=== PATIENT | female | born 1945 | race Caucasian/White ===

== ENCOUNTER 2016-09-28 19:10 | Inpatient (IN) | payer OTHER, MEDICARE ==
[~2016-09-28] VITALS: Ht 170.2 cm; Wt 105.0 kg
[~2016-09-28 19:10] MED LIST: ADVAIR 250-501 EACH INH; ALDACTONE50 M1 PO; AMBIEN5 M1 PO; AQUAPHOR396 GM TOP; COLACE100 M1 PO; DESITIN56 GM; DURAGESIC1 EAC1 TOP; EUCERIN CREME120 GM TOP; FENTANYL1 EAC2 TOP; FERROUS SULFAT325 M3 PO; FLORASTOR250 M1 PO; FUROSEMIDE20 M1 PO; FUROSEMIDE40 M1 PO; HYDROXYZINE HCL25 M2 PO; IPRAT-ALBUT 0.5-3 ML INH/SOL; LASIX40 M1 PO; LOTRIMIN AF12 GM TOP; LUMIGAN2.5 ML OPH; MELATONIN3 M4 PO; MORPHINE SULFAT15 M4 PO; MUPIROCIN22 GM TOP; MYLANTA PO; NEURONTIN100 M1 PO; NYSTATIN15 G1 TOP; OXYCODONE HCL10 M2 PO; PREDNISONE10 M2 PO; PREMARIN0.625 M1 PO; PREMARIN30 GM TOP; PROTONIX40 M3 PO; PROVENTIL HFA6.7 GM INH; ROZEREM8 M1 PO; SENNA8.6 M3 PO; SOTALOL80 M1 PO; SPIRIVA18 MCG INH; TEMOVATE15 GM TOP; TIZANIDINE HCL4 M1 PO; XEROFORM PETRO1 EAC1 TOP; XIFAXAN550 M1 PO
--- NOTE | 2016-09-28 19:16 | NUR ---
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
--- NOTE | 2016-09-28 19:43 | NUR ---
PT TO ED FOR WORSENING SOB AND COUGH OVER PAST TWO DAYS, REPORTS SHE WAS ADMITTED FOR A WEEK IN AUGUST WITH PNA, FEELS "ITS THE SAME" STARTED ON A ZPACK BY SARITA YESTERDAY BUT DOES NOT FEEL ANY BETTER. COARSE, NON-PRODUCTIVE COUGH NOTED, AUDIBLE WHEEZING IN TRIAGE.
--- NOTE | 2016-09-28 20:07 | ED DYSPNEA/ASTHMA COMPLAINT ---
History of Present Illness General Chief Complaint: Dyspnea (COPD, CHF, Other) Stated Complaint: SOB Source: patient, family, old records Exam Limitations: no limitations Vital Signs & Intake/Output Vital Signs & Intake/Output Vital Signs Date Time Temp Pulse Resp B/P Pulse O2 O2 Flow FiO2 Ox Delivery Rate 09/28 2258 98.6 66 24 100/62 92 Room Air 09/28 2123 99.0 71 16 126/59 95 Room Air 09/28 2014 97 09/28 1943 97.6 71 22 154/77 96 Room Air ED Intake and Output 09/29 0000 09/28 1200 Intake Total Output Total 700 Balance -700 Output, Urine 700 Patient 237 lb Weight Allergies Coded Allergies: azithromycin (Mild, RASH, ITCHY 09/28/16) Penicillins (ITCHY RASH 09/28/16) Sulfa (Sulfonamide Antibiotics) (ITCHY RASH 09/28/16) adhesive tape (ITCHY RASH 09/28/16) amantadine (ITCHY RASH 09/28/16) cefadroxil (ITCHY RASH 09/28/16) codeine (ITCHY RASH 09/28/16) erythromycin base (ITCHY RASH 09/28/16) sulfadiazine (ITCHY RASH 09/28/16) latex (Intermediate, CONTACT DERMATITIS 04/15/16) Triage Note: PT TO ED FOR WORSENING SOB AND COUGH OVER PAST TWO DAYS, REPORTS SHE WAS ADMITTED FOR A WEEK IN AUGUST WITH PNA, FEELS "ITS THE SAME" STARTED ON A ZPACK BY SARITA YESTERDAY BUT DOES NOT FEEL ANY BETTER. COARSE, NON-PRODUCTIVE COUGH NOTED, AUDIBLE WHEEZING IN TRIAGE. Triage Nurses Notes Reviewed? yes HPI: Patient is a 71-year-old female presents complaining of dyspnea. Symptoms 2-3 days. Cough with clear sputum production. Dyspnea is moderate at rest, worsens with lying flat and exertion. Patient has used her nebulizer 3 times today for albuterol treatments with minimal improvement. Patient was hospitalized approximately 7 weeks ago for pneumonia. Positive associated weakness. Chronic bilateral lower extremity edema that is unchanged per patient. Patient denies chest pain, fevers. (FEROZ LANG,AZUL) Reconcile Medications Albuterol Sulfate (Proventil Hfa) 6.7 GM HFA.AER.AD 2 PUF INH Q6 PRN wheezinG (Reported) Clobetasol Propionate (Temovate) 15 GM OINT...G. 1 PAM TOP BID skin lesions Cyanocobalamin (Vitamin B-12) (Vitamin B-12) 500 MCG TABLET 2 TAB PO DAILY SUPPLEMENT (Reported) Ergocalciferol (Vitamin D2) (Vitamin D2) 50,000 UNIT CAPSULE 1 CAP PO Q30D SUPPLEMENT (Reported) Estrogens, Conjugated (Premarin) 30 GM CREAM.APPL 1 PAM TOP TID women health (Reported) Fentanyl 1 EACH PATCH.TD72 25 MCG TOP Q72H Pain Apply to right hip, follow up with your pain doctor Ferrous Sulfate 325 MG TABLET 1 TAB PO BID iron (Reported) Fluticasone/Salmeterol (Advair 250-50 Diskus) 1 EACH BLST.W.DEV 1 PUF INH BID lung (Reported) Furosemide 20 MG TABLET 1 TAB PO DAILY FLUID RETENTION Gabapentin (Neurontin) 100 MG CAPSULE 2 CAP PO TID pain (Reported) Hydroxyzine HCl (Unknown Strength) TABLET (Unknown Dose) PO AD PRN ITCHING ( Reported) Ipratropium/Albuterol Sulfate (Iprat-Albut 0.5-3(2.5) MG/3 Ml) 3 ML AMPUL.NEB 3 ML INH/MAGO Q6 PRN shortness of breath (Reported) Mineral Oil/Petrolatum,White (Eucerin Creme) 120 GM CREAM..G. 1 PAM TOP DAILY dry skin (Reported) Nystatin 15 GM CREAM..G. 1 PAM TOP BID antifungal (Reported) apply to affected area(s) Oxycodone HCl 10 MG TABLET 1 TAB PO TID PAIN (Reported) Pantoprazole Sodium (Protonix) 40 MG TABLET.DR 1 TAB PO DAILY stomach ( Reported) Petrolatum,White (Aquaphor) 396 GM OINT...G. 1 PAM TOP DAILY skin lesion apply on left leg Ramelteon (Rozerem) 8 MG TABLET 1 TAB PO QPM PRN SLEEP Take 30 minutes before bedtime for sleep. Rifaximin (Xifaxan) 550 MG TABLET 1 TAB PO BID diarrhea (Reported) Saccharomyces Boulardii (Florastor) 250 MG CAPSULE 250 MG PO BID probiotic ( Reported) Sennosides (Senna) 8.6 MG TABLET 2 TAB PO AT BEDTIME constipation (Reported) Sotalol HCl (Sotalol) 80 MG TABLET 0.5 TAB PO BID heart (Reported) Tiotropium Comins (Spiriva) 18 MCG CAP.W.DEV 1 CAP INH DAILY lung (Reported) Tizanidine HCl 4 MG TABLET 1 TAB PO QPM sleep (Reported) Zinc Oxide (Desitin) (Unknown Strength) CREAM..G. (Unknown Dose) TID skin ( Reported) (NOEMY HOLLAND,ROSE Jones) Past History Travel History Traveled to [place] past 21 day No Medical History Any Pertinent Medical History? 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 History of MRSA: No History of VRE: No History of CDIFF: No Pneumonia Vaccine: 09/16/13 Influenza Vaccine: 06/18/16 Surgical History Surgical History: cholecystectomy, hysterectomy, knee replacement, cervical disc surgery ulnar surgery resection of GI carcinoma left heel spur surgery Psychosocial History Who do you live with Patient/Self Services at Home Nursing What is your primary language Maori Tobacco Use: Current Daily Use Daily Tobacco Use Amount/Type: => 5 Cigarettes daily ETOH Use: denies use Illicit Drug Use: denies illicit drug use Family History Family History, If Any: FATHER (Throat cancer and smoker). Hx Contributory? No (AZUL JACKSON) Review of Systems Review of Systems Constitutional: Reports: malaise, weakness. Denies: chills, fever. EENTM: Reports: no symptoms. Respiratory: Denies: cough, short of breath. Cardiovascular: Reports: orthopena, peripheral edema. Denies: chest pain. GI: Denies: abdominal pain, nausea, vomiting. Musculoskeletal: Reports: back pain (chronic). Skin: Denies: rash. Neurological/Psychological: Denies: headache, numbness. Hematologic/Endocrine: Denies: bruising, bleeding. Immunologic/Allergic: Denies: splenectomy, lymphadenopathy. (AZUL JACKSON) Physical Exam Physical Exam General Appearance: alert, awake, obese Head: atraumatic, normal appearance Eyes: Bilateral: normal appearance, PERRL, EOMI. Ears, Nose, Throat: normal pharynx, hearing grossly normal Neck: normal inspection, supple, full range of motion Respiratory: DIFFUSE MODERATE INSPIRATORY AND EXPIRATORY WHEEZING WITH BIBASILAR RHONCHI Cardiovascular: regular rate/rhythm Gastrointestinal: soft, non-tender Extremities: 3+ BILATERAL LOWER EXTREMITY EDEMA Skin: intact, normal color, warm/dry Lymphatic: no anterior cervical apryl Core Measures ACS in differential dx? Yes ASA ordered for poss ACS? No-ACS ruled out Severe Sepsis Present: No Septic Shock Present: No (FEROZ LANG,AZUL) Progress Differential Diagnosis: asthma, AMI, bronchitis, CHF, COPD, pulmonary embolism, pneumonia, unstable angina Plan of Care: Orders Procedure Date/time Status Heart Healthy Diet 09/29 B Active CBC WITHOUT DIFFERENTIAL 09/29 06 Active BASIC ELECTROLYTES PLUS BUN&CR 09/29 0600 Active TRC EVALUATION (GEN) 09/28 2300 Active Intake & Output 09/28 225 Active Pathway - chart 09/28 225 Active House Staff 09/28 225 Active Patient Data 09/28 2252 Active Patient Data 09/28 2230 Active Saline Lock 09/28 2200 Active Misc Message 09/28 2200 Active ED Holding Orders 09/28 2200 Active Admit to inpatient 09/28 220 Active Vital Signs 09/28 2200 Active Code Status 09/28 2200 Active TROPONIN LEVEL 09/28 2014 Complete B-TYPE NATRIURETIC PEP (BNP) 09/28 2014 Complete RAPID VIRAL INFLUENZA A 09/28 2011 Complete BLOOD CULTURE 09/28 2011 Active PROTHROMBIN TIME 09/28 2011 Complete LACTIC ACID 09/28 2011 Complete EKG 09/28 2011 Active COMPREHENSIVE METABOLIC PANEL 09/28 1944 Complete CBC WITHOUT DIFFERENTIAL 09/28 1944 Complete VTE Mechanical Prophylaxis 09/28 UNK Active Telemetry/Staff Trainer 09/28 UNK Active Current Medications Sig/Barbara Start time Last Medication Dose Stop Time Status Admin Melatonin 3 MG AT BEDTIME 09/29 2199 AC (Melatonin) Tizanidine HCl 4 MG QPM 09/29 2199 AC (Zanaflex) Ferrous Sulfate 325 MG BID 09/29 1000 AC (Feosol) Furosemide 40 MG DAILY 09/29 1000 AC (Lasix) Sotalol HCl 40 MG BID 09/29 1000 AC (Betapace) Tiotropium Comins 1 PUF DAILY 09/29 1000 AC (Spiriva) Heparin Sodium 5,000 UNIT Q8 09/29 0600 AC (Porcine) Methylprednisolone 40 MG Q8 09/28 2359 AC (Solumedrol) Oxycodone HCl 10 MG TID PRN 09/28 2330 AC (Roxicodone) Acetaminophen 650 MG Q6P PRN 09/28 2300 AC (Tylenol) Laboratory Tests 09/28/16 2312: Lactic Acid Cancelled 09/28/162014: Lactic Acid 0.7 09/28/16 2015: Anion Gap 10, Estimated GFR 45 L, BUN/Creatinine Ratio 16.7, Glucose 99, Calcium 8.6, Total Bilirubin 0.5, AST 36, ALT 13, Alkaline Phosphatase 149 H, Troponin I < 0.01, Dtx-D-Tvndtgabvam Pept 2020 H, Total Protein 6.8, Albumin 3.5, Globulin 3.3, Albumin/Globulin Ratio 1.1, PT 11.4, INR 1.09, CBC w Diff NO MAN DIFF REQ, RBC 3.54 L, MCV 98.1, MCH 32.8 H, RDW 14.6 H, MPV 8.1, Gran % 68.8, Lymphocytes % 19.3 L, Monocytes % 7.6, Eosinophils % 3.5, Basophils % 0.8 , Absolute Granulocytes 3.4, Absolute Lymphocytes 0.9 L, Absolute Monocytes 0.4 , Absolute Eosinophils 0.2, Absolute Basophils 0, PUBS MCHC 33.4 Microbiology 09/28 2049 BLOOD: Blood Culture - RECD 09/28 2014 BLOOD: Blood Culture - RECD Patient re-evaluated multiple times. Mild improvement after nebulizer treatment. Results of labs and chest x-ray discussed with patient and her . Patient ambulated to bathroom with significant respiratory distress and oxygen saturation down to 90-91% on room air. Discussed with Dr. Vallejo. Dr. Vallejo discussed patient with Dr. Campos for admission (AZUL JACKSON) Diagnostic Imaging: Viewed by Me: Radiology Read. Discussed w/RAD: Radiology Read. CXR Impression: PATIENT: MAGDIEL SAMAYOA PRESENT AGE: 71 PATIENT ACCOUNT NO: [id number] : 47 LOCATION: [facility] ORDERING PHYSICIAN: RETA DASILVA DO SERVICE DATE: 09/28/16 EXAM TYPE: RAD - XRY-CHEST XRAY, PA AND LATERAL EXAMINATION: XR CHEST CLINICAL INFORMATION: Cough. Shortness of breath. COMPARISON: Chest x-ray 08/22/2016. TECHNIQUE: Chest portable, 8:37 AM FINDINGS: There is persistent congestive heart failure with prominence of the pulmonary vessels and increased interstitial markings. No dense consolidation. No pleural effusion. Heart size is enlarged. IMPRESSION: Persistent mild pulmonary vascular congestion, congestive heart failure. DICTATED BY: DELMER CANTRELL MD DATE/TIME DICTATED:09/28/162106 DETECTIVE AND INTELLIGENCE ANALYST :AKOSUA DATE/TIME TRANSCRIBED:09/28/162106 CONFIDENTIAL, DO NOT COPY WITHOUT APPROPRIATE AUTHORIZATION. <Electronically signed in Other Vendor System> SIGNED BY: DELMER CANTRELL MD 09/28/162111 Initial ED EKG: normal axis, normal intervals, normal p-waves, normal QRS complex, normal sinus rhythm, no ST T wave changes Rhythm Strip: normal sinus rhythm (AZUL JACKSON) Departure Departure Disposition: STILL A PATIENT Condition: Stable Clinical Impression Primary Impression: CHF exacerbation Qualifiers: Congestive heart failure type: unspecified congestive heart failure type Qualified Code: I50.9 - Heart failure, unspecified Secondary Impressions: COPD exacerbation Referrals: JOHANNA CHRISTIANSON MD (PCP/Family) Departure Forms: Customer Survey General Discharge Information (AZUL JACKSON) Admission Note Spoke With: ANANYA CAMPOS MD Documentation of Exam: Documentation of any treatments & extenuating circumstances including Concerns Regarding Discharge (functional status, medication knowledge or non-compliance, living conditions, etc.) that warrant an admission rather than observation: pt with bronchospasm, wheezing, most consistent with copd, also with component, of chf... pt will be admitted to tele for rule out and cardiac monitoring. PA/DELIVERY STOCK CLERK Co-Sign Statement Statement: ED Attending supervision documentation- [] I saw and evaluated the patient. I have also reviewed all the pertinent lab results and diagnostic results. I agree with the findings and the plan of care as documented in the PA's/DELIVERY STOCK CLERK's documentation. [x] I have reviewed the ED Record and agree with the PA's/DELIVERY STOCK CLERK's documentation. pt signed out to me... pt to be admitted for copd/chf exacerbation... see note above. [] Additions or exceptions (if any) to the PAs/DELIVERY STOCK CLERK's note and plan are summarized below: [] (NOEMY HOLLAND,ROSE Jones) Critical Care Note Critical Care Note Critical Care Time: non-applicable (FEROZ LANG,AZUL)
--- NOTE | 2016-09-28 20:09 | NUR ---
RICKEY Roberto AT BEDSIDE
--- NOTE | 2016-09-28 20:25 | NUR ---
LABS SENT (BLUE,SST,LAV,JOSE, BC#1)
[2016-09-28 20:47] LABS: ABSOLUTE BASOPHIL COUNT 0 /CUMM (0.0-0.2); ABSOLUTE EOSINOPHIL COUNT 0.2 /CUMM (0.0-0.7); ABSOLUTE GRANULOCYTE CT 3.4 /CUMM (1.4-6.5); ABSOLUTE LYMPH COUNT 0.9 /CUMM (1.2-3.4); ABSOLUTE MONOCYTE COUNT 0.4 /CUMM (0.10-0.60); BASOPHIL % 0.8 % (0.0-2.0); EOSINOPHIL % 3.5 % (0-5); GRANULOCYTE % 68.8 % (42.2-75.2); HEMATOCRIT 34.7 % (37-47); MEAN CORPUSCULAR HGB 32.8 PG (27.0-31.0); MEAN CORPUSCULAR HGB CONC 33.4 G/DL (33.0-37.0); MEAN CORPUSCULAR VOLUME 98.1 FL (81.0-99.0); MEAN PLATELET VOLUME 8.1 FL (7.4-10.4); PLATELET COUNT 224 /CUMM (130-400); RBC DISTRIBUTION WIDTH 14.6 % (11.5-14.5); RED BLOOD CELL CT 3.54 /CUMM (4.20-5.40); WHITE BLOOD CELL COUNT 4.9 /CUMM (4.8-10.8)
--- NOTE | 2016-09-28 20:57 | NUR ---
20G IV PLACED IN RIGHT AC. FLUSHED PER PROTOCOL. NO REDNESS, SWELLING, PAIN, OR HEAT AT SITE. SOLUMEDROL, 125MG IV, ADMINISTERED PER EMAR. 2ND SET OF CULTURES DRAWN AND SENT TO LAB. PT TOLERATED PROCEDURES WELL.
[2016-09-28 20:59] LABS: PT 11.4 SEC (9.4-12.5)
--- NOTE | 2016-09-28 21:12 | RADIOLOGY REPORT ---
EXAMINATION: XR CHEST CLINICAL INFORMATION: Cough. Shortness of breath. COMPARISON: Chest x-ray 08/22/2016. TECHNIQUE: Chest portable, 8:37 AM FINDINGS: There is persistent congestive heart failure with prominence of the pulmonary vessels and increased interstitial markings. No dense consolidation. No pleural effusion. Heart size is enlarged. IMPRESSION: Persistent mild pulmonary vascular congestion, congestive heart failure.
--- NOTE | 2016-09-28 22:00 | NUR ---
PT AMBULATED TO BATHROOM. O2 SATS 90-91%.
--- NOTE | 2016-09-28 22:10 | NUR ---
RESPIRATORY ADMINISTERED TREATMENT TO PT. LASIX, 20MG IV, ADMINISTERED PER EMAR. PT TO BE ADMITTED AND AGREEABLE TO PLAN OF CARE. WILL CONTINUE TO MONITOR.
[2016-09-28] MEDS ORDERED: HYDROXYZINE HCL50 M1 PO (22:18)
[2016-09-28] MEDS ORDERED: OXYCODONE HCL10 M2 PO (22:18)
[2016-09-28] MEDS ORDERED: VITAMIN D250000 UNIT PO (22:19)
[2016-09-28] MEDS ORDERED: VITAMIN B-12500 MC2 PO (22:19)
--- NOTE | 2016-09-28 22:35 | History & Physical ---
JIM HOLLAND,[facility] – [place] 09/28/16 2234: General Information and HPI MD Statement: I have seen and personally examined MAGDIEL SAMAYOA and documented this H&P. The patient is a 71 year old F who presented with a patient stated chief complaint of shortness of breath. Source of Information: patient, old records Exam Limitations: no limitations History of Present Illness: Ms Margarita is a 71 y/o F with PMHx of diastolic CHF, CAD, PAF not on anti- coagulation, COPD not on home oxygen, chronic venous insufficiency c/b leg ulcers, HTN, fibromyalgia, depression/anxiety, osteoarthritis, cirrhosis c/b esophageal varices and upper GI bleed and JOSSUE who presents with worsening SOB x 3 days. SOB is present even at rest, but is exacerbated by exertion. She endorses cough productive of clear sputum and orthopnea as well and reports that she has required 4 pillows last night, increased from her baseline of 3 pillows. She has been using her nebulizer three times per day with no improvement. She denies fever, chills, chest pain, nausea, vomiting, abdominal pain, diarrhea, urinary symptoms, lightheadedness or dizziness. She has bilateral lower extremity edema secondary to chronic venous insufficiency at baseline which is unchanged per patient. Patient reports that she saw Dr. Ayala earlier in the week and was fine at that time. Of note, patient was hospitalized here at [facility] between 08/22/2016 and 08/29/2016 for COPD exacerbation, treated with steroids and IV azithromycin and discharged on prednisone taper which she has completed. She had sinus bradycardia during that admission and was discharged on Holter monitor to see if her heart rate is acceptable during activities of daily living, the results of which were normal per patient. Allergies/Medications Allergies: Coded Allergies: azithromycin (Mild, RASH, ITCHY 09/28/16) Penicillins (ITCHY RASH 09/28/16) Sulfa (Sulfonamide Antibiotics) (ITCHY RASH 09/28/16) adhesive tape (ITCHY RASH 09/28/16) amantadine (ITCHY RASH 09/28/16) cefadroxil (ITCHY RASH 09/28/16) codeine (ITCHY RASH 09/28/16) erythromycin base (ITCHY RASH 09/28/16) sulfadiazine (ITCHY RASH 09/28/16) latex (Intermediate, CONTACT DERMATITIS 04/15/16) Home Med list Albuterol Sulfate (Proventil Hfa) 6.7 GM HFA.AER.AD 2 PUF INH Q6 PRN wheezinG (Reported) Clobetasol Propionate (Temovate) 15 GM OINT...G. 1 PAM TOP BID skin lesions Cyanocobalamin (Vitamin B-12) (Vitamin B-12) 500 MCG TABLET 2 TAB PO DAILY SUPPLEMENT (Reported) Ergocalciferol (Vitamin D2) (Vitamin D2) 50,000 UNIT CAPSULE 1 CAP PO Q30D SUPPLEMENT (Reported) Estrogens, Conjugated (Premarin) 30 GM CREAM.APPL 1 PAM TOP TID women health (Reported) Fentanyl 1 EACH PATCH.TD72 25 MCG TOP Q72H Pain Apply to right hip, follow up with your pain doctor Ferrous Sulfate 325 MG TABLET 1 TAB PO BID iron (Reported) Fluticasone/Salmeterol (Advair 250-50 Diskus) 1 EACH BLST.W.DEV 1 PUF INH BID lung (Reported) Furosemide 20 MG TABLET 1 TAB PO DAILY FLUID RETENTION Gabapentin (Neurontin) 100 MG CAPSULE 2 CAP PO TID pain (Reported) Hydroxyzine HCl (Unknown Strength) TABLET (Unknown Dose) PO AD PRN ITCHING ( Reported) Ipratropium/Albuterol Sulfate (Iprat-Albut 0.5-3(2.5) MG/3 Ml) 3 ML AMPUL.NEB 3 ML INH/MAGO Q6 PRN shortness of breath (Reported) Mineral Oil/Petrolatum,White (Eucerin Creme) 120 GM CREAM..G. 1 PAM TOP DAILY dry skin (Reported) Nystatin 15 GM CREAM..G. 1 PAM TOP BID antifungal (Reported) apply to affected area(s) Oxycodone HCl 10 MG TABLET 1 TAB PO TID PAIN (Reported) Pantoprazole Sodium (Protonix) 40 MG TABLET.DR 1 TAB PO DAILY stomach ( Reported) Petrolatum,White (Aquaphor) 396 GM OINT...G. 1 PAM TOP DAILY skin lesion apply on left leg Ramelteon (Rozerem) 8 MG TABLET 1 TAB PO QPM PRN SLEEP Take 30 minutes before bedtime for sleep. Rifaximin (Xifaxan) 550 MG TABLET 1 TAB PO BID diarrhea (Reported) Saccharomyces Boulardii (Florastor) 250 MG CAPSULE 250 MG PO BID probiotic ( Reported) Sennosides (Senna) 8.6 MG TABLET 2 TAB PO AT BEDTIME constipation (Reported) Sotalol HCl (Sotalol) 80 MG TABLET 0.5 TAB PO BID heart (Reported) Tiotropium [place] (Spiriva) 18 MCG CAP.W.DEV 1 CAP INH DAILY lung (Reported) Tizanidine HCl 4 MG TABLET 1 TAB PO QPM sleep (Reported) Zinc Oxide (Desitin) (Unknown Strength) CREAM..G. 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 Psychosocial History Where do you live? Home Who Do You Live With? Brother Lives Below her Services at Home: Nursing Primary Language: Uruguayan Smoking Status: Current Everyday Smoker ETOH Use: denies use Illicit Drug Use: denies illicit drug use Functional Ability ADLs Independent: dressing, eating, toileting, bathing. Ambulation: cane Review of Systems Review of Systems Constitutional: Denies: chills, fever. EENTM: Reports: no symptoms. Cardiovascular: Denies: chest pain. Respiratory: Reports: cough, short of breath, sputum production. GI: Denies: abdominal pain, diarrhea, nausea, vomiting. Genitourinary: Reports: no symptoms. Musculoskeletal: Reports: no symptoms. Skin: Reports: no symptoms. Neurological/Psychological: Reports: no symptoms. Hematologic/Endocrine: Reports: no symptoms. Immunologic/Allergic: Reports: no symptoms. Exam & Diagnostic Data Last 24 Hrs of Vital Signs/I&O Vital Signs Date Time Temp Pulse Resp B/P Pulse O2 O2 Flow FiO2 Ox Delivery Rate 09/29 0037 Room Air 09/29 0025 Room Air 09/29 0015 98.5 62 20 122/60 93 Room Air 09/28 2258 98.6 66 24 100/62 92 Room Air 09/28 2123 99.0 71 16 126/59 95 Room Air 09/28 2014 97 09/28 1943 97.6 71 22 154/77 96 Room Air Intake & Output 09/29 0800 09/29 0000 09/28 1600 Intake Total Output Total 700 Balance -700 Output, Urine 700 Patient 107.501 kg 107.501 kg Weight Physical Exam General Appearance Alert, Oriented X3, No Acute Distress HEENT Mucous Membr. moist/pink Cardiovascular Regular Rate, Normal S1, Normal S2 Lungs Bilateral Wheezes and Rhonchi Scattered Throughout Lung [place] Abdomen Soft, No Tenderness, Positive Bowel Sounds Neurological No Gross Focal Deficits Noted Extremities No Clubbing, No Cyanosis, Bilateral Lower Extremities with Trace Edema And Chronic Venous Stasis Changes Last 24 Hrs of Labs/Jewel: Laboratory Tests 09/28/16 2312: Lactic Acid Cancelled 09/28/162014: Lactic Acid 0.7 09/28/16 2015: Anion Gap 10, Estimated GFR 45 L, BUN/Creatinine Ratio 16.7, Glucose 99, Calcium 8.6, Total Bilirubin 0.5, AST 36, ALT 13, Alkaline Phosphatase 149 H, Troponin I < 0.01, Tmm-Y-Cewbambfcxa Pept 2020 H, Total Protein 6.8, Albumin 3.5, Globulin 3.3, Albumin/Globulin Ratio 1.1, PT 11.4, INR 1.09, CBC w Diff NO MAN DIFF REQ, RBC 3.54 L, MCV 98.1, MCH 32.8 H, RDW 14.6 H, MPV 8.1, Gran % 68.8, Lymphocytes % 19.3 L, Monocytes % 7.6, Eosinophils % 3.5, Basophils % 0.8 , Absolute Granulocytes 3.4, Absolute Lymphocytes 0.9 L, Absolute Monocytes 0.4 , Absolute Eosinophils 0.2, Absolute Basophils 0, PUBS MCHC 33.4 Microbiology 09/28 2049 BLOOD: Blood Culture - RECD 09/28 2014 BLOOD: Blood Culture - RECD Diagnostic Data EKG Results Normal sinus rhythm HR 64 No significant change since previous tracing QTc 442 CXR Results Persistent mild pulmonary vascular congestion, congestive heart failure. Assessment/Plan Assessment: 71 y/o F with PMHx of COPD, diastolic CHF and PAF not on anti-coagulation who presents with SOB x 3 days. #COPD exacerbation: SOB, productive cough and significant rhonchi and wheezing on exam consistent with COPD exacerbation. CHF exacerbation is on the differential but less likely given CXR with only mild pulmonary vascular congestion, no signs of volume overload on exam and lack of oxygen requirement. Pneumonia unlikely in the absence of fever, leukocytosis and infiltrates on CXR. Patient is currently satting well on room air. * Solumedrol 40 mg IV Q8H started. * Azithromycin 500 mg PO QD x 1 dose, followed by 250 mg PO QD x 4 doses. * TRC and nebs. * Sputum Cx and BCx ordered. * Continue home inhalers Spiriva 1 puff QD and Symbicort 2 puffs BID. #Acute on chronic diastolic CHF: CXR with persistent mild pulmonary vascular congestion. pro BNP elevated at 2020 but not as high as previous admission (3490 ). No signs of volume overload on exam. Most recent ECHO with LVEF >65%. * Cardiology consulted. Appreciate their recs. * Patient admitted to the telemetry floor for continuous cardiac monitoring. * Monitor strict I/Os and daily weights. * Lasix 20 mg IV QD started. #Bilateral lower extremity swelling: Patient has chronic venous insufficiency at baseline and reports no increase in leg swelling from baseline, but DVT needs to be ruled out. * Doppler US of BLE ordered to rule out DVT. #Paroxysmal atrial fibrillation: Rhythm controlled with sotalol. Warfarin stopped in 2014 due to an episode of esophageal variceal bleeding. In sinus rhythm on admission. * Continue home sotalol 40 mg PO BID. #Chronic normocytic anemia: Hgb 11.1 on admission, which appears to be baseline for patient. * Continue home ferrous sulfate 325 mg PO BID. #Chronic pain: History of chronic pain secondary to arthritis and fibromyalgia. * Continue home oxycodone 30 mg PO TID PRN, gabapentin 200 mg PO TID and Fentanyl 25 mcg patch. * Tylenol 650 mg PO Q6H PRN for mild pain (scale 1-3). #Insomnia: * Continue home Tizanidine 4 mg PO QHS. * Melatonin 3 mg PO QPM. Diet: Heart Healthy DVT PPx: HSQ and ALPs CODE: FULL As Ranked By This Provider Problem List: 1. COPD exacerbation 2. CHF exacerbation Qualifiers Congestive heart failure type: unspecified congestive heart failure type Qualified Code: I50.9 - Heart failure, unspecified 3. Chronic venous insufficiency 4. Nicotine dependence 5. Paroxysmal atrial fibrillation Core Measures/Miscellaneous Acute Coronary Syndrome ACS Diagnosis: No Cerebrovascular Accident CVA/TIA Diagnosis: No Congestive Heart Failure CHF Diagnosis: Yes Date of most recent Echo: 08/24/16 Last Known EF %: 65 BLADIMIR/ARB for EF <40%: No (EF greater than 65%) Venous Thromboembolism VTE Risk Factors: Acute medical illness, Age > 40, CHF or Resp failure, Obesity, Smoking VTE Prophylaxis Ordered Inpt: Mech & Pharm No Mech VTE prophylaxis d/t: No contraindications No VTE Pharm Prophylaxis d/t: No contraindications VTE Diagnosis: No VTE Type: NONE VTE Confirmed by (Test): NONE Severe Sepsis Severe Sepsis Present: No Septic Shock Septic Shock Present: No Miscellaneous Documentation Attending Case Discussed With: ANANYA YU MD Primary Care Physician: JOHANNA CHRISTIANSON MD Patient sees these Specialists Computer Networker - Mark Anthony Ayala MD Pain Specialist - Zechariah Rowe MD Level of Patient Care: Telemetry GIOVANNI TINEO 09/28/16 2303: Resident Review Statement Resident Statement: examined this patient, discussed with internet project manager, agreed with internet project manager Other Findings: Patient is a 71-year-old woman with past medical history significant for paroxysmal atrial fibrillation(not on anticoagulation due to cirrhosis and esophageal varices) hypertension, COPD, GERD, GI bleed, chronic back pain with this radiations history of fibromyalgia arthritis insomnia osteoporosis, colon cancer , recently admitted to [facility] due to acute hypoxic respiratory failure from CHF and COPD, presented to the ED with a chief complaints of worsening shortness of breath for the last 3 days. Patient mentioned that for the last 3 days she was getting more short of breath both at rest and on exertion, used her nebulizer 3 times without much improvement in her symptoms. She was using 4 pillows at bedtime(usually uses 3 pillows). Also reported nonproductive cough. Denies any fever or chills recent infections/sick contacts or recent travels. Denied any chest discomfort palpitations. No urinary or bowel habit complaints. Appetite remains low. Denies any nausea vomiting or abdominal discomfort. She has a history of chronic bilateral lower extremity swelling with redness due to chronic venous stasis that remained unchanged. Of the note , she had bradycardia on her last admission to [facility] evaluated by Dr. Ayala and was discharged home with Holter monitor. She was seen at Dr. Ayala's office last week Holter monitor readings were checked that were normal Vitals on admission temperature 9 9, pulse 71, respiratory rate 16, blood pressure: 126/59 on room air. General Appearance: Alert, No Acute Distress, Skin: Grossly normal HEENT: PEERLA Neck: Supple, No JVD Cardiovascular: Regular Rate, Normal S1, Normal S2, No Murmurs Lungs: Bilateral rhonchi with wheeze on examination. Abdomen: Normal Bowel Sounds, Soft, positive suprapubic tenderness Neurological: Normal strength bilaterally in upper and lower extremities. With normal sensations cranial nerves 3-12 intact Extremities: Bilateral chronic edema with redness Vascular: Normal Pulses. Pertinent labs on admission WBC count 4.9, H&H 11.6/34.7, with MCV of 98 INR 1.09, elevated BUN and creatinine 20/1.2 Elevated proBNP 2020, first troponin negative with EKG done in the ED showed normal sinus rhythm. Chest x-ray Persistent mild pulmonary vascular congestion, congestive heart failure. Echocardiogram done in August showed:Normal left ventricular wall motion. Normal left ventricular ejection fraction visually estimated at greater than 65%. Restrictive filling pattern of the left ventricle for age (stage 3 diastolic dysfunction. Assessment and plan: 1.Acute Respiratory distress due to COPD exacerbation * We'll admit the patient to telemetry floor * Patient did receive one-time dose of IV Solu-Medrol 100 mg in the ED will continue with IV Solu-Medrol 40 mg every 8 hours. * pt received azithromycin as an out pt , no need to give any antibiotics at this time. * Continue home medications including Advair and Spiriva * Continue TRC nebs * Sputum and blood cultures * Oxygen as needed to keep saturations above 92% * Watch for any hemodynamic instability. 2. Acute on chronic diastolic heart failure * Elevated pro-BMP with chest x-ray findings inconsistent with CHF * Patient RECEIVED IV Lasix 40 mg in the ED will continue with IV Lasix 40 mg. * Call cardiology in the morning * Monitor strict ins and outs with daily weight checks. 3. History of paroxysmal atrial fibrillation not on anticoagulation due to cirrhosis and variceal bleed * Continue rate control with sotalol. 4. History of chronic normocytic anemia: * Continue home dose of ferrous sulfate. 5. History of chronic back pain * Continue fentanyl patch and oxycodone 5. History of anxiety and depression: * Continue home medications. * Continue melatonin for sleep 5. History of chronic venous insufficiency 6. DVT prophylaxis with Lovenox 7. Patient is full code ANANYA YU 09/29/16 0406: Attending MD Review Statement Attending Statement Attending MD Statement: examined this patient, discuss w/resident/PA/BAR CATCHER, agreed w/resident/PA/BAR CATCHER, reviewed EMR data (avail), reviewed images, amended to note Attending Assessment/Plan: Chief complaint: Shortness of breath, wheezing, cough PMH: HFpEF, CAD, paroxysmal A. fib not on anticoagulation secondary to previous GI bleed, COPD, HTN, fibromyalgia, osteoarthritis, JOSSUE, ? Fatty liver/cirrhosis: ?Variceal bleed in past Patient presented with acute worsening of shortness of breath, productive cough with white sputum. Patient also endorses orthopnea, denies fever, chills, increased leg swellings, weight gain, LOC, palpitations. Vitals: Afebrile, HR, RR, BP in acceptable range. Saturating 93% on room air. On exam: A O 3, moderate respiratory distress, no JVD, no lymphadenopathy, mucosa moist, neck supple, no focal neurological deficit. RS: extensive wheezing bilaterally. CVS: S1-S2, abdomen: Obese, NT, ND, bowel sounds present. Bilateral lower extremity venous stasis changes, with trace edema. Labs: Hemoglobin 11.6 chronic, creatinine 1.2, proBNP 2020, troponin less than 0.01 otherwise CBC, LFT, BMP unremarkable. CXR: Mild pulmonary vascular congestion A and P #1 COPD exacerbation: Extensive wheezing bilaterally, start of breath cough with mild sputum production. No evidence of pneumonia on x-ray. No fever or significant leukocytosis. Continue IV Solu-Medrol 40 mg every 8 hours, albuterol and ipratropium nebulization, O2 by nasal cannula if required, Mucinex by mouth twice a day. Even though patient mentions that she is allergic to azithromycin, patient received azithromycin previous hospitalization without any reaction, continue IV azithromycin at this point for antibiotics and anti-inflammatory effect for COPD. Patient has chronic stasis changes bilateral lower extremity, ? Functional status, obtain bilateral lower extremity DVT Doppler to rule out. As patient has acute worsening of shortness of breath. #2 acute on chronic heart failure: With preserved ejection fraction, chest x-ray showed mild congestion, patient's proBNP is elevated but not as significant and previous hospitalization. Continue Lasix 20 mg IV in a.m., patient has mildly elevated creatinine, strict I's and O's, daily weights, cardiology consult in a.m. #3 continue her home medications for CAD, HTN, fibromyalgia, osteoarthritis. #4 adequate pain control, DVT prophylaxis with heparin.
--- NOTE | 2016-09-28 22:58 | NUR ---
TRANSFERRED PT FROM RM 19 TO RM 10 PT TO BEDSIDE COMMODE
--- NOTE | 2016-09-28 22:59 | NUR ---
[facility] ASSIGNMENT [id number]
--- NOTE | 2016-09-28 23:43 | NUR ---
PT MEDICATED WITH 200 MG NEURONTIN AND 2 PUFFS SYMBICORT ORDERED. REPORT GIVEN TO AMOS VIVEROS
[2016-09-29 00:15] VITALS: BP 122/60
--- NOTE | 2016-09-29 04:08 | Admission Certification ---
Admission Certification Certification Statement - As attending physician, I certify that at the time of - admission, based on clinical presentation, severity of - symptoms, need for further diagnostic testing and - therapeutic interventions, and risk of adverse outcomes - without in-hospital treatment, in my clinical assessment, - this patient requires an acute hospital stay for a minimum - of two nights or longer. I have also considered psychsocial - factors such as support system, advanced age, financial - issues, cognitive issues, and failed out-patient treatments, - past re-admission history, safety of patient, and lack of - compliance as applicable. Specific rationale supporting this admission is: COPD exacerbation, acute on chronic heart failure
[2016-09-29 07:30] VITALS: BP 110/60
--- NOTE | 2016-09-29 07:48 | PN- Housestaff ---
OTMAS HOLLAND,[facility] 09/29/16 0747: Subjective Follow-up For: COPD exacerbation Chronic diastolic heart failure [place] paroxysmal A. fib Subjective: Patient seen and examined this morning. She was lying in bed in no acute distress. She reported being short of breath, cough ductal sputum. He is afebrile other vitals within normal limits. Review of Systems Constitutional: Reports: see HPI. Objective Last 24 Hrs of Vital Signs/I&O Vital Signs Date Time Temp Pulse Resp B/P Pulse O2 O2 Flow FiO2 Ox Delivery Rate 09/29 0730 98.1 53 20 110/60 93 Room Air 09/29 0037 Room Air 09/29 0025 Room Air 09/29 0015 98.5 62 20 122/60 93 Room Air 09/28 2258 98.6 66 24 100/62 92 Room Air 09/28 2123 99.0 71 16 126/59 95 Room Air 09/28 2015 97 09/28 1943 97.6 71 22 154/77 96 Room Air Intake & Output 09/29 1600 09/29 0800 09/29 0000 Intake Total Output Total 700 Balance -700 Output, Urine 700 Patient 107.501 kg 107.501 kg Weight Physical Exam General Appearance: Alert, Oriented X3, Cooperative, No Acute Distress Cardiovascular: Regular Rate, Normal S1, Normal S2 Lungs: extensive wheezing bilaterally Abdomen: Normal Bowel Sounds, Soft, No Tenderness Extremities: bilateral lower extremity edema and rednessstasis Current Medications: Current Medications Sig/Barbara Start time Last Medication Dose Route Stop Time Status Admin Acetaminophen 650 MG Q6P PRN 09/28 2300 AC PO Albuterol Sulfate 3 ML ONCE ONE 09/280 DC 09/28 INH 09/28 Albuterol Sulfate 3 ML ONCE ONE 09/28 2014 DC 09/28 INH 09/28 Azithromycin 250 MG DAILY 09/29 1000 AC 09/29 PO 10/02 1001 0914 Azithromycin 500 MG ONCE ONE 09/29 0145 DC 09/29 PO 09/29 0146 0344 Budesonide/ 2 PUF BID 09/28 2258 AC 09/29 Formoterol Fumarate INH 0915 Fentanyl Citrate 25 MCG ONCE ONE 09/28 2230 DC 09/28 TOP 09/28 2231 2246 Ferrous Sulfate 325 MG BID 09/29 1000 AC 09/29 PO 0914 Furosemide 40 MG DAILY 09/29 1000 DC IV Furosemide 20 MG DAILY 09/29 1000 AC 09/29 IV 0916 Furosemide 0 .STK-MED ONE 09/28 2203 DC IV Furosemide 20 MG ONCE ONE 09/28 2199 DC 09/28 IV 09/28 2200 220 Gabapentin 200 MG TID 09/28 2259 AC 09/29 PO 0914 Guaifenesin 600 MG Q12 PRN 09/29 0115 AC PO Heparin Sodium 5,000 UNIT Q8 09/29 0600 AC 09/29 (Porcine) SC 0559 Ipratropium [place] 2.5 ML ONCE ONE 09/28 2014 DC 09/28 INH 09/28 Melatonin 3 MG AT BEDTIME 09/29 2199 AC PO Methylprednisolone 40 MG Q8 09/28 2359 AC 09/29 IV 0559 Methylprednisolone 0 .STK-MED ONE 09/28 2030 DC .ROUTE Methylprednisolone 125 MG ONCE ONE 09/28 2014 DC 09/28 IV 09/28 Oxycodone HCl 10 MG TID PRN 09/28 2330 AC 09/29 PO 0914 Ramelteon 8 MG QPM PRN 09/28 2300 DC PO Sotalol HCl 40 MG BID 09/29 1000 AC 09/29 PO 0914 Tiotropium [place] 1 PUF DAILY 09/29 1000 AC 09/29 INH 0915 Tizanidine HCl 4 MG QPM 09/29 2199 AC PO Last 24 Hrs of Lab/Jewel Results Last 24 Hrs of Labs/Mics: Laboratory Tests 09/29/16 0635: Anion Gap 9, Estimated GFR 49 L, BUN/Creatinine Ratio 19.1, CBC w Diff NO MAN DIFF REQ, RBC 3.32 L, MCV 98.2, MCH 33.5 H, RDW 14.0, MPV 8.4, Gran % 82.4 H, Lymphocytes % 16.0 L, Monocytes % 1.0 L, Eosinophils % 0.1, Basophils % 0.5, Absolute Granulocytes 2.9, Absolute Lymphocytes 0.6 L, Absolute Monocytes 0 L, Absolute Eosinophils 0, Absolute Basophils 0, PUBS MCHC 34.1 09/28/16 2312: Lactic Acid Cancelled 09/28/16 2015: Lactic Acid 0.7 09/28/16 2015: Anion Gap 10, Estimated GFR 45 L, BUN/Creatinine Ratio 16.7, Glucose 99, Calcium 8.6, Total Bilirubin 0.5, AST 36, ALT 13, Alkaline Phosphatase 149 H, Troponin I < 0.01, [id number]-[id number] Pept 2020 H, Total Protein 6.8, Albumin 3.5, Globulin 3.3, Albumin/Globulin Ratio 1.1, PT 11.4, INR 1.09, CBC w Diff NO MAN DIFF REQ, RBC 3.54 L, MCV 98.1, MCH 32.8 H, RDW 14.6 H, MPV 8.1, Gran % 68.8, Lymphocytes % 19.3 L, Monocytes % 7.6, Eosinophils % 3.5, Basophils % 0.8 , Absolute Granulocytes 3.4, Absolute Lymphocytes 0.9 L, Absolute Monocytes 0.4 , Absolute Eosinophils 0.2, Absolute Basophils 0, PUBS MCHC 33.4 Microbiology 09/28 2049 BLOOD: Blood Culture - RES 09/28 2014 BLOOD: Blood Culture - RES Assessment/Plan Assessment: 71 y/o F with PMHx of COPD, diastolic CHF and PAF not on anti-coagulation who presents with SOB x 3 days. #COPD exacerbation: Current symptoms are most likely secondary to COPD exacerbation given significant rhonchi and wheezeing on exam. CHF exacerbation is on the differential but less likely given CXR with only mild pulmonary vascular congestion, no signs of volume overload on exam and lack of oxygen requirement. Pneumonia unlikely in the absence of fever, leukocytosis and infiltrates on CXR. Patient is currently satting well on room air. Solumedrol 40 mg IV Q8H started. Azithromycin 500 mg PO QD x 1 dose, followed by 250 mg PO QD x 4 doses. TRC and nebs.Sputum Cx and BCx pending, will Continue home inhalers Spiriva 1 puff QD and Symbicort 2 puffs BID. #Diastolic CHF: Patient is without any signs of acute exacerbation on exam. Appreciate their recs.Patient admitted to the telemetry floor for continous cardiac monitoring.Monitor strict I/Os and daily weights.Lasix 20 mg IV QD started. Cardiology consulted. Follow-up recommendations. #Paroxysmal atrial fibrillation: Rhythm controlled with sotalol. Warfarin stopped in 2014 due to an episode of esophageal variceal bleeding. In sinus rhythm on admission. * Continue home sotalol 40 mg PO BID. #Chronic normocytic anemia: Hgb 11.1 on admission, baseline 8-9. * Continue home ferrous sulfate 325 mg PO BID. #Chronic pain: History of chronic pain secondary to arthritis and fibromyalgia. * Continue home morphine 15 mg Q3H PO PRN for pain scale 6-10, gabapentin 100 mg PO TID and Fentanyl 25 mcg patch. * Tylenol 650 mg PO Q6H PRN for pain scale 1-3. #Insomnia: * Continue home Ambien 5 mg PO QHS and Tizanidine 4 mg PO QHS. #Constipation: * Continue home Colace BID. Diet: Heart healthy diet DVT PPx: Lovenox and ALPs CODE: FULL Problem List: 1. COPD exacerbation 2. Paroxysmal atrial fibrillation Pain Ratin Pain Location: None Pain Goal: Remain pain free Pain Plan: Continue home morphine 15 mg Q3H PO PRN for pain scale 6-10, gabapentin 100 mg PO TID and Fentanyl 25 mcg patch. Tylenol 650 mg PO Q6H PRN for pain scale 1-3. Tomorrow's Labs & Rationales: cBC with WBC monitoring bep for lites monitoring. TOMAS HOLLAND,BERNARDO 09/29/16 1133: Attending MD Review Statement Attending Statement Attending MD Statement: examined this patient, discuss w/resident/PA/MECHANICS SUPERVISOR, agreed w/resident/PA/MECHANICS SUPERVISOR, reviewed EMR data (avail), discussed with nursing, reviewed images Attending Assessment/Plan: 71-year-old female with past medical history significant for hypertension, COPD (not on home oxygen) osteoarthritis, coronary artery disease, congestive heart failure, paroxysmal A. fib not on anticoagulation due to previous GI bleed is being admitted on the floor for shortness of breath. Patient was seen and examined on the bedside and was complaining of consistent shortness of breath even while going to the restroom. She was found to be afebrile, vitals stable and unremarkable physical examination with saturation of 93% on room air. She did had minor lower extremity edema and the chest x-ray showed mild pulmonary vascular congestion. We will continue to treat her for COPD exacerbation with Z-Paul, IV steroids and nebulization. Given her elevated proBNP she is also being kept on low-dose IV diuretics and cardiology would follow.
--- NOTE | 2016-09-29 08:18 | NUR ---
LATE ENTRY AT APPROXIMATELY 0000 PT ARRIVED TO FLOOR, VSS AT THIS TIME, WITH C/O PAIN 8/10 IN LEGS. MEDS GIVEN PER EMAR. PT WAS PLACED ON TELE MONITOR AND ORIENTED TO FLOOR/ROOM. BED IN LOWEST POSITION, CALL NAVEEN SARAH. WILL CONTINUE TO MONITOR.
[2016-09-29 08:37] LABS: ABSOLUTE BASOPHIL COUNT 0 /CUMM (0.0-0.2); ABSOLUTE EOSINOPHIL COUNT 0 /CUMM (0.0-0.7); ABSOLUTE GRANULOCYTE CT 2.9 /CUMM (1.4-6.5); ABSOLUTE LYMPH COUNT 0.6 /CUMM (1.2-3.4); ABSOLUTE MONOCYTE COUNT 0 /CUMM (0.10-0.60); BASOPHIL % 0.5 % (0.0-2.0); EOSINOPHIL % 0.1 % (0-5); GRANULOCYTE % 82.4 % (42.2-75.2); HEMATOCRIT 32.6 % (37-47); MEAN CORPUSCULAR HGB 33.5 PG (27.0-31.0); MEAN CORPUSCULAR HGB CONC 34.1 G/DL (33.0-37.0); MEAN CORPUSCULAR VOLUME 98.2 FL (81.0-99.0); MEAN PLATELET VOLUME 8.4 FL (7.4-10.4); PLATELET COUNT 178 /CUMM (130-400); RED BLOOD CELL CT 3.32 /CUMM (4.20-5.40); WHITE BLOOD CELL COUNT 3.6 /CUMM (4.8-10.8)
--- NOTE | 2016-09-29 14:40 | Cons- Cardiology ---
General Information and HPI Consulting Request Date of Consult: 09/29/16 Requested By: ANANYA UY MD Reason for Consult: Shortness of breath with acute on chronic heart failure Source of Information: patient, old records History of Present Illness: The patient is a 71-year-old female whose regular coach builder is Dr. Ayala who I am covering for today. The patient's past history is remarkable for chronic obstructive pulmonary disease, heart failure with normal ejection fraction, coronary disease, paroxysmal atrial fibrillation, hypertension, chronic venous insufficiency with stasis changes and leg ulcers, cirrhosis with esophageal varices and prior upper GI bleeding, and sleep apnea. The patient now presents to the hospital worsening shortness of breath. When the shortness of breath became prominent, even at rest, the patient came to the emergency him for further evaluation. The patient has had a cough, productive of clear sputum. She has also noted orthopnea, etc. She denies any other cardiac symptoms such as chest discomfort, etc. The patient apparently saw Dr. Ayala earlier this week and was fine at the time she was seen. Of note, she was hospitalized in August for an exacerbation of COPD with subsequent improvement. Allergies/Medications Allergies: Coded Allergies: azithromycin (Mild, RASH, ITCHY 09/28/16) Penicillins (ITCHY RASH 09/28/16) Sulfa (Sulfonamide Antibiotics) (ITCHY RASH 09/28/16) adhesive tape (ITCHY RASH 09/28/16) amantadine (ITCHY RASH 09/28/16) cefadroxil (ITCHY RASH 09/28/16) codeine (ITCHY RASH 09/28/16) erythromycin base (ITCHY RASH 09/28/16) sulfadiazine (ITCHY RASH 09/28/16) latex (Intermediate, CONTACT DERMATITIS 04/15/16) Home Med List: Albuterol Sulfate (Proventil Hfa) 6.7 GM HFA.AER.AD 2 PUF INH Q6 PRN wheezinG (Reported) Clobetasol Propionate (Temovate) 15 GM OINT...G. 1 PAM TOP BID skin lesions Cyanocobalamin (Vitamin B-12) (Vitamin B-12) 500 MCG TABLET 2 TAB PO DAILY SUPPLEMENT (Reported) Ergocalciferol (Vitamin D2) (Vitamin D2) 50,000 UNIT CAPSULE 1 CAP PO Q30D SUPPLEMENT (Reported) Estrogens, Conjugated (Premarin) 30 GM CREAM.APPL 1 PAM TOP TID women health (Reported) Fentanyl 1 EACH PATCH.TD72 25 MCG TOP Q72H Pain Apply to right hip, follow up with your pain doctor Ferrous Sulfate 325 MG TABLET 1 TAB PO BID iron (Reported) Fluticasone/Salmeterol (Advair 250-50 Diskus) 1 EACH BLST.W.DEV 1 PUF INH BID lung (Reported) Furosemide 20 MG TABLET 1 TAB PO DAILY FLUID RETENTION Gabapentin (Neurontin) 100 MG CAPSULE 2 CAP PO TID pain (Reported) Hydroxyzine HCl (Unknown Strength) TABLET (Unknown Dose) PO AD PRN ITCHING ( Reported) Ipratropium/Albuterol Sulfate (Iprat-Albut 0.5-3(2.5) MG/3 Ml) 3 ML AMPUL.NEB 3 ML INH/MAGO Q6 PRN shortness of breath (Reported) Mineral Oil/Petrolatum,White (Eucerin Creme) 120 GM CREAM..G. 1 PAM TOP DAILY dry skin (Reported) Nystatin 15 GM CREAM..G. 1 PAM TOP BID antifungal (Reported) apply to affected area(s) Oxycodone HCl 10 MG TABLET 1 TAB PO TID PAIN (Reported) Pantoprazole Sodium (Protonix) 40 MG TABLET.DR 1 TAB PO DAILY stomach ( Reported) Petrolatum,White (Aquaphor) 396 GM OINT...G. 1 PAM TOP DAILY skin lesion apply on left leg Ramelteon (Rozerem) 8 MG TABLET 1 TAB PO QPM PRN SLEEP Take 30 minutes before bedtime for sleep. Rifaximin (Xifaxan) 550 MG TABLET 1 TAB PO BID diarrhea (Reported) Saccharomyces Boulardii (Florastor) 250 MG CAPSULE 250 MG PO BID probiotic ( Reported) Sennosides (Senna) 8.6 MG TABLET 2 TAB PO AT BEDTIME constipation (Reported) Sotalol HCl (Sotalol) 80 MG TABLET 0.5 TAB PO BID heart (Reported) Tiotropium Surveyor (Spiriva) 18 MCG CAP.W.DEV 1 CAP INH DAILY lung (Reported) Tizanidine HCl 4 MG TABLET 1 TAB PO QPM sleep (Reported) Zinc Oxide (Desitin) (Unknown Strength) CREAM..G. (Unknown Dose) TID skin ( Reported) Current Medications: Current Medications Sig/Barbara Start time Last Medication Dose Route Stop Time Status Admin Acetaminophen 650 MG Q6P PRN 09/28 2300 AC PO Albuterol Sulfate 3 ML ONCE ONE 09/28 2199 DC 09/28 INH 09/28 2200 220 Albuterol Sulfate 3 ML ONCE ONE 09/28 2014 DC 09/28 INH 09/28 Azithromycin 250 MG DAILY 09/29 1000 AC 09/29 PO 10/02 1001 0914 Azithromycin 500 MG ONCE ONE 09/29 0145 DC 09/29 PO 09/29 0146 0344 Budesonide/ 2 PUF BID 09/28 2258 AC 09/29 Formoterol Fumarate INH 0915 Fentanyl Citrate 25 MCG ONCE ONE 09/28 2230 DC 09/28 TOP 09/28 223 224 Ferrous Sulfate 325 MG BID 09/29 1000 AC 09/29 PO 0914 Furosemide 40 MG DAILY 09/29 1000 DC IV Furosemide 20 MG DAILY 09/29 1000 AC 09/29 IV 0916 Furosemide 0 .STK-MED ONE 09/28 2203 DC IV Furosemide 20 MG ONCE ONE 09/28 2199 DC 09/28 IV 09/28 220 220 Gabapentin 200 MG TID 09/28 2259 AC 09/29 PO 0914 Guaifenesin 600 MG Q12 PRN 09/29 0115 AC PO Heparin Sodium 5,000 UNIT Q8 09/29 0600 AC 09/29 (Porcine) SC 1247 Ipratropium [place] 2.5 ML ONCE ONE 09/28 2014 DC 09/28 INH 09/28 Melatonin 3 MG AT BEDTIME 09/29 220 AC PO Methylprednisolone 40 MG Q8 09/28 2359 AC 09/29 IV 1246 Methylprednisolone 0 .STK-MED ONE 09/28 203 DC .ROUTE Methylprednisolone 125 MG ONCE ONE 09/28 2014 DC 09/28 IV 09/28 2016 2056 Oxycodone HCl 10 MG TID PRN 09/28 2330 AC 09/29 PO 0914 Ramelteon 8 MG QPM PRN 09/28 2300 DC PO Sotalol HCl 40 MG BID 09/29 1000 AC 09/29 PO 0914 Tiotropium Survey[place] 1 PUF DAILY 09/29 1000 AC 09/29 INH 0915 Tizanidine HCl 4 MG QPM 09/29 2200 AC PO Past History Travel History Traveled to [place] past 21 day No Medical History Neurological: migraine EENT: NONE Cardiovascular: AFIB, CAD, chronic venous insuff, diastolic CHF, hypertension, hyperlipidemia, PVD, descending aortic artery aneurysm Respiratory: COPD, JOSSUE Gastrointestinal: GERD, hiatal hernia, HX OF GI BLEED HX OF SBO Hepatic: cirrhosis, SBP Renal: NONE Musculoskeletal: chronic back pain, disk herniation, fibromyalgia, osteoarthritis Psychiatric: insomnia Endocrine: diabetes, osteoporosis Blood Disorders: anemia Cancer(s): HX OF ORAL CANCER REGULATORY LEADER/Reproductive: HYSTERECTOMY Surgical History Surgical History: cholecystectomy, hysterectomy, knee replacement, cervical disc surgery ulnar surgery resection of GI carcinoma left heel spur surgery Family History Relations & Conditions If Any: FATHER (Throat cancer and smoker). Psychosocial History Who Do You Live With? Brother Lives Below her Services at Home: Nursing Primary Language: Occitan Smoking Status: Current Everyday Smoker ETOH Use: denies use Illicit Drug Use: denies illicit drug use Functional Ability ADLs Independent: dressing, eating, toileting, bathing. Ambulation: cane ECHO Results (as available) Date of last Echo 08/24/16 EF% 65 Report: CONCLUSIONS Mild left ventricular dilatation. Mild concentric left ventricular hypertrophy. Normal left ventricular ejection fraction visually estimated at greater than 65%. Restrictive filling pattern of the left ventricle for age (stage 3 diastolic dysfunction). Mildly increased resting left ventricular outflow tract velocity (1.4 m/s). Mild right ventricular dilatation. Mild atrial dilatation. Trace to mild mitral regurgitation. No hemodynamically significant aortic stenosis. Trace aortic regurgitation. Trace tricuspid regurgitation. Mild pulmonary hypertension. Trace pulmonic regurgitation. Mildly dilated proximal ascending aorta (tube). Dilated inferior vena cava. Exam & Diagnostic Data Vital Signs and I&O Vital Signs Date Time Temp Pulse Resp B/P Pulse O2 O2 Flow FiO2 Ox Delivery Rate 09/29 0730 98.1 53 20 110/60 93 Room Air 09/29 0037 Room Air 09/29 0025 Room Air 09/29 0015 98.5 62 20 122/60 93 Room Air 09/28 2258 98.6 66 24 100/62 92 Room Air 09/28 2123 99.0 71 16 126/59 95 Room Air 09/28 2014 97 09/28 1943 97.6 71 22 154/77 96 Room Air Intake & Output 09/29 1600 09/29 0800 09/29 0000 09/28 1600 09/28 0800 09/28 0000 Intake Total Output Total 700 Balance -700 Output, Urine 700 Patient 237 lb 237 lb Weight Physical Exam: General Appearance Alert, Oriented X3, No Acute Distress, vital signs stable HEENT normal Cardiovascular Regular Rate, Normal S1, Normal S2, no audible murmurs Lungs Bilateral Wheezes and Rhonchi Scattered Throughout Lung [place] Abdomen Soft, No Tenderness, Positive Bowel Sounds Neurological No Gross Focal Deficits Noted Extremities No Clubbing, No Cyanosis, Bilateral Lower Extremities with Trace Pitting Edema on Chronic Venous Stasis Changes Labs/Jewel Results: Laboratory Tests 09/29 09/28 09/28 0635 2312 2014 Chemistry Sodium (137 - 145 mmol/L) 140 Potassium (3.5 - 5.1 mmol/L) 4.6 Chloride (98 - 107 mmol/L) 105 Carbon Dioxide (22 - 30 mmol/L) 26 Anion Gap (5 - 16) 9 BUN (7 - 17 mg/dL) 21 H Creatinine (0.5 - 1.0 mg/dL) 1.1 H Estimated GFR (>60 ml/min) 49 L BUN/Creatinine Ratio (7 - 25 %) 19.1 Lactic Acid (0.7 - 2.1 mmol/L) Cancelled 0.7 Hematology CBC w Diff NO MAN DIFF REQ WBC (4.8 - 10.8 /CUMM) 3.6 L RBC (4.20 - 5.40 /CUMM) 3.32 L Hgb (12.0 - 16.0 G/DL) 11.1 L Hct (37 - 47 %) 32.6 L MCV (81.0 - 99.0 FL) 98.2 MCH (27.0 - 31.0 PG) 33.5 H RDW (11.5 - 14.5 %) 14.0 Plt Count (130 - 400 /CUMM) 178 MPV (7.4 - 10.4 FL) 8.4 Gran % (42.2 - 75.2 %) 82.4 H Lymphocytes % (20.5 - 51.1 %) 16.0 L Monocytes % (1.7 - 9.3 %) 1.0 L Eosinophils % (0 - 5 %) 0.1 Basophils % (0.0 - 2.0 %) 0.5 Absolute Granulocytes (1.4 - 6.5 /CUMM) 2.9 Absolute Lymphocytes (1.2 - 3.4 /CUMM) 0.6 L Absolute Monocytes (0.10 - 0.60 /CUMM) 0 L Absolute Eosinophils (0.0 - 0.7 /CUMM) 0 Absolute Basophils (0.0 - 0.2 /CUMM) 0 PUBS MCHC (33.0 - 37.0 G/DL) 34.1 09/28 2014 Chemistry Sodium (137 - 145 mmol/L) 141 Potassium (3.5 - 5.1 mmol/L) 4.4 Chloride (98 - 107 mmol/L) 105 Carbon Dioxide (22 - 30 mmol/L) 26 Anion Gap (5 - 16) 10 BUN (7 - 17 mg/dL) 20 H Creatinine (0.5 - 1.0 mg/dL) 1.2 H Estimated GFR (>60 ml/min) 45 L BUN/Creatinine Ratio (7 - 25 %) 16.7 Glucose (65 - 99 mg/dL) 99 Calcium (8.4 - 10.2 mg/dL) 8.6 Total Bilirubin (0.2 - 1.3 mg/dL) 0.5 AST (14 - 36 U/L) 36 ALT (9 - 52 U/L) 13 Alkaline Phosphatase (<127 U/L) 149 H Troponin I (< 0.11 ng/ml) < 0.01 [id number] Pept (<125 pg/mL) 2020 H Total Protein (6.3 - 8.2 g/dL) 6.8 Albumin (3.5 - 5.0 g/dL) 3.5 Globulin (1.9 - 4.2 gm/dL) 3.3 Albumin/Globulin Ratio (1.1 - 2.2 %) 1.1 Coagulation PT (9.4 - 12.5 SEC) 11.4 INR (0.90 - 1.19) 1.09 Hematology CBC w Diff NO MAN DIFF REQ WBC (4.8 - 10.8 /CUMM) 4.9 RBC (4.20 - 5.40 /CUMM) 3.54 L Hgb (12.0 - 16.0 G/DL) 11.6 L Hct (37 - 47 %) 34.7 L MCV (81.0 - 99.0 FL) 98.1 MCH (27.0 - 31.0 PG) 32.8 H RDW (11.5 - 14.5 %) 14.6 H Plt Count (130 - 400 /CUMM) 224 MPV (7.4 - 10.4 FL) 8.1 Gran % (42.2 - 75.2 %) 68.8 Lymphocytes % (20.5 - 51.1 %) 19.3 L Monocytes % (1.7 - 9.3 %) 7.6 Eosinophils % (0 - 5 %) 3.5 Basophils % (0.0 - 2.0 %) 0.8 Absolute Granulocytes (1.4 - 6.5 /CUMM) 3.4 Absolute Lymphocytes (1.2 - 3.4 /CUMM) 0.9 L Absolute Monocytes (0.10 - 0.60 /CUMM) 0.4 Absolute Eosinophils (0.0 - 0.7 /CUMM) 0.2 Absolute Basophils (0.0 - 0.2 /CUMM) 0 PUBS MCHC (33.0 - 37.0 G/DL) 33.4 Diagnostic Data CXR Results FINDINGS: There is persistent congestive heart failure with prominence of the pulmonary vessels and increased interstitial markings. No dense consolidation. No pleural effusion. Heart size is enlarged. IMPRESSION: Persistent mild pulmonary vascular congestion, congestive heart failure. Assessment/Plan Assessment/Plan Assessment: 1. Acute, worsening, shortness of breath, likely multifactorial; exacerbation of COPD with likely superimposed acute on chronic heart failure 2. Heart failure, acute on chronic, with normal ejection fraction 3. Paroxysmal atrial fibrillation, not on anticoagulant therapy 4. Chronic anemia 5. Lower extremity edema with history of venous insufficiency 6. History of anxiety/depression Recommendations: -Continue as outlined by the medical team. -Monitor on telemetry -Aggressive pulmonary treatment as outlined -Diuresis with IV Lasix as outlined, adjusted dose as needed. -Continue to monitor her intakes, outputs, daily weights -Follow-up labs to reassess BUN, creatinine, lites, magnesium, etc. in the morning -Follow-up ECG in the morning -For now, I do not see a reason to repeat the echocardiogram. Consult Acknowledgment - Thank you for your consult request.
--- NOTE | 2016-09-29 15:23 | ULTRASOUND REPORT ---
EXAMINATION: US TRIPLEX LOWER EXTREMITY, BILATERAL CLINICAL INFORMATION: Shortness of breath; clinical question of deep venous thrombosis. COMPARISON: None. TECHNIQUE: Color-flow triplex imaging with spectral analysis and compression Doppler were performed on the bilateral lower extremities. FINDINGS: Respiratory variation, normal compression and augmented flow are noted throughout the bilateral lower extremities. The visualized common femoral vein, proximal greater saphenous vein, femoral vein, profunda femoral vein, popliteal vein and visualized mid calf venous segments show no evidence of deep venous thrombosis. There is no Lamas's cyst. A mildly enlarged reniform left inguinal lymph node is seen with dimensions of 3.3 x 1.3 x 3.1 cm. IMPRESSION: 1. Normal triplex scan without evidence of deep venous thrombosis involving the bilateral lower extremities. 2. A mildly enlarged, nonspecific left inguinal lymph node should be managed on a clinical basis.
[2016-09-29 15:37] VITALS: BP 124/60
[2016-09-29 22:00] VITALS: BP 100/60
[2016-09-30 08:00] VITALS: BP 120/64
[2016-09-30 10:24] LABS: ABSOLUTE BASOPHIL COUNT 0 /CUMM (0.0-0.2); ABSOLUTE EOSINOPHIL COUNT 0 /CUMM (0.0-0.7); ABSOLUTE GRANULOCYTE CT 4.2 /CUMM (1.4-6.5); ABSOLUTE LYMPH COUNT 0.9 /CUMM (1.2-3.4); ABSOLUTE MONOCYTE COUNT 0.3 /CUMM (0.10-0.60); BASOPHIL % 0.2 % (0.0-2.0); EOSINOPHIL % 0.1 % (0-5); GRANULOCYTE % 78.3 % (42.2-75.2); HEMATOCRIT 30.2 % (37-47); MEAN CORPUSCULAR HGB CONC 33.6 G/DL (33.0-37.0); MEAN CORPUSCULAR VOLUME 98.2 FL (81.0-99.0); MEAN PLATELET VOLUME 8.5 FL (7.4-10.4); PLATELET COUNT 193 /CUMM (130-400); RBC DISTRIBUTION WIDTH 14.2 % (11.5-14.5); RED BLOOD CELL CT 3.07 /CUMM (4.20-5.40); WHITE BLOOD CELL COUNT 5.4 /CUMM (4.8-10.8)
--- NOTE | 2016-09-30 10:53 | PN- Housestaff ---
JOSÉ HOLLAND,[facility] 09/30/16 1053: Subjective Follow-up For: Exacerbation of COPD Subjective: Patient was seen and examined this morning. She continues to complain of shortness of breath on exertion and chough with clear sputum. She also has been having a headache. She has features suggestive of chronic lower limb edema with skin changes ,she denies any recent change in the swelling. The patient heart rate went down to 40s while she was sleeping, the morning dose of sotalol was held. Review of Systems Constitutional: Denies: see HPI. Objective Last 24 Hrs of Vital Signs/I&O Vital Signs Date Time Temp Pulse Resp B/P Pulse O2 O2 Flow FiO2 Ox Delivery Rate 09/30 1647 97.8 46 18 122/76 96 09/30 0945 94 Room Air 09/30 0800 98.0 45 20 120/64 95 Room Air 09/30 0405 95 Room Air 09/30 0000 Room Air 09/29 2200 98.3 54 20 100/60 94 Room Air Intake & Output 09/30 1600 09/30 0800 09/30 0000 Intake Total 420 180 100 Output Total 950 350 300 Balance -530 -170 -200 Intake, IV 20 Intake, Oral 400 180 100 Output, Urine 950 350 300 Patient 106.821 kg Weight Physical Exam General Appearance: Alert, Oriented X3, Cooperative, No Acute Distress Skin: No Rashes, No Breakdown, No Significant Lesion Cardiovascular: Regular Rate, Normal S1, Normal S2, No Murmurs Lungs: bilateral diffuse wheeze Abdomen: Normal Bowel Sounds, Soft, No Tenderness Neurological: Normal Speech, Strength at 5/5 X4 Ext, Normal Tone, Sensation Intact, Cranial Nerves 3-12 NL, Reflexes 2+ Extremities: No Clubbing, No Cyanosis, bilateral trace pedal edema with chronic venious skin changes Assessment/Plan Assessment: 71 y/o F with PMHx of COPD, diastolic CHF and PAF not on anti-coagulation who presents with SOB x 3 days. #COPD exacerbation: Current symptoms are most likely secondary to COPD exacerbation given significant rhonchi and wheezeing on exam. CHF exacerbation is on the differential but less likely given CXR with only mild pulmonary vascular congestion, no signs of volume overload on exam and lack of oxygen requirement. Pneumonia unlikely in the absence of fever, leukocytosis and infiltrates on CXR. -Continue Solumedrol 40 mg IV Q8H -Continue Azithromycin 500 mg PO QD x 1 dose, followed by 250 mg PO QD x 4 doses. --Continue TRC and nebs -Sputum Cx and BCx pending -Continue home inhalers Spiriva 1 puff QD and Symbicort 2 puffs BID. 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 Warfarin stopped in 2014 due to an episode of esophageal variceal bleeding. In sinus rhythm on admission. * Continue home sotalol 40 mg PO BID. #Chronic normocytic anemia: Hgb 11.1 on admission, baseline 8-9. * Continue home ferrous sulfate 325 mg PO BID. #Chronic pain: History of chronic pain secondary to arthritis and fibromyalgia. * Continue home morphine 15 mg Q3H PO PRN for pain scale 6-10, gabapentin 100 mg PO TID and Fentanyl 25 mcg patch. * Tylenol 650 mg PO Q6H PRN for pain scale 1-3. #Insomnia: * Continue home Ambien 5 mg PO QHS and Tizanidine 4 mg PO QHS. #Constipation: * Continue home Colace BID. Diet: Heart healthy diet DVT PPx: Lovenox and ALPs CODE: FULL Problem List: 1. CHF EXACERBATION 2. 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 fib not on anticoagulation due to previous GI bleed is being admitted on the floor for shortness of breath. Patient was seen and examined on the bedside and complaints of shortness of breath even while going to the restroom but has improved since yesterday. She was found to be afebrile, vitals stable and still wheezing on PE, but saturating to 93% on room air. She did had minor lower extremity edema and the chest x-ray showed mild pulmonary vascular congestion. We will continue to treat her for COPD exacerbation with Z-Paul, IV steroids 40 mg every eight hours and nebulization. Given her elevated proBNP she is also being kept on low-dose IV diuretics and cardiology on board who agrees with the plan. Off note her beta blockers was held today because of bradycardia.
--- NOTE | 2016-09-30 15:01 | PN- Cardiology ---
Subjective Subjective: The patient is slightly better today. Respiratory status slightly improved. Continued cough. He remains short of breath. Objective Vital Signs and I&Os Vital Signs Date Time Temp Pulse Resp B/P Pulse O2 O2 Flow FiO2 Ox Delivery Rate 09/30 0945 94 Room Air 09/30 0800 98.0 45 20 120/64 95 Room Air 09/30 0405 95 Room Air 09/30 0000 Room Air 09/29 2200 98.3 54 20 100/60 94 Room Air 09/29 1659 Room Air Room Air 09/29 1537 98.1 50 20 124/60 95 Intake & Output 09/30 1600 09/30 0800 09/30 0000 09/29 1600 09/29 0800 09/29 0000 Intake Total 420 180 100 400 Output Total 950 350 300 900 700 Balance -530 -170 -200 -500 -700 Intake, IV 20 Intake, Oral 400 180 100 400 Output, Urine 950 350 300 900 700 Patient 236 lb 237 lb 237 lb Weight Physical Exam: General Appearance Alert, Oriented X3, No Acute Distress, vital signs stable HEENT normal Cardiovascular Regular Rate, Normal S1, Normal S2, no audible murmurs Lungs Bilateral Wheezes and Rhonchi Scattered Throughout Lung [place] Abdomen Soft, No Tenderness, Positive Bowel Sounds Neurological No Gross Focal Deficits Noted Extremities No Clubbing, No Cyanosis, Bilateral Lower Extremities with Trace Pitting Edema on Chronic Venous Stasis Changes Current Medications: Current Medications Sig/Barbara Start time Last Medication Dose Route Stop Time Status Admin Acetaminophen 650 MG .STK-MED ONE 09/29 1510 DC PO 09/29 1511 Acetaminophen 650 MG Q6P PRN 09/28 2300 AC 09/30 PO 1008 Albuterol Sulfate 3 ML Q4P PRN 09/29 1715 AC 09/30 INH 0944 Azithromycin 250 MG DAILY 09/29 1000 AC 09/30 PO 10/02 1001 1004 Budesonide/ 2 PUF BID 09/28 2258 09/30 Formoterol Fumarate INH 1006 Ferrous Sulfate 325 MG BID 09/29 1000 AC 09/30 PO 1004 Furosemide 20 MG DAILY 09/29 1000 09/30 IV 1004 Gabapentin 200 MG TID 09/28 2259 AC 09/30 PO 1004 Guaifenesin 600 MG Q12 PRN 09/29 0115 AC PO Heparin Sodium 5,000 UNIT Q8 09/29 0600 AC 01/22 (Porcine) SC 1251 Melatonin 3 MG AT BEDTIME 09/29 2199 AC 09/29 PO 2202 Methylprednisolone 40 MG Q8 09/28 2359 AC 09/30 IV 1250 Oxycodone HCl 10 MG TID PRN 09/28 2330 AC 09/30 PO 1005 Sotalol HCl 40 MG BID 09/29 1000 AC 09/29 PO 220 Tiotropium [place] 1 PUF DAILY 09/29 1000 AC 09/30 INH 1005 Tizanidine HCl 4 MG QPM 09/29 2200 AC 09/29 PO 220 Wool Wax Alcohol 1 PAM BID 09/30 0045 AC 09/30 TOP 1007 Results Last 48 Hrs of Labs/Mics: Laboratory Tests 09/30/16 0717: Anion Gap 9, Estimated GFR 45 L, BUN/Creatinine Ratio 25.8 H, Phosphorus 4.0, Magnesium 2.1, CBC w Diff NO MAN DIFF REQ, RBC 3.07 L, MCV 98.2, MCH 33.0 H, RDW 14.2, MPV 8.5, Gran % 78.3 H, Lymphocytes % 16.2 L, Monocytes % 5.2, Eosinophils % 0.1, Basophils % 0.2, Absolute Granulocytes 4.2, Absolute Lymphocytes 0.9 L, Absolute Monocytes 0.3, Absolute Eosinophils 0, Absolute Basophils 0, PUBS MCHC 33.6 09/29/16 0635: Anion Gap 9, Estimated GFR 49 L, BUN/Creatinine Ratio 19.1, CBC w Diff NO MAN DIFF REQ, RBC 3.32 L, MCV 98.2, MCH 33.5 H, RDW 14.0, MPV 8.4, Gran % 82.4 H, Lymphocytes % 16.0 L, Monocytes % 1.0 L, Eosinophils % 0.1, Basophils % 0.5, Absolute Granulocytes 2.9, Absolute Lymphocytes 0.6 L, Absolute Monocytes 0 L, Absolute Eosinophils 0, Absolute Basophils 0, PUBS MCHC 34.1 09/28/16 2312: Lactic Acid Cancelled 09/28/16 2015: Lactic Acid 0.7 09/28/16 2015: Anion Gap 10, Estimated GFR 45 L, BUN/Creatinine Ratio 16.7, Glucose 99, Calcium 8.6, Total Bilirubin 0.5, AST 36, ALT 13, Alkaline Phosphatase 149 H, Troponin I < 0.01, Oto-V-Gokdejixrdx Pept 2020 H, Total Protein 6.8, Albumin 3.5, Globulin 3.3, Albumin/Globulin Ratio 1.1, PT 11.4, INR 1.09, CBC w Diff NO MAN DIFF REQ, RBC 3.54 L, MCV 98.1, MCH 32.8 H, RDW 14.6 H, MPV 8.1, Gran % 68.8, Lymphocytes % 19.3 L, Monocytes % 7.6, Eosinophils % 3.5, Basophils % 0.8 , Absolute Granulocytes 3.4, Absolute Lymphocytes 0.9 L, Absolute Monocytes 0.4 , Absolute Eosinophils 0.2, Absolute Basophils 0, PUBS MCHC 33.4 Assessment/Plan Assessment/Plan Assessment: 1. Acute, worsening, shortness of breath, likely multifactorial; exacerbation of COPD with likely superimposed acute on chronic heart failure 2. Heart failure, acute on chronic, with normal ejection fraction 3. Paroxysmal atrial fibrillation, not on anticoagulant therapy 4. Chronic anemia 5. Lower extremity edema with history of venous insufficiency 6. History of anxiety/depression Recommendations: -Continue as outlined by the medical team. -Monitor on telemetry, the patient was transiently bradycardic earlier today with a heart rate in the high 40s to low 50s and her morning sotalol dose was held. For now, I would continue her 40 mg of sotalol twice a day with monitoring of her rate and rhythm. -Aggressive pulmonary treatment as outlined -Diuresis with IV Lasix as outlined, adjusted dose as needed. The patient is approximately 2100 mL negative since admission so far. -Continue to monitor her intakes, outputs, daily weights -Follow-up labs to reassess BUN, creatinine, lites, magnesium, etc. in the morning -Follow-up ECG in the morning -For now, I do not see a reason to repeat the echocardiogram. Continue telemetry? Yes
[2016-09-30 16:47] VITALS: BP 122/76
[2016-09-30 22:00] VITALS: BP 110/60
--- NOTE | 2016-10-01 07:19 | PN- Housestaff ---
See Addendum Subjective Follow-up For: COPD EXCACERBATION Tele-Events Since Last Visit: Sinus bradycardia, heart rate 43-66 Subjective: Patient seen and examined this morning. She is lying comfortably in bed in no acute distress. Reports marked improvement in her shortness of breath, cough, denies any chest pain, palpitation, dizziness. Has been afebrile, heart rate between in 50s, currently satting in the 90s on room air.. Reports shortness of breath upon ambulation. Review of Systems Constitutional: Denies: chills, fever. Cardiovascular: Denies: chest pain, palpitations. Respiratory: Reports: cough. Denies: short of breath, sputum production. Gastrointestinal: Denies: abdominal pain, constipation, diarrhea, nausea, vomiting. Genitourinary: Denies: dysuria, frequency. Objective Last 24 Hrs of Vital Signs/I&O Vital Signs Date Time Temp Pulse Resp B/P Pulse O2 O2 Flow FiO2 Ox Delivery Rate 10/01 0812 97.6 50 18 140/62 95 Room Air 09/30 2200 98.5 53 20 110/60 95 Room Air 09/30 1935 95 Room Air 09/30 1647 97.8 46 18 122/76 96 09/30 0945 94 Room Air Intake & Output 10/01 1600 10/01 0800 10/01 0000 Intake Total 100 100 Output Total 900 Balance -800 100 Intake, Oral 100 100 Output, Urine 900 Patient 105.687 kg Weight Physical Exam General Appearance: Alert, Oriented X3, Cooperative, No Acute Distress Cardiovascular: Regular Rate, Normal S1, Normal S2, No Murmurs Lungs: Clear to Auscultation, Normal Air Movement Abdomen: Normal Bowel Sounds, Soft, No Tenderness Extremities: No Clubbing, No Cyanosis, bilateral lower extremity edema 1+ Current Medications: Current Medications Sig/Barbara Start time Last Medication Dose Route Stop Time Status Admin Acetaminophen 650 MG .STK-MED ONE 09/30 1001 DC PO 09/30 1002 Acetaminophen 650 MG Q6P PRN 09/28 2300 AC 09/30 PO 1008 Albuterol Sulfate 3 ML Q4P PRN 09/29 1715 AC 09/30 INH 1932 Azithromycin 250 MG DAILY 09/29 1000 AC 09/30 PO 10/02 1001 1004 Budesonide/ 2 PUF BID 09/28 2258 AC 09/30 Formoterol Fumarate INH 2155 Ferrous Sulfate 325 MG BID 09/29 1000 AC 09/30 PO 2154 Furosemide 20 MG DAILY 09/29 1000 AC 09/30 IV 1004 Gabapentin 200 MG TID 09/28 2259 AC 09/30 PO 2152 Guaifenesin 600 MG Q12 PRN 09/29 0115 AC PO Heparin Sodium 5,000 UNIT Q8 09/29 0600 AC 10/01 (Porcine) SC 0600 Melatonin 3 MG AT BEDTIME 09/29 2200 AC 09/30 PO 2152 Methylprednisolone 40 MG Q12 10/01 1000 AC IV Methylprednisolone 40 MG Q8 09/28 2359 DC 10/01 IV 0600 Oxycodone HCl 10 MG TID PRN 09/28 2330 AC 10/01 PO 0103 Sotalol HCl 40 MG BID 09/29 1000 AC 09/29 PO 2205 Tiotropium [place] 1 PUF DAILY 09/29 1000 AC 09/30 INH 1005 Tizanidine HCl 4 MG QPM 09/29 2200 AC 09/30 PO 215 Wool Wax Alcohol 1 PAM BID 09/30 0045 AC 09/30 TOP 2154 Last 24 Hrs of Lab/Jewel Results Last 24 Hrs of Labs/Mics: Laboratory Tests 10/01/16 0705: Anion Gap 10, Estimated GFR 45 L, BUN/Creatinine Ratio 34.2 H, CBC w Diff Pending, WBC Pending, RBC Pending, Hgb Pending, Hct Pending, MCV Pending, MCH Pending, RDW Pending, Plt Count Pending, MPV Pending, PUBS MCHC Pending Microbiology 09/30 1717 LOWER RESP: Respiratory Culture - COLB 09/30 1717 LOWER RESP: Gram Stain - COLB Assessment/Plan Assessment: 71 y/o F with PMHx of COPD, diastolic CHF and PAF not on anti-coagulation who presents with SOB x 3 days. #COPD exacerbation: Current symptoms are most likely secondary to COPD exacerbation given significant rhonchi and wheezeing on exam. CHF exacerbation is on the differential but less likely given CXR with only mild pulmonary vascular congestion, no signs of volume overload on exam and lack of oxygen requirement. Pneumonia unlikely in the absence of fever, leukocytosis and infiltrates on CXR. -Solumedrol switched to 60mg daily as per pulm recommendations. -Continue Azithromycin 500 mg PO to complete a five-day course.(pt allergic to penicillin)--Continue TRC and nebs -Sputum Cx and BCx no growth to date -Continue home inhalers Spiriva 1 puff QD and Symbicort 2 puffs BID. #Diastolic CHF: -Continue telemetry -Cardiology Dc Reyes MD is on board -Patient heart rate went to low 40s sotalol was held yesterday, as per cardiology we can continue with sotalol having her heart rate and rhythm monitored. -Continue intake and outputs and daily weight -Continue monitor CMP BUN/creatinine and electrolyte -Continue IV diuretics 20 mg IV daily #Paroxysmal atrial fibrillation: Rhythm controlled with sotalol. Warfarin stopped in 2014 due to an episode of esophageal variceal bleeding. In sinus rhythm on admission. * Continue home sotalol 40 mg PO BID. #Chronic normocytic anemia: Hgb 11.1 on admission, baseline 8-9. * Continue home ferrous sulfate 325 mg PO BID. #Chronic pain: History of chronic pain secondary to arthritis and fibromyalgia. * Continue home morphine 15 mg Q3H PO PRN for pain scale 6-10, gabapentin 100 mg PO TID and Fentanyl 25 mcg patch. * Tylenol 650 mg PO Q6H PRN for pain scale 1-3. #Insomnia: * Continue home Ambien 5 mg PO QHS and Tizanidine 4 mg PO QHS. #Constipation: * Continue home Colace BID. Diet: Heart healthy diet DVT PPx: Lovenox and ALPs CODE: FULL Problem List: 1. CHF EXACERBATION 2. Atrial fibrillation 3. Edema of lower extremity 4. Chronic anemia 5. Chronic pain syndrome 6. Bradycardia Pain Ratin Pain Location: arthritis and fibromyalgia Pain Goal: Remain pain free Pain Plan: morphine 15 mg Q3H PO PRN for pain scale 6-10, gabapentin 100 mg PO TID and Fentanyl 25 mcg patch. Tylenol 650 mg PO Q6H PRN for pain scale 1-3. Tomorrow's Labs & Rationales: None
[2016-10-01 08:12] VITALS: BP 140/62
[2016-10-01 08:37] LABS: ABSOLUTE BASOPHIL COUNT 0 /CUMM (0.0-0.2); ABSOLUTE EOSINOPHIL COUNT 0 /CUMM (0.0-0.7); ABSOLUTE GRANULOCYTE CT 4.1 /CUMM (1.4-6.5); ABSOLUTE LYMPH COUNT 0.8 /CUMM (1.2-3.4); ABSOLUTE MONOCYTE COUNT 0.1 /CUMM (0.10-0.60); BASOPHIL % 0.3 % (0.0-2.0); EOSINOPHIL % 0 % (0-5); GRANULOCYTE % 81.1 % (42.2-75.2); HEMATOCRIT 32.3 % (37-47); MEAN CORPUSCULAR HGB CONC 33.7 G/DL (33.0-37.0); MEAN PLATELET VOLUME 8.7 FL (7.4-10.4); PLATELET COUNT 182 /CUMM (130-400); RED BLOOD CELL CT 3.29 /CUMM (4.20-5.40); WHITE BLOOD CELL COUNT 5.1 /CUMM (4.8-10.8)
--- NOTE | 2016-10-01 09:56 | Patient Discharge Instructions ---
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 Please discuss with her lens generator to further discuss planning for a dobutamine stress test to exclude significant ischemia as a contributing factor to your current presentation with diastolic heart failure. Diet Continue normal diet: Yes Recommended Diet: Heart Healthy Activity Activity Self Limited: Yes Acute Coronary Syndrome Inclusion Criteria At DC or during hospital stay patient has or had the following: ACS DIAGNOSIS No Discharge Core Measures Meds if any: Prescribed or Continued at Discharge Meds if any: NOT Prescribed or Continued at Discharge Congestive Heart Failure Inclusion Criteria At DC or during hospital stay patient has or had the following: CHF DIAGNOSIS No Discharge Core Measures Meds if any: Prescribed or Continued at Discharge Meds if any: NOT Prescribed or Continued at Discharge Cerebrovascular accident Inclusion Criteria At DC or during hospital stay patient has or had the following: CVA/TIA Diagnosis No Discharge Core Measures Meds if any: Prescribed or Continued at Discharge Meds if any: NOT Prescribed or Continued at Discharge Venous thromboembolism Inclusion Criteria VTE Diagnosis No VTE Type NONE VTE Confirmed by (Test) NONE Discharge Core Measures - Per Current guidelines, there needs to be overlap - treatment for the first 5 days of Warfarin therapy. - If discharged on Warfarin prior to 5 days of - overlap therapy, the patient will need to be - assessed for post discharge needs including - *Post discharge parental anticoagulation - *Warfarin and/or parental anticoagulation education - *Follow up date to check INR post discharge At least 5 days overlap therapy as Inpatient No Meds if any: Prescribed or Continued at Discharge Note: Overlap Therapy is Warfarin and Anticoagulant Meds if any: NOT Prescribed or Continued at Discharge
--- NOTE | 2016-10-01 13:07 | Cons- Pulmonary ---
General Information and HPI Consulting Request Date of Consult: 10/01/16 Requested By: Med team History of Present Illness: This is a lady with history of chronic lung disease with mild COPD and asthmatic component with obstructive sleep apnea who has not seen me since 2011, is here with cough wheezing shortness of breath. Patient's past history is remarkable for chronic obstructive pulmonary disease, heart failure with normal ejection fraction, coronary disease, paroxysmal atrial fibrillation, hypertension, chronic venous insufficiency with stasis changes and leg ulcers, cirrhosis with esophageal varices and prior upper GI bleeding, and sleep apnea. The patient now presents to the hospital worsening shortness of breath. When the shortness of breath became prominent, even at rest, the patient came to the emergency him for further evaluation. The patient has had a cough, productive of clear sputum. She has also noted orthopnea, etc. She denies any other cardiac symptoms such as chest discomfort, etc. Review of Systems Constitutional: Denies: chills, fever. EENTM: Reports: no symptoms. Cardiovascular: Denies: chest pain. Respiratory: Reports: cough, short of breath, sputum production. GI: Denies: abdominal pain, diarrhea, nausea, vomiting. Genitourinary: Reports: no symptoms. Musculoskeletal: Reports: no symptoms. Skin: Reports: no symptoms. Neurological/Psychological: Reports: no symptoms. Hematologic/Endocrine: Reports: no symptoms. Immunologic/Allergic: Reports: no symptoms. Allergies/Medications Allergies: Coded Allergies: azithromycin (Mild, RASH, ITCHY 09/28/16) Penicillins (ITCHY RASH 09/28/16) Sulfa (Sulfonamide Antibiotics) (ITCHY RASH 09/28/16) adhesive tape (ITCHY RASH 09/28/16) amantadine (ITCHY RASH 09/28/16) cefadroxil (ITCHY RASH 09/28/16) codeine (ITCHY RASH 09/28/16) erythromycin base (ITCHY RASH 09/28/16) sulfadiazine (ITCHY RASH 09/28/16) latex (Intermediate, CONTACT DERMATITIS 04/15/16) Home Med List: Albuterol Sulfate (Proventil Hfa) 6.7 GM HFA.AER.AD 2 PUF INH Q6 PRN wheezinG (Reported) Clobetasol Propionate (Temovate) 15 GM OINT...G. 1 PAM TOP BID skin lesions Cyanocobalamin (Vitamin B-12) (Vitamin B-12) 500 MCG TABLET 2 TAB PO DAILY SUPPLEMENT (Reported) Ergocalciferol (Vitamin D2) (Vitamin D2) 50,000 UNIT CAPSULE 1 CAP PO Q30D SUPPLEMENT (Reported) Estrogens, Conjugated (Premarin) 30 GM CREAM.APPL 1 PAM TOP TID women health (Reported) Fentanyl 1 EACH PATCH.TD72 25 MCG TOP Q72H Pain Apply to right hip, follow up with your pain doctor Ferrous Sulfate 325 MG TABLET 1 TAB PO BID iron (Reported) Fluticasone/Salmeterol (Advair 250-50 Diskus) 1 EACH BLST.W.DEV 1 PUF INH BID lung (Reported) Furosemide 20 MG TABLET 1 TAB PO DAILY FLUID RETENTION Gabapentin (Neurontin) 100 MG CAPSULE 2 CAP PO TID pain (Reported) Hydroxyzine HCl (Unknown Strength) TABLET (Unknown Dose) PO AD PRN ITCHING ( Reported) Ipratropium/Albuterol Sulfate (Iprat-Albut 0.5-3(2.5) MG/3 Ml) 3 ML AMPUL.NEB 3 ML INH/MAGO Q6 PRN shortness of breath (Reported) Mineral Oil/Petrolatum,White (Eucerin Creme) 120 GM CREAM..G. 1 PAM TOP DAILY dry skin (Reported) Nystatin 15 GM CREAM..G. 1 PAM TOP BID antifungal (Reported) apply to affected area(s) Oxycodone HCl 10 MG TABLET 1 TAB PO TID PAIN (Reported) Pantoprazole Sodium (Protonix) 40 MG TABLET.DR 1 TAB PO DAILY stomach ( Reported) Petrolatum,White (Aquaphor) 396 GM OINT...G. 1 PAM TOP DAILY skin lesion apply on left leg Ramelteon (Rozerem) 8 MG TABLET 1 TAB PO QPM PRN SLEEP Take 30 minutes before bedtime for sleep. Rifaximin (Xifaxan) 550 MG TABLET 1 TAB PO BID diarrhea (Reported) Saccharomyces Boulardii (Florastor) 250 MG CAPSULE 250 MG PO BID probiotic ( Reported) Sennosides (Senna) 8.6 MG TABLET 2 TAB PO AT BEDTIME constipation (Reported) Sotalol HCl (Sotalol) 80 MG TABLET 0.5 TAB PO BID heart (Reported) Tiotropium [place] (Spiriva) 18 MCG CAP.W.DEV 1 CAP INH DAILY lung (Reported) Tizanidine HCl 4 MG TABLET 1 TAB PO QPM sleep (Reported) Zinc Oxide (Desitin) (Unknown Strength) CREAM..G. (Unknown Dose) TID skin ( Reported) Review of Systems Review of Systems Constitutional: Reports: see HPI. Past History Travel History Traveled to [place] past 21 day No Medical History Neurological: migraine EENT: NONE Cardiovascular: AFIB, CAD, chronic venous insuff, diastolic CHF, hypertension, hyperlipidemia, PVD, descending aortic artery aneurysm Respiratory: COPD, JOSSUE Gastrointestinal: GERD, hiatal hernia, HX OF GI BLEED HX OF SBO Hepatic: cirrhosis, SBP Renal: NONE Musculoskeletal: chronic back pain, disk herniation, fibromyalgia, osteoarthritis Psychiatric: insomnia Endocrine: diabetes, osteoporosis Blood Disorders: anemia Cancer(s): HX OF ORAL CANCER SOLUTION ADVISOR/Reproductive: HYSTERECTOMY Surgical History Surgical History: cholecystectomy, hysterectomy, knee replacement, cervical disc surgery ulnar surgery resection of GI carcinoma left heel spur surgery Family History Relations & Conditions If Any: FATHER (Throat cancer and smoker). Psychosocial History Where Do You Live? Home Who Do You Live With? Brother Lives Below her Services at Home: Nursing Primary Language: Occitan Smoking Status: Current Everyday Smoker ETOH Use: denies use Illicit Drug Use: denies illicit drug use Functional Ability ADLs Independent: dressing, eating, toileting, bathing. Ambulation: cane ECHO Results (as available) Date of last Echo 08/24/16 EF% 65 Exam & Diagnostic Data Last 24 Hrs of Vital Signs/I&O Vital Signs Date Time Temp Pulse Resp B/P Pulse O2 O2 Flow FiO2 Ox Delivery Rate 10/01 1051 97 Room Air Room Air 10/01 0812 97.6 50 18 140/62 95 Room Air 09/30 2200 98.5 53 20 110/60 95 Room Air 09/30 1935 95 Room Air 09/30 1647 97.8 46 18 122/76 96 Intake & Output 10/01 1600 10/01 0800 10/01 0000 Intake Total 100 100 Output Total 900 Balance -800 100 Intake, Oral 100 100 Output, Urine 900 Patient 233 lb Weight Last 48 Hrs of Labs/Jewel: Laboratory Tests 10/01/16 0705: Anion Gap 10, Estimated GFR 45 L, BUN/Creatinine Ratio 34.2 H, CBC w Diff NO MAN DIFF REQ, RBC 3.29 L, MCV 98.0, MCH 33.0 H, RDW 14.0, MPV 8.7, Gran % 81.1 H, Lymphocytes % 16.2 L, Monocytes % 2.4, Eosinophils % 0, Basophils % 0.3, Absolute Granulocytes 4.1, Absolute Lymphocytes 0.8 L, Absolute Monocytes 0.1 L, Absolute Eosinophils 0, Absolute Basophils 0, PUBS MCHC 33.7 09/30/16 0717: Anion Gap 9, Estimated GFR 45 L, BUN/Creatinine Ratio 25.8 H, Phosphorus 4.0, Magnesium 2.1, CBC w Diff NO MAN DIFF REQ, RBC 3.07 L, MCV 98.2, MCH 33.0 H, RDW 14.2, MPV 8.5, Gran % 78.3 H, Lymphocytes % 16.2 L, Monocytes % 5.2, Eosinophils % 0.1, Basophils % 0.2, Absolute Granulocytes 4.2, Absolute Lymphocytes 0.9 L, Absolute Monocytes 0.3, Absolute Eosinophils 0, Absolute Basophils 0, PUBS MCHC 33.6 Assessment/Plan Impression/Plan: SIGNIFICANT DATA Previous pulmonary function tests had shown mild obstructive lung disease with reduced DLCO. Echocardiogram done in August 2016 had shown significant diastolic heart disease with moderate pulmonary hypertension. Previous CT scan of the chest done in 2012 had shown a soft tissue hematoma in the chest wall fracture of the manubrium with rib fractures, small patchy groundglass opacity consistent with pulmonary contusion, palpitation aorta with prominent right paratracheal lymph nodes. Chest CT done in 2011 had shown nonspecific stable mediastinal lymphadenopathy in the right paratracheal area which had been stable for years. Lower extremity Doppler did not reveal any DVT, mild left being while lymphadenopathy. Chest x-ray showed persistent pulmonary vascular congestion. 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 Blood work reviewed. Creatinine is 1.2 with chronic kidney disease which is stable. Previous uric acid was elevated , Previous hepatitis viral panel and HIV was negative. Previous proBNP has been elevated. Chronic anemia with slightly reduced platelets. Previous ABG did not reveal hypercarbia. Previous immunoelectrophoresis had shown probable monoclonal component Physical Exam General Appearance Alert, Oriented X3, No Acute Distress HEENT Mucous Membr. moist/pink Cardiovascular Regular Rate, Normal S1, Normal S2 Lungs Bilateral Wheezes and Rhonchi Scattered Throughout Lung [place] Significant transmitted upper airway sounds noted, consistent with tracheobronchomalacia Abdomen Soft, No Tenderness, Positive Bowel Sounds Neurological No Gross Focal Deficits Noted Extremities No Clubbing, No Cyanosis, Bilateral Lower Extremities with Trace Edema And Chronic Venous Stasis Changes IMPRESSION This is a morbidly obese lady with JOSSUE non compliant (with recent wt loss) with significant ongoing smoking history, mild obstructive lung disease by pfts in 2011, previous history of mediastinal lymphadenopathy with biopsy suggestive of silica exposure 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 Patient has mild obstructive lung disease from previous PFTs but she continues to smoke and she has not had any PFTs in the recent past. * Previous history of silica exposure with stable mediastinal lymphadenopathy with previous biopsy suggestive of silica exposure with lymphadenopathy. No clinical evidence suggestive of significant worsening of silicosis. * Severe restrictive heart disease with normal ejection fraction with acute congestive diastolic heart failure * Paroxysmal atrial fibrillation not on anticoagulation therapy. * Chronic anemia with chronic kidney disease. * Chronic lower extremity venous insufficiency with recurrent cellulitis. * Anxiety and depression. * Significant obstructive sleep apnea in the past, noncompliant with her CPAP. ( However patient has weight loss in the recent past.) * Significant tracheobronchomalacia by clinical exam due to recurrent bronchitis * Chronic pain syndrome with probable fibromyalgia with previous vasculitis workup negative. Pt does have jossue and high risk for hypercarbia * Insomnia, constipation, depression and anxiety relatively stable. * Mild to moderate pulmonary hypertension related to obstructive sleep apnea and severe diastolic dysfunction. Patient does have stage III diastolic dysfunction with restrictive filling pattern in the recent echocardiogram. * Ongoing cigarette smoking with chronic lung disease. Patient is high risk for malignancy. * Previous history of significant aortic dilatation. RECOMMENDATION * Can switch to prednisone by mouth 60 mg and wean off * Continue intravenous diuresis as she is clearly improving. * Smoking cessation counseling was done. Can switch her antibiotic to by mouth Ceftin or Augmentin twice a day * Watch her renal function. * Can start benzonatate 100 mg by mouth twice a day for 5 days. * Continue her nebulizer therapy, albuterol as needed. * Continue Spiriva. * We will continue her Symbicort for now. * Sputum culture if she can give was any * When she stable. She would require a CT scan of the chest without IV contrast to evaluate her mediastinal lymphadenopathy and her aorta Consult Acknowledgment - Thank you for your consult request.
[2016-10-01 16:50] VITALS: BP 148/80
--- NOTE | 2016-10-01 18:19 | PN- Cardiology ---
Subjective Subjective: Continues to feel improved. Negative fluid balance of 3150 mL since admission with diuresis. Objective Vital Signs and I&Os Vital Signs Date Time Temp Pulse Resp B/P Pulse O2 O2 Flow FiO2 Ox Delivery Rate 10/01 1650 97.8 58 20 148/80 96 Room Air 10/01 1600 Room Air 10/01 1051 97 Room Air Room Air 10/01 0812 97.6 50 18 140/62 95 Room Air 09/30 2200 98.5 53 20 110/60 95 Room Air 09/30 1935 95 Room Air Intake & Output 10/01 1600 10/01 0800 10/01 0000 09/30 1600 09/30 0800 09/30 0000 Intake Total 600 100 100 420 180 100 Output Total 950 900 950 350 300 Balance -350 -800 100 -530 -170 -200 Intake, IV 20 Intake, Oral 600 100 100 400 180 100 Output, Urine 950 900 950 350 300 Patient 233 lb 236 lb Weight Physical Exam: Well-developed, morbidly obese elderly female in no acute distress. Vital signs: See above. Lungs: Decreased breath sounds bilaterally. Heart: S1, S2 with grade 1-2/6 systolic murmur. Extremities: 1+ right and trace left lower extremity edema. Current Medications: Current Medications Sig/Barbara Start time Last Medication Dose Route Stop Time Status Admin Acetaminophen 650 MG Q6P PRN 09/28 2300 AC 09/30 PO 1008 Albuterol Sulfate 3 ML Q4P PRN 09/29 1715 AC 10/01 INH 1055 Azithromycin 250 MG DAILY 09/29 1000 AC 10/01 PO 10/02 1001 1002 Benzonatate 100 MG BID 10/01 1424 AC 10/01 PO 1627 Budesonide/ 2 PUF BID 09/28 2258 AC 10/01 Formoterol Fumarate INH 1002 Cefuroxime Sodium 250 MG Q12 10/01 2200 CAN PO Ferrous Sulfate 325 MG BID 09/29 1000 AC 10/01 PO 1002 Furosemide 20 MG DAILY 09/29 1000 AC 10/01 IV 1002 Gabapentin 200 MG TID 09/28 2259 10/01 PO 1627 Guaifenesin 600 MG Q12 PRN 09/29 0115 AC PO Heparin Sodium 5,000 UNIT Q8 09/29 0600 AC 10/01 (Porcine) SC 1323 Melatonin 3 MG AT BEDTIME 09/29 2200 AC 09/30 PO 2152 Methylprednisolone 40 MG Q12 10/01 1000 DC 10/01 IV 1002 Methylprednisolone 40 MG Q8 09/28 2359 DC 10/01 IV 0600 Oxycodone HCl 10 MG TID PRN 09/28 2330 AC 10/01 PO 1629 Prednisone 60 MG DAILY 10/02 1000 AC PO Sotalol HCl 40 MG BID 09/29 1000 AC 09/29 PO 2205 Tiotropium [place] 1 PUF DAILY 09/29 1000 AC 10/01 INH 1002 Tizanidine HCl 4 MG QPM 09/29 2200 AC 09/30 PO 2152 Wool Wax Alcohol 1 PAM BID 09/30 0045 AC 10/01 TOP 1011 Results Last 48 Hrs of Labs/Mics: Laboratory Tests 10/01/16 0705: Anion Gap 10, Estimated GFR 45 L, BUN/Creatinine Ratio 34.2 H, CBC w Diff NO MAN DIFF REQ, RBC 3.29 L, MCV 98.0, MCH 33.0 H, RDW 14.0, MPV 8.7, Gran % 81.1 H, Lymphocytes % 16.2 L, Monocytes % 2.4, Eosinophils % 0, Basophils % 0.3, Absolute Granulocytes 4.1, Absolute Lymphocytes 0.8 L, Absolute Monocytes 0.1 L, Absolute Eosinophils 0, Absolute Basophils 0, PUBS MCHC 33.7 09/30/16 0717: Anion Gap 9, Estimated GFR 45 L, BUN/Creatinine Ratio 25.8 H, Phosphorus 4.0, Magnesium 2.1, CBC w Diff NO MAN DIFF REQ, RBC 3.07 L, MCV 98.2, MCH 33.0 H, RDW 14.2, MPV 8.5, Gran % 78.3 H, Lymphocytes % 16.2 L, Monocytes % 5.2, Eosinophils % 0.1, Basophils % 0.2, Absolute Granulocytes 4.2, Absolute Lymphocytes 0.9 L, Absolute Monocytes 0.3, Absolute Eosinophils 0, Absolute Basophils 0, PUBS MCHC 33.6 Recent Imaging Studies: CXR (09/28/2016) Persistent mild pulmonary vascular congestion, congestive heart failure. Assessment/Plan Assessment/Plan Ms. 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, obstructive sleep apnea, hypertension, dyslipidemia, diabetes mellitus, dilatation of the ascending aorta, chest pain syndrome (normal cardiac catheterization January 2007; negative stress test February 2009 and December 2011), paroxysmal atrial fibrillation on anti-arrhythmic therapy with sotalol without anticoagulation (vide infra), left ventricular hypertrophy and previous diastolic heart failure, as well as, chronic bilateral lower extremity edema (right greater than left) with recurrent cellulitis who presented with the sudden onset of severe shortness of breath and who was found to have evidence of heart failure on her CXR. Her heart failure was likely secondary to her left ventricular hypertrophy and diastolic dysfunction and was also likely, in part, precipitated by an exacerbation of her COPD. She is feeling improved, but her BUN has significantly increased today and would recommend holding this PMs furosemide and reassessing the need for further IV diuresis in the morning after physical examination, laboratory work, etc. The issue of anticoagulation was discussed with her installation superintendent during her last hospitalization and he felt that she was not a good candidate for anticoagulation given her GI issues. Would continue with sotalol 40 mg twice daily with close attention to her heart rate. She is aware of the fact that she may require a permanent pacemaker if we document symptomatic bradycardia. She wore a 24-hour Holter monitor at the time of discharge from the last hospitalization which is not presently available, but which will be placed in her chart with further recommendations. We will also plan for a dobutamine stress test to exclude significant ischemia as a contributing factor to her presentation with diastolic heart failure, as well as, her NSVT, etc. Agree with pulmonary recommendation for follow-up chest CT scan when present situation has improved. Repeat ECG. Continue DVT prophylaxis. Continue telemetry? Yes (Intermittent bradycardia.)
[2016-10-02 00:19] VITALS: BP 142/70
--- NOTE | 2016-10-02 07:43 | PN- Housestaff ---
TOMAS HOLLAND,[facility] 10/02/16 0743: Subjective Follow-up For: COPD EXCACERBATION Tele-Events Since Last Visit: Sinus bradycardia, heart rate between 39-49 Subjective: Seen and examined this morning. She was lying comfortably in bed in no acute distress. Reports marked improvement in her shortness of breath. She was able to ambulate yesterday with PT and reported improvement in her shortness of breath, will reassess today. Otherwise he remains afebrile, vitals, except for her heart rate going ignacio which sotalol has been held. Review of Systems Constitutional: Denies: chills, fever. Cardiovascular: Denies: chest pain, palpitations. Respiratory: Reports: cough, short of breath. Denies: sputum production. Gastrointestinal: Denies: abdominal pain, nausea, vomiting. Genitourinary: Denies: dysuria, frequency. Objective Last 24 Hrs of Vital Signs/I&O Vital Signs Date Time Temp Pulse Resp B/P Pulse O2 O2 Flow FiO2 Ox Delivery Rate 10/02 0800 97.9 45 20 128/70 95 Room Air 10/02 0019 98.2 42 20 142/70 95 Room Air 10/02 0000 Room Air 10/01 2238 94 Room Air 10/01 1650 97.8 58 20 148/80 96 Room Air 10/01 1600 Room Air 10/01 1051 97 Room Air Room Air Intake & Output 10/02 1600 10/02 0800 10/02 0000 Intake Total 400 Output Total 600 1200 Balance -600 -800 Intake, Oral 400 Number 0 Bowel Movements Output, Urine 600 1200 Patient 106.594 kg Weight Physical Exam General Appearance: Alert, Oriented X3, Cooperative, No Acute Distress Cardiovascular: Regular Rate, Normal S1, Normal S2, No Murmurs Lungs: Clear to Auscultation, Normal Air Movement Abdomen: Normal Bowel Sounds, Soft, No Tenderness Extremities: No Clubbing, No Cyanosis, lle b/l edema 1+ Current Medications: Current Medications Sig/Barbara Start time Last Medication Dose Route Stop Time Status Admin Acetaminophen 650 MG Q6P PRN 09/28 2300 AC 09/30 PO 1008 Albuterol Sulfate 3 ML Q4P PRN 09/29 1715 AC 10/01 INH 1055 Azithromycin 250 MG DAILY 09/29 1000 AC 10/02 PO 10/02 1001 0918 Benzonatate 100 MG BID 10/01 1424 AC 10/02 PO 0919 Budesonide/ 2 PUF BID 09/28 2258 AC 10/02 Formoterol Fumarate INH 0919 Cefuroxime Sodium 250 MG Q12 10/01 2200 CAN PO Ferrous Sulfate 325 MG BID 09/29 1000 AC 10/02 PO 0919 Furosemide 20 MG DAILY 09/29 1000 AC 10/01 IV 1002 Gabapentin 200 MG TID 09/28 2259 AC 10/02 PO 0919 Guaifenesin 600 MG Q12 PRN 09/29 0115 AC PO Heparin Sodium 5,000 UNIT Q8 09/29 0600 AC 10/02 (Porcine) SC 0632 Melatonin 3 MG AT BEDTIME 09/29 2200 AC 10/01 PO 2122 Methylprednisolone 40 MG Q12 10/01 1000 DC 10/01 IV 1002 Oxycodone HCl 10 MG TID PRN 09/28 2330 AC 10/02 PO 0305 Prednisone 60 MG DAILY 10/02 1000 AC 10/02 PO 0919 Sotalol HCl 40 MG BID 09/29 1000 AC 09/29 PO 2205 Tiotropium [place] 1 PUF DAILY 09/29 1000 AC 10/02 INH 0918 Tizanidine HCl 4 MG QPM 09/29 2200 AC 10/01 PO 2100 Wool Wax Alcohol 1 PAM BID 09/30 0045 AC 10/02 TOP 0920 Assessment/Plan Assessment: 71 y/o F with PMHx of COPD, diastolic CHF and PAF not on anti-coagulation who presents with SOB x 3 days. #COPD exacerbation: Current symptoms are most likely secondary to COPD exacerbation given significant rhonchi and wheezeing on exam. CHF exacerbation is on the differential but less likely given CXR with only mild pulmonary vascular congestion, no signs of volume overload on exam and lack of oxygen requirement. Pneumonia unlikely in the absence of fever, leukocytosis and infiltrates on CXR. -Solumedrol switched to 60mg daily as per pulm recommendations. -Continue Azithromycin 500 mg PO to complete a five-day course.(pt allergic to penicillin)--Continue TRC and nebs -Sputum Cx and BCx no growth to date -Continue home inhalers Spiriva 1 puff QD and Symbicort 2 puffs BID. #Diastolic CHF: -Continue telemetry -Cardiology Dc Reyes MD is on board -Patient heart rate went to low 40s sotalol was held yesterday, as per cardiology we can continue with sotalol having her heart rate and rhythm monitored. -Continue intake and outputs and daily weight -Continue monitor CMP BUN/creatinine and electrolyte -Continue IV diuretics 20 mg IV daily #Paroxysmal atrial fibrillation: Rhythm controlled with sotalol. Warfarin stopped in 2014 due to an episode of esophageal variceal bleeding. In sinus rhythm on admission. * Continue home sotalol 40 mg PO BID(dose held yesterday and this morning as patient heart rate was going below, will consult multimedia author for parameters when to hold sotalol and if we can have an alternative for sotalol instead). #Chronic normocytic anemia: Hgb 11.1 on admission, baseline 8-9. * Continue home ferrous sulfate 325 mg PO BID. #Chronic pain: History of chronic pain secondary to arthritis and fibromyalgia. * Continue home morphine 15 mg Q3H PO PRN for pain scale 6-10, gabapentin 100 mg PO TID and Fentanyl 25 mcg patch. * Tylenol 650 mg PO Q6H PRN for pain scale 1-3. #Insomnia: * Continue home Ambien 5 mg PO QHS and Tizanidine 4 mg PO QHS. #Constipation: * Continue home Colace BID. Diet: Heart healthy diet DVT PPx: Lovenox and ALPs CODE: FULL Problem List: 1. COPD exacerbation 2. CHF exacerbation 3. Chronic venous insufficiency 4. Bradycardia 5. Paroxysmal atrial fibrillation Pain Ratin Pain Location: none Pain Goal: Remain pain free Pain Plan: Mild pain pathway Tomorrow's Labs & Rationales: BEP for lites monitoring MANUELA BRANDON MD 10/02/16 4124: Attending Review Statement Attending Statement Attending MD Statement: examined this patient, discuss w/resident/PA/SQL REPORT DEVELOPER, agreed w/resident/PA/SQL REPORT DEVELOPER, reviewed EMR data (avail), discussed with nursing, discussed with case mgmt, amended to note Attending Assessment/Plan: The patient was seen and discussed with house staff. Agree with plan of care as outlined.
[2016-10-02 08:00] VITALS: BP 128/70
[2016-10-02 11:09] LABS: ABSOLUTE BASOPHIL COUNT 0 /CUMM (0.0-0.2); ABSOLUTE EOSINOPHIL COUNT 0 /CUMM (0.0-0.7); ABSOLUTE GRANULOCYTE CT 4.8 /CUMM (1.4-6.5); ABSOLUTE LYMPH COUNT 1.8 /CUMM (1.2-3.4); ABSOLUTE MONOCYTE COUNT 0.4 /CUMM (0.10-0.60); BASOPHIL % 0.2 % (0.0-2.0); EOSINOPHIL % 0 % (0-5); GRANULOCYTE % 69.1 % (42.2-75.2); HEMATOCRIT 35.3 % (37-47); MEAN CORPUSCULAR HGB 32.9 PG (27.0-31.0); MEAN CORPUSCULAR HGB CONC 33.4 G/DL (33.0-37.0); MEAN CORPUSCULAR VOLUME 98.7 FL (81.0-99.0); MEAN PLATELET VOLUME 8.2 FL (7.4-10.4); PLATELET COUNT 184 /CUMM (130-400); RBC DISTRIBUTION WIDTH 14.2 % (11.5-14.5); RED BLOOD CELL CT 3.58 /CUMM (4.20-5.40); WHITE BLOOD CELL COUNT 6.9 /CUMM (4.8-10.8)
--- NOTE | 2016-10-02 11:16 | PN- Pulmonary ---
Subjective HPI/Critical Care Issues: Seen and examined this morning. She was lying comfortably in bed in no acute distress. Reports marked improvement in her shortness of breath. She was able to ambulate yesterday with PT and reported improvement in her shortness of breath, will reassess today. Otherwise she remains afebrile, vitals, except for her heart rate going ignacio which sotalol has been held. Review of Systems Constitutional: Denies: chills, fever. Cardiovascular: Denies: chest pain, palpitations. Respiratory: Reports: cough, short of breath. Denies: sputum production. Gastrointestinal: Denies: abdominal pain, nausea, vomiting. Genitourinary: Denies: dysuria, frequency. Objective Current Medications: Current Medications Sig/Barbara Start time Last Medication Dose Route Stop Time Status Admin Acetaminophen 650 MG Q6P PRN 09/28 2300 AC 09/30 PO 1008 Albuterol Sulfate 3 ML Q4P PRN 09/29 1715 AC 10/01 INH 1055 Azithromycin 250 MG DAILY 09/29 1000 DC 10/02 PO 10/02 1001 0918 Benzonatate 100 MG BID 10/01 1424 AC 10/02 PO 0919 Budesonide/ 2 PUF BID 09/28 2258 AC 10/02 Formoterol Fumarate INH 0919 Cefuroxime Sodium 250 MG Q12 10/01 2200 CAN PO Ferrous Sulfate 325 MG BID 09/29 1000 AC 10/02 PO 0919 Furosemide 20 MG DAILY 09/29 1000 AC 10/01 IV 1002 Gabapentin 200 MG TID 09/28 2259 AC 10/02 PO 0919 Guaifenesin 600 MG Q12 PRN 09/29 0115 AC PO Heparin Sodium 5,000 UNIT Q8 09/29 0600 AC 10/02 (Porcine) SC 0632 Melatonin 3 MG AT BEDTIME 09/29 2200 AC 10/01 PO 2122 Methylprednisolone 40 MG Q12 10/01 1000 DC 10/01 IV 1002 Oxycodone HCl 10 MG TID PRN 09/28 2330 AC 10/02 PO 0305 Prednisone 60 MG DAILY 10/02 1000 AC 10/02 PO 0919 Sotalol HCl 40 MG BID 09/29 1000 AC 09/29 PO 2205 Tiotropium [place] 1 PUF DAILY 09/29 1000 AC 10/02 INH 0918 Tizanidine HCl 4 MG QPM 09/29 2200 AC 10/01 PO 2100 Wool Wax Alcohol 1 PAM BID 09/30 0045 AC 10/02 TOP 0920 Vital Signs & I&O Last 24 Hrs of Vitals and I&O: Vital Signs Date Time Temp Pulse Resp B/P Pulse O2 O2 Flow FiO2 Ox Delivery Rate 10/02 0800 97.9 45 20 128/70 95 Room Air 10/02 0019 98.2 42 20 142/70 95 Room Air 10/02 0000 Room Air 10/01 2238 94 Room Air 10/01 1650 97.8 58 20 148/80 96 Room Air 10/01 1600 Room Air Intake & Output 10/02 1600 10/02 0800 10/02 0000 Intake Total 400 Output Total 600 1200 Balance -600 -800 Intake, Oral 400 Number 0 Bowel Movements Output, Urine 600 1200 Patient 235 lb Weight Laboratory Tests 10/02 10/01 0955 0705 Chemistry Sodium (137 - 145 mmol/L) Pending 138 Potassium (3.5 - 5.1 mmol/L) Pending 4.7 Chloride (98 - 107 mmol/L) Pending 104 Carbon Dioxide (22 - 30 mmol/L) Pending 25 Anion Gap (5 - 16) Pending 10 BUN (7 - 17 mg/dL) Pending 41 H Creatinine (0.5 - 1.0 mg/dL) Pending 1.2 H Estimated GFR (>60 ml/min) 45 L BUN/Creatinine Ratio (7 - 25 %) Pending 34.2 H Hematology CBC w Diff NO MAN DIFF REQ NO MAN DIFF REQ WBC (4.8 - 10.8 /CUMM) 6.9 5.1 RBC (4.20 - 5.40 /CUMM) 3.58 L 3.29 L Hgb (12.0 - 16.0 G/DL) 11.8 L 10.9 L Hct (37 - 47 %) 35.3 L 32.3 L MCV (81.0 - 99.0 FL) 98.7 98.0 MCH (27.0 - 31.0 PG) 32.9 H 33.0 H RDW (11.5 - 14.5 %) 14.2 14.0 Plt Count (130 - 400 /CUMM) 184 182 MPV (7.4 - 10.4 FL) 8.2 8.7 Gran % (42.2 - 75.2 %) 69.1 81.1 H Lymphocytes % (20.5 - 51.1 %) 25.6 16.2 L Monocytes % (1.7 - 9.3 %) 5.1 2.4 Eosinophils % (0 - 5 %) 0 0 Basophils % (0.0 - 2.0 %) 0.2 0.3 Absolute Granulocytes (1.4 - 6.5 /CUMM) 4.8 4.1 Absolute Lymphocytes (1.2 - 3.4 /CUMM) 1.8 0.8 L Absolute Monocytes (0.10 - 0.60 /CUMM) 0.4 0.1 L Absolute Eosinophils (0.0 - 0.7 /CUMM) 0 0 Absolute Basophils (0.0 - 0.2 /CUMM) 0 0 PUBS MCHC (33.0 - 37.0 G/DL) 33.4 33.7 Microbiology Date/Time Procedure - Status Source Growth 09/30 1717 Respiratory Culture - CAN LOWER RESP Cancelled: SPECIMEN NOT RECEIVED IN LABORATORY 09/30 1717 Gram Stain - CAN LOWER RESP Cancelled: SPECIMEN NOT RECEIVED IN LABORATORY Impression/Plan Impression/Plan Impression/Plan: SIGNIFICANT DATA Previous pulmonary function tests had shown mild obstructive lung disease with reduced DLCO. Echocardiogram done in August 2016 had shown significant diastolic heart disease with moderate pulmonary hypertension. Previous CT scan of the chest done in 2012 had shown a soft tissue hematoma in the chest wall fracture of the manubrium with rib fractures, small patchy groundglass opacity consistent with pulmonary contusion, palpitation aorta with prominent right paratracheal lymph nodes. Chest CT done in 2011 had shown nonspecific stable mediastinal lymphadenopathy in the right paratracheal area which had been stable for years. Lower extremity Doppler did not reveal any DVT, mild left being while lymphadenopathy. Chest x-ray showed persistent pulmonary vascular congestion. 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 Blood work reviewed. Creatinine is 1.2 with chronic kidney disease which is stable. Previous uric acid was elevated , Previous hepatitis viral panel and HIV was negative. Previous proBNP has been elevated. Chronic anemia with slightly reduced platelets. Previous ABG did not reveal hypercarbia. Previous immunoelectrophoresis had shown probable monoclonal component Physical Exam General Appearance Alert, Oriented X3, No Acute Distress HEENT Mucous Membr. moist/pink Cardiovascular Regular Rate, Normal S1, Normal S2 Lungs Bilateral Wheezes and Rhonchi Scattered Throughout Lung [place] Significant transmitted upper airway sounds noted, consistent with tracheobronchomalacia Abdomen Soft, No Tenderness, Positive Bowel Sounds Neurological No Gross Focal Deficits Noted Extremities No Clubbing, No Cyanosis, Bilateral Lower Extremities with Trace Edema And Chronic Venous Stasis Changes IMPRESSION This is a morbidly obese lady with JOSSUE non compliant (with recent wt loss) with significant ongoing smoking history, mild obstructive lung disease by pfts in 2011, previous history of mediastinal lymphadenopathy with biopsy suggestive of silica exposure may have mild silicosis, chronic lung disease, severe diastolic dysfunction with pulmonary hypertension secondary to diastolic dysfunction, chronic lower extremity edema with vascular insufficiency with recurrent cellulitis, dilated aorta, now comes here with Cough wheezing shortness of breath in a lady with obstructive lung disease with wheezing consistent with * Resolving Acute COPD exacerbation. Patient has mild obstructive lung disease from previous PFTs but she continues to smoke and she has not had any PFTs in the recent past. * Previous history of silica exposure with stable mediastinal lymphadenopathy with previous biopsy suggestive of silica exposure with lymphadenopathy. No clinical evidence suggestive of significant worsening of silicosis. * Severe restrictive heart disease with normal ejection fraction with improving acute congestive diastolic heart failure * Paroxysmal atrial fibrillation not on anticoagulation therapy. * Chronic anemia with chronic kidney disease. * Chronic lower extremity venous insufficiency with recurrent cellulitis. * Anxiety and depression. * Significant obstructive sleep apnea in the past, noncompliant with her CPAP. ( However patient has weight loss in the recent past.) * Significant tracheobronchomalacia by clinical exam due to recurrent bronchitis * Chronic pain syndrome with probable fibromyalgia with previous vasculitis workup negative. Pt does have jossue and high risk for hypercarbia * Insomnia, constipation, depression and anxiety relatively stable. * Mild to moderate pulmonary hypertension related to obstructive sleep apnea and severe diastolic dysfunction. Patient does have stage III diastolic dysfunction with restrictive filling pattern in the recent echocardiogram. * Ongoing cigarette smoking with chronic lung disease. Patient is high risk for malignancy. * Previous history of significant aortic dilatation. RECOMMENDATION * rednisone by mouth 60 mg and wean off in twelve days * Continue diuresis as she is clearly improving. Watch renal function * Smoking cessation counseling was done. Po abx * Watch her renal function. * Benzonatate 100 mg by mouth twice a day for 5 days. * Continue her nebulizer therapy, albuterol as needed. * Continue Spiriva. * Continue her Symbicort for now. * She would require a CT scan of the chest without IV contrast to evaluate her mediastinal lymphadenopathy and her aorta if able
[2016-10-02] MEDS ORDERED: PREDNISONE10 M2 PO (13:31)
[2016-10-02 15:40] VITALS: BP 122/68
[2016-10-02 22:16] VITALS: BP 116/52
[2016-10-03 00:17] VITALS: BP 110/60
--- NOTE | 2016-10-03 07:54 | PN- Housestaff ---
TOMAS HOLLAND,[facility] 10/03/16 0754: Subjective Follow-up For: COPD EXCACERBATION Tele-Events Since Last Visit: Bradycardia to 39, otherwise sinus rhythm alternating with sinus bradycardia Subjective: Patient seen and examined this morning. She was lying in bed comfortably in no acute distress. She denies any shortness of breath, cough, dizziness, chest pain, headache, palpitation. She remains afebrile, other vitals within normal limits. She has been ambulating without any shortness of breath, satting in high 90s on room air. Her kidney function has improved. She is to be discharged today and advised to follow-up with pulmonology and cardiology in 1 week. Review of Systems Constitutional: Denies: chills, fever. Cardiovascular: Denies: chest pain, orthopena, palpitations. Respiratory: Denies: cough, short of breath, sputum production. Gastrointestinal: Denies: abdominal pain, constipation, diarrhea, nausea, vomiting. Genitourinary: Denies: dysuria, frequency. Objective Last 24 Hrs of Vital Signs/I&O Vital Signs Date Time Temp Pulse Resp B/P Pulse O2 O2 Flow FiO2 Ox Delivery Rate 10/03 0843 98.6 49 20 120/60 96 Room Air 10/03 0017 98.0 48 20 110/60 96 Room Air 10/03 0000 Room Air 10/02 2216 54 116/52 10/02 2115 96 Room Air 10/02 1540 98.2 80 20 122/68 98 10/02 1136 98 Room Air Room Air Intake & Output 10/03 1600 10/03 0800 10/03 0000 Intake Total 520 Output Total 750 950 Balance -750 -430 Intake, Oral 520 Output, Urine 750 950 Patient 104.78 kg Weight Physical Exam General Appearance: Alert, Oriented X3, Cooperative, No Acute Distress Cardiovascular: Regular Rate, Normal S1, Normal S2 Lungs: Clear to Auscultation, Normal Air Movement Abdomen: Normal Bowel Sounds, Soft, No Tenderness Extremities: No Clubbing, No Cyanosis, bilateral lower estimate the edema, much improved from before ( her it) Current Medications: Current Medications Sig/Barbara Start time Last Medication Dose Route Stop Time Status Admin Acetaminophen 650 MG Q6P PRN 09/28 2300 AC 09/30 PO 1008 Albuterol Sulfate 3 ML Q4P PRN 09/29 1715 AC 10/02 INH 2115 Benzonatate 100 MG BID 10/01 1424 AC 10/03 PO 0925 Budesonide/ 2 PUF BID 09/28 2258 AC 10/03 Formoterol Fumarate INH 0926 Fentanyl Citrate 25 MCG Q72H 10/02 2100 AC 10/02 TOP 2109 Ferrous Sulfate 325 MG BID 09/29 1000 AC 10/03 PO 0925 Furosemide 20 MG DAILY 09/29 1000 AC 10/03 IV 0926 Gabapentin 200 MG TID 09/28 2259 AC 10/03 PO 0925 Guaifenesin 600 MG Q12 PRN 09/29 0115 AC PO Heparin Sodium 5,000 UNIT Q8 09/29 0600 AC 10/03 (Porcine) SC 0658 Melatonin 3 MG AT BEDTIME 09/29 2200 AC 10/02 PO 2329 Oxycodone HCl 10 MG TID PRN 09/28 2330 AC 10/03 PO 0658 Polyethylene Glycol 17 GM DAILY 10/02 1226 AC 10/03 PO 0925 Prednisone 60 MG DAILY 10/02 1000 AC 10/03 PO 0925 Senna/Docusate Sodium 1 TAB BID PRN 10/02 1230 AC 10/03 PO 0926 Sotalol HCl 40 MG BID 09/29 1000 AC 10/03 PO 0925 Tiotropium [place] 1 PUF DAILY 09/29 1000 AC 10/03 INH 0926 Tizanidine HCl 4 MG QPM 09/29 2200 AC 10/02 PO 2211 Wool Wax Alcohol 1 PAM BID 09/30 0045 AC 10/03 TOP 0926 Last 24 Hrs of Lab/Jewel Results Last 24 Hrs of Labs/Mics: Laboratory Tests 10/03/16 0630: Anion Gap 7, Estimated GFR 49 L, BUN/Creatinine Ratio 35.5 H Assessment/Plan Assessment: 71 y/o F with PMHx of COPD, diastolic CHF and PAF not on anti-coagulation who presents with SOB x 3 days. #COPD exacerbation: Current symptoms are most likely secondary to COPD exacerbation given significant rhonchi and wheezeing on exam. CHF exacerbation is on the differential but less likely given CXR with only mild pulmonary vascular congestion, no signs of volume overload on exam and lack of oxygen requirement. Pneumonia unlikely in the absence of fever, leukocytosis and infiltrates on CXR. -Solumedrol switched to 60mg daily as per pulm recommendations. -Continue Azithromycin 500 mg PO to complete a five-day course.(pt allergic to penicillin)--Continue TRC and nebs -Sputum Cx and BCx no growth to date -Continue home inhalers Spiriva 1 puff QD and Symbicort 2 puffs BID. -Patient to be discharged today, advised to follow up with pulmonology and cardiology in 1 week. #Diastolic CHF: -Continue telemetry, IV diuretics 20 mg IV daily>> transition to oral, and patient advised to follow-up with primary care physician, get the repeat BEP in 1 week to ensure normal kidney function. Continue intake and outputs and daily weight Kidney function has improved, creatinine as of today 1.1, BUN 39 Cardiology Dc Reyes MD is on board #Paroxysmal atrial fibrillation: Rhythm controlled with sotalol. Warfarin stopped in 2014 due to an episode of esophageal variceal bleeding. In sinus rhythm on admission. * Continue home sotalol 40 mg PO BID along with continuous heart rate and rhythm monitoring. #Chronic normocytic anemia: Hgb 11.1 on admission, baseline 8-9. * Continue home ferrous sulfate 325 mg PO BID. #Chronic pain: History of chronic pain secondary to arthritis and fibromyalgia. * Continue home morphine 15 mg Q3H PO PRN for pain scale 6-10, gabapentin 100 mg PO TID and Fentanyl 25 mcg patch. * Tylenol 650 mg PO Q6H PRN for pain scale 1-3. #Insomnia: * Continue home Ambien 5 mg PO QHS and Tizanidine 4 mg PO QHS. #Constipation: * Continue home Colace BID. Diet: Heart healthy diet DVT PPx: Lovenox and ALPs CODE: FULL Problem List: 1. COPD exacerbation 2. CHF exacerbation 3. Chronic venous insufficiency Pain Ratin Pain Location: none Pain Goal: Remain pain free Pain Plan: Mild pain pathway Tomorrow's Labs & Rationales: None patient to be discharged Discharge Plan Discharge Disposition: home Stable for Discharge? Yes Anticipated Discharge (Day): today If Discharged Today/In 24 Hrs: DC summary done, CMR done MANUELA BRANDON MD 10/03/162041: Attending Review Statement Attending Statement Attending Statement: examined this patient, discuss w/resident/PA/SOLE CUTTER, agreed w/resident/PA/SOLE CUTTER, reviewed EMR data (avail), discussed with nursing, discussed with case mgmt, amended to note Attending Assessment/Plan: The patient was seen and discussed with house staff. Agree with plan of care as outlined. OK to discharge to home today.
[2016-10-03 08:43] VITALS: BP 120/60
--- NOTE | 2016-10-03 10:18 | Discharge Summary ---
Visit Information Visit Dates Admission Date: 09/28/16 Discharge Date: 10/03/16 Hospital Course Course Attending Physician: MANUELA BRANDON MD Primary Care Physician: JOHANNA CHRISTIANSON MD Hospital Course: 71 y/o F with PMHx of COPD, diastolic CHF and PAF not on anti-coagulation who presented with SOB for 3 days, likely secondary to COPD exacerbation given significant rhonchi and wheezeing on exam. No fever fever, leukocytosis and infiltrates on CXR. CHF exacerbation was on the differential as well as patient has chronic venous insufficiency but has lately noticed increased edema bilaterally in her lower extremities. She was started on Solu-Medrol, azithromycin, TRC/nebs, newsome culture no growth to date, she was started on IV Lasix 20 mg along with close monitoring of kidney function initially her creatinine was 1.2 which came down to 1.1 upon discharge, advised to get repeat BP in 1 week to ensure creatinine stability., she was advised to follow-up with PCP, modeling director and wig comber in 1 week upon discharge. She was continued on sotalol 40 mg by mouth twice a day for heart rhythm and rate control. Rhythm controlled with sotalol. She was continued on home dose of morphine 15 mg Q3H PO PRN for pain scale 6-10, gabapentin 100 mg PO TID and Fentanyl 25 mcg patch history of fibromyalgia and arthralgias. She has been eating a heart healthy diet, and receiving Lovenox for DVT prophylaxis, remained full code throughout her hospital stay. Complications: None Allergies: Coded Allergies: azithromycin (Mild, RASH, ITCHY 09/28/16) Penicillins (ITCHY RASH 09/28/16) Sulfa (Sulfonamide Antibiotics) (ITCHY RASH 09/28/16) adhesive tape (ITCHY RASH 09/28/16) amantadine (ITCHY RASH 09/28/16) cefadroxil (ITCHY RASH 09/28/16) codeine (ITCHY RASH 09/28/16) erythromycin base (ITCHY RASH 09/28/16) sulfadiazine (ITCHY RASH 09/28/16) latex (Intermediate, CONTACT DERMATITIS 04/15/16) Disposition Summary Disposition Principal Diagnosis: COPD exacerbation Additional Diagnosis: CHF exacerbation Discharge Disposition: home or self care Discharge Instructions General Discharge Information Code Status: Full Code Patient's Diet: Heart healthy Patient's Activity: As tolerated Follow-Up Instructions/Appts: Patient advised to follow-up with pre-primary care physician, chief medical director, modeling director in 1 week Medications at Discharge Discharge Medications: Continue taking these medications: Albuterol Sulfate (Proventil Hfa) 6.7 GM HFA.AER.AD 2 Puff Inhale through mouth EVERY SIX HOURS as needed for wheezinG Comments: Last Taken: 10/02/16 Time: 915 PM Ferrous Sulfate (Ferrous Sulfate) 325 MG TABLET 1 Tablet ORAL TWICE DAILY Comments: Last Taken: 10/03/16 Time: 925 AM Fluticasone/Salmeterol (Advair 250-50 Diskus) 1 EACH BLST.W.DEV 1 Puff Inhale through mouth TWICE DAILY Comments: NOT TAKEN IN HOSPITAL Gabapentin (Neurontin) 100 MG CAPSULE 2 Capsule ORAL THREE TIMES DAILY Comments: Last Taken: 10/03/16 Time: 09AM. Ipratropium/Albuterol Sulfate (Iprat-Albut 0.5-3(2.5) MG/3 Ml) 3 ML AMPUL.NEB 3 Milliliters Inhale Solution EVERY SIX HOURS as needed for shortness of breath Comments: NOT TAKEN IN HOSPITAL Nystatin (Nystatin) 15 GM CREAM..G. 1 Application On the skin TWICE DAILY Instructions: apply to affected area(s) Comments: NOT TAKEN IN HOSPITAL Pantoprazole Sodium (Protonix) 40 MG TABLET.DR 1 Tablet ORAL DAILY Comments: Last Taken:10/03/16 Time:0700 Rifaximin (Xifaxan) 550 MG TABLET 1 Tablet ORAL TWICE DAILY Comments: NOT TAKEN Saccharomyces Boulardii (Florastor) 250 MG CAPSULE 250 Milligram ORAL TWICE DAILY Comments: Last Taken: 04/20/16 Time: 11 A.m. Sennosides (Senna) 8.6 MG TABLET 2 Tablet ORAL AT BEDTIME Comments: Last Taken:10/03/16 Time:1000 Sotalol HCl (Sotalol) 80 MG TABLET 0.5 Tablet ORAL TWICE DAILY Comments: Last Taken:10/03/16 Time: 10 AM Tiotropium [place] (Spiriva) 18 MCG CAP.W.DEV 1 Capsule Inhale through mouth DAILY Comments: Last Taken:10/03/16 Time:1000 Tizanidine HCl (Tizanidine HCl) 4 MG TABLET 1 Tablet ORAL Every night Comments: Last Taken: 08/28/16 Time: 10 PM Mineral Oil/Petrolatum,White (Eucerin Creme) 120 GM CREAM..G. 1 Application On the skin DAILY Comments: Last Taken:10/03/16 Time:1000 Zinc Oxide (Desitin) (Unknown Strength) CREAM..G. Unknown Dose THREE TIMES DAILY Estrogens, Conjugated (Premarin) 30 GM CREAM.APPL 1 Application On the skin THREE TIMES DAILY Comments: NOT GIVEN IN THE HOSPITAL Clobetasol Propionate (Temovate) 15 GM OINT...G. 1 Application On the skin TWICE DAILY Days = 30 Comments: NOT GIVEN IN THE HOSPITAL Petrolatum,White (Aquaphor) 396 GM OINT...G. 1 Application On the skin DAILY Days = 30 Instructions: apply on left leg Comments: Last Taken: 10/03/16 Time: 10 AM Fentanyl (Fentanyl) 1 EACH PATCH.TD72 25 Microgram On the skin Q72H Days = 30 Instructions: Apply to right hip, follow up with your pain doctor Comments: Last Taken: 10/02/16 Time: 9 PM Ramelteon (Rozerem) 8 MG TABLET 1 Tablet ORAL Every night as needed for SLEEP Days = 30 Instructions: Take 30 minutes before bedtime for sleep. Comments: NOT TAKEN Furosemide (Furosemide) 20 MG TABLET 1 Tablet ORAL DAILY Qty = 30 Comments: Last Taken:10/03/16 Time:9AM GIVEN IN IV FORM Oxycodone HCl (Oxycodone HCl) 10 MG TABLET 1 Tablet ORAL THREE TIMES DAILY Qty = 110 Comments: Last Taken:10/03/16 Time:0600 Cyanocobalamin (Vitamin B-12) (Vitamin B-12) 500 MCG TABLET 2 Tablet ORAL DAILY Qty = 30 Comments: NOT GIVEN IN THE HOSPITAL Ergocalciferol (Vitamin D2) (Vitamin D2) 50,000 UNIT CAPSULE 1 Capsule ORAL ONCE A MONTH Qty = 3 Comments: NOT GIVEN IN THE HOSPITAL Start taking the following new medications: Prednisone (Prednisone) 10 MG TABLET 1 Tablet ORAL See Instructions Qty = 30 No Refills Instructions: On Take 10/03-10/04 take 5 tabs daily 10/05-10/06 take 4 tabs daily 10/07-10/08 take 3 tabs daily 10/09-10/10 take 2 tabs daily 09/10-09/11 take 1 tab daily then stop Comments: Last Taken:10/03/16 Time:1000 Copies To: ZANA HOLLAND,MICHELLE Solis; SARITA HOLLAND,ESTELLA Solis; MANUELA BRANDON MD Attending MD Review Statement Documenting Attending: MANUELA BRANDON MD Other Findings: The patient was seen and discussed with house staff. Agree with plan of care upon discharge.
--- NOTE | 2016-10-03 11:15 | PN- Pulmonary ---
Subjective HPI/Critical Care Issues: Patient seen and examined this morning. She was lying in bed comfortably in no acute distress. She denies any shortness of breath, cough, dizziness, chest pain, headache, palpitation. She remains afebrile, other vitals within normal limits. She has been ambulating without any shortness of breath, satting in high 90s on room air. Her kidney function has improved. She is to be discharged today and advised to follow-up with pulmonology and cardiology in 1 week. Review of Systems Constitutional: Denies: chills, fever. Cardiovascular: Denies: chest pain, orthopena, palpitations. Respiratory: Denies: cough, short of breath, sputum production. Gastrointestinal: Denies: abdominal pain, constipation, diarrhea, nausea, vomiting. Genitourinary: Denies: dysuria, frequency. Objective Current Medications: Current Medications Sig/Barbara Start time Last Medication Dose Route Stop Time Status Admin Acetaminophen 650 MG Q6P PRN 09/28 2300 AC 09/30 PO 1008 Albuterol Sulfate 3 ML Q4P PRN 09/29 1715 AC 10/02 INH 2115 Benzonatate 100 MG BID 10/01 1424 AC 10/03 PO 0925 Budesonide/ 2 PUF BID 09/28 2258 AC 10/03 Formoterol Fumarate INH 0926 Fentanyl Citrate 25 MCG Q72H 10/02 2100 AC 10/02 TOP 2109 Ferrous Sulfate 325 MG BID 09/29 1000 AC 10/03 PO 0925 Furosemide 20 MG DAILY 09/29 1000 AC 10/03 IV 0926 Gabapentin 200 MG TID 09/28 2259 AC 10/03 PO 0925 Guaifenesin 600 MG Q12 PRN 09/29 0115 AC PO Heparin Sodium 5,000 UNIT Q8 09/29 0600 AC 10/03 (Porcine) SC 0658 Melatonin 3 MG AT BEDTIME 09/29 2200 AC 10/02 PO 2329 Oxycodone HCl 10 MG TID PRN 09/28 2330 AC 10/03 PO 0658 Polyethylene Glycol 17 GM DAILY 10/02 1226 AC 10/03 PO 0925 Prednisone 60 MG DAILY 10/02 1000 AC 10/03 PO 0925 Senna/Docusate Sodium 1 TAB BID PRN 10/02 1230 AC 10/03 PO 0926 Sotalol HCl 40 MG BID 09/29 1000 AC 10/03 PO 0925 Tiotropium [place] 1 PUF DAILY 09/29 1000 AC 10/03 INH 0926 Tizanidine HCl 4 MG QPM 09/29 2200 AC 10/02 PO 2211 Wool Wax Alcohol 1 PAM BID 09/30 0045 10/03 TOP 0926 Vital Signs & I&O Last 24 Hrs of Vitals and I&O: Vital Signs Date Time Temp Pulse Resp B/P Pulse O2 O2 Flow FiO2 Ox Delivery Rate 10/03 0843 98.6 49 20 120/60 96 Room Air 10/03 0017 98.0 48 20 110/60 96 Room Air 10/03 0000 Room Air 10/02 2216 54 116/52 10/02 2115 96 Room Air 10/02 1540 98.2 80 20 122/68 98 10/02 1136 98 Room Air Room Air Intake & Output 10/03 1600 10/03 0800 10/03 0000 Intake Total 520 Output Total 750 950 Balance -750 -430 Intake, Oral 520 Output, Urine 750 950 Patient 231 lb Weight Laboratory Tests 10/03 10/02 0630 0955 Chemistry Sodium (137 - 145 mmol/L) 138 139 Potassium (3.5 - 5.1 mmol/L) 4.5 4.9 Chloride (98 - 107 mmol/L) 103 101 Carbon Dioxide (22 - 30 mmol/L) 28 28 Anion Gap (5 - 16) 7 10 BUN (7 - 17 mg/dL) 39 H 42 H Creatinine (0.5 - 1.0 mg/dL) 1.1 H 1.3 H Estimated GFR (>60 ml/min) 49 L 41 L BUN/Creatinine Ratio (7 - 25 %) 35.5 H 32.3 H Hematology CBC w Diff NO MAN DIFF REQ WBC (4.8 - 10.8 /CUMM) 6.9 RBC (4.20 - 5.40 /CUMM) 3.58 L Hgb (12.0 - 16.0 G/DL) 11.8 L Hct (37 - 47 %) 35.3 L MCV (81.0 - 99.0 FL) 98.7 MCH (27.0 - 31.0 PG) 32.9 H RDW (11.5 - 14.5 %) 14.2 Plt Count (130 - 400 /CUMM) 184 MPV (7.4 - 10.4 FL) 8.2 Gran % (42.2 - 75.2 %) 69.1 Lymphocytes % (20.5 - 51.1 %) 25.6 Monocytes % (1.7 - 9.3 %) 5.1 Eosinophils % (0 - 5 %) 0 Basophils % (0.0 - 2.0 %) 0.2 Absolute Granulocytes (1.4 - 6.5 /CUMM) 4.8 Absolute Lymphocytes (1.2 - 3.4 /CUMM) 1.8 Absolute Monocytes (0.10 - 0.60 /CUMM) 0.4 Absolute Eosinophils (0.0 - 0.7 /CUMM) 0 Absolute Basophils (0.0 - 0.2 /CUMM) 0 PUBS MCHC (33.0 - 37.0 G/DL) 33.4 Microbiology Date/Time Procedure - Status Source Growth 09/30 1717 Respiratory Culture - CAN LOWER RESP Cancelled: SPECIMEN NOT RECEIVED IN LABORATORY 09/30 1717 Gram Stain - CAN LOWER RESP Cancelled: SPECIMEN NOT RECEIVED IN LABORATORY Impression/Plan Impression/Plan Impression/Plan: SIGNIFICANT DATA Previous pulmonary function tests had shown mild obstructive lung disease with reduced DLCO. Echocardiogram done in August 2016 had shown significant diastolic heart disease with moderate pulmonary hypertension. Previous CT scan of the chest done in 2012 had shown a soft tissue hematoma in the chest wall fracture of the manubrium with rib fractures, small patchy groundglass opacity consistent with pulmonary contusion, palpitation aorta with prominent right paratracheal lymph nodes. Chest CT done in 2011 had shown nonspecific stable mediastinal lymphadenopathy in the right paratracheal area which had been stable for years. Lower extremity Doppler did not reveal any DVT, mild left being while lymphadenopathy. Chest x-ray showed persistent pulmonary vascular congestion. 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 Blood work reviewed. Creatinine is 1.2 with chronic kidney disease which is stable. Previous uric acid was elevated , Previous hepatitis viral panel and HIV was negative. Previous proBNP has been elevated. Chronic anemia with slightly reduced platelets. Previous ABG did not reveal hypercarbia. Previous immunoelectrophoresis had shown probable monoclonal component Physical Exam General Appearance Alert, Oriented X3, No Acute Distress HEENT Mucous Membr. moist/pink Cardiovascular Regular Rate, Normal S1, Normal S2 Lungs Bilateral Wheezes and Rhonchi Scattered Throughout Lung [place] Significant transmitted upper airway sounds noted, consistent with tracheobronchomalacia Abdomen Soft, No Tenderness, Positive Bowel Sounds Neurological No Gross Focal Deficits Noted Extremities No Clubbing, No Cyanosis, Bilateral Lower Extremities with Trace Edema And Chronic Venous Stasis Changes IMPRESSION This is a morbidly obese lady with ELISE non compliant (with recent wt loss) with significant ongoing smoking history, mild obstructive lung disease by pfts in 2012, previous history of mediastinal lymphadenopathy with biopsy suggestive of silica exposure may have mild silicosis, chronic lung disease, severe diastolic dysfunction with pulmonary hypertension secondary to diastolic dysfunction, chronic lower extremity edema with vascular insufficiency with recurrent cellulitis, dilated aorta, now comes here with Cough wheezing shortness of breath in a lady with obstructive lung disease with wheezing consistent with * Resolving Acute COPD exacerbation. Patient has mild obstructive lung disease from previous PFTs but she continues to smoke and she has not had any PFTs in the recent past. * Previous history of silica exposure with stable mediastinal lymphadenopathy with previous biopsy suggestive of silica exposure with lymphadenopathy. No clinical evidence suggestive of significant worsening of silicosis. * Severe restrictive heart disease with normal ejection fraction with improving acute congestive diastolic heart failure * Paroxysmal atrial fibrillation not on anticoagulation therapy. * Chronic anemia with chronic kidney disease. * Chronic lower extremity venous insufficiency with recurrent cellulitis. * Anxiety and depression. * Significant obstructive sleep apnea in the past, noncompliant with her CPAP. ( However patient has weight loss in the recent past.) * Significant tracheobronchomalacia by clinical exam due to recurrent bronchitis * Chronic pain syndrome with probable fibromyalgia with previous vasculitis workup negative. Pt does have elise and high risk for hypercarbia * Insomnia, constipation, depression and anxiety relatively stable. * Mild to moderate pulmonary hypertension related to obstructive sleep apnea and severe diastolic dysfunction. Patient does have stage III diastolic dysfunction with restrictive filling pattern in the recent echocardiogram. * Ongoing cigarette smoking with chronic lung disease. Patient is high risk for malignancy. * Previous history of significant aortic dilatation. RECOMMENDATION * Wean steroids in 8 to 10 days * Continue diuresis * Smoking cessation counseling was done. Po abx * Watch her renal function. * Continue her nebulizer therapy, albuterol as needed. * Continue Spiriva. * Continue her Symbicort for now. * She would require a CT scan of the chest without IV contrast to evaluate her mediastinal lymphadenopathy and her aorta as out pt Pt can be dcd and please have pt see me soon as out pt for follow up and pt is aware of this as she has been not too compliant before
--- NOTE | 2016-10-03 12:43 | PN- Cardiology ---
Subjective Subjective: Saw Ms. Avila last evening (10/02/2016) and she was continuing to feel improved following diuresis. She has intermittently had her antiarrhythmic sotalol 40 mg twice daily held for bradycardia. Objective Vital Signs and I&Os Vital Signs Date Time Temp Pulse Resp B/P Pulse O2 O2 Flow FiO2 Ox Delivery Rate 10/03 0843 98.6 49 20 120/60 96 Room Air 10/03 0017 98.0 48 20 110/60 96 Room Air 10/03 0000 Room Air 10/02 2216 54 116/52 10/02 2115 96 Room Air 10/02 1540 98.2 80 20 122/68 98 Intake & Output 10/03 1600 10/03 0800 10/03 0000 10/02 1600 10/02 0000 Intake Total 520 400 400 Output Total 750 950 696 502 1432 Balance -750 -430 -400 -600 -800 Intake, Oral 520 400 400 Number 1 0 Bowel Movements Output, Urine 750 950 [phone] Patient 232 lb 231 lb 235 lb Weight Physical Exam: Well-developed, morbidly obese elderly female in no acute distress. Vital signs: See above. Lungs: Decreased breath sounds bilaterally. Heart: S1, S2 with grade 1-2/6 systolic murmur. Extremities: 1+ right and trace left lower extremity edema. Assessment/Plan Assessment/Plan Ms. 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, obstructive sleep apnea, hypertension, dyslipidemia, diabetes mellitus, dilatation of the ascending aorta, chest pain syndrome (normal cardiac catheterization January 2007; negative stress test February 2009 and December 2011), paroxysmal atrial fibrillation on anti-arrhythmic therapy with sotalol without anticoagulation (vide infra), left ventricular hypertrophy and previous diastolic heart failure, as well as, chronic bilateral lower extremity edema (right greater than left) with recurrent cellulitis who presented with the sudden onset of severe shortness of breath and who was found to have evidence of heart failure on her CXR. Her heart failure was likely secondary to her left ventricular hypertrophy and diastolic dysfunction and was also likely, in part, precipitated by an exacerbation of her COPD. She is feeling improved and her BUN/creatinine have only slightly increased today. We will continue to diurese. The issue of anticoagulation for her paroxysmal atrial fibrillation was discussed with her supervisor mill during her last hospitalization and he felt that she was not a good candidate for anticoagulation given her GI issues. Would continue with sotalol 40 mg twice daily with close attention to her heart rate. She is aware of the fact that she may require a permanent pacemaker if we document symptomatic bradycardia. She wore a 24-hour Holter monitor at the time of discharge from the last hospitalization which revealed acceptable heart rates in no symptoms. We will also plan for a dobutamine stress test to exclude significant ischemia as a contributing factor to her presentation with diastolic heart failure, as well as, her NSVT, etc. on an outpatient basis. Agree with pulmonary recommendation for follow-up chest CT scan when present situation has improved. Continue DVT prophylaxis. Continue telemetry? Yes (bradycardia.)
--- NOTE | 2016-10-03 12:45 | PN- Cardiology ---
Subjective Subjective: Continues to feel improved with diuresis. The slowest heart rate recorded was 39 bpm while she was asleep. She has otherwise been running in the 50 beat per minute range. Objective Vital Signs and I&Os Vital Signs Date Time Temp Pulse Resp B/P Pulse O2 O2 Flow FiO2 Ox Delivery Rate 10/03 0843 98.6 49 20 120/60 96 Room Air 10/03 0017 98.0 48 20 110/60 96 Room Air 10/03 0000 Room Air 10/02 2216 54 116/52 10/02 2115 96 Room Air 10/02 1540 98.2 80 20 122/68 98 Intake & Output 10/03 1600 10/03 0800 10/03 0000 10/02 1600 10/02 0800 10/02 0000 Intake Total 520 400 400 Output Total 750 950 048 786 7021 Balance -750 -430 -400 -600 -800 Intake, Oral 520 400 400 Number 1 0 Bowel Movements Output, Urine 750 950 [phone] Patient 232 lb 231 lb 235 lb Weight Physical Exam: Well-developed, morbidly obese elderly female in no acute distress. Vital signs: See above. Lungs: Decreased breath sounds bilaterally. Heart: S1, S2 with grade 1-2/6 systolic murmur. Extremities: 1+ right and trace left lower extremity edema. Current Medications: Current Medications Sig/Barbara Start time Last Medication Dose Route Stop Time Status Admin Acetaminophen 650 MG Q6P PRN 09/28 2300 AC 09/30 PO 1008 Albuterol Sulfate 3 ML Q4P PRN 09/29 1715 AC 10/02 INH 2115 Benzonatate 100 MG BID 10/01 1424 AC 10/03 PO 0925 Budesonide/ 2 PUF BID 09/28 2258 AC 10/03 Formoterol Fumarate INH 0926 Fentanyl Citrate 25 MCG Q72H 10/02 2100 AC 10/02 TOP 2109 Ferrous Sulfate 325 MG BID 09/29 1000 AC 10/03 PO 0925 Furosemide 20 MG DAILY 09/29 1000 10/03 IV 0926 Gabapentin 200 MG TID 09/28 225 AC 10/03 PO 0925 Guaifenesin 600 MG Q12 PRN 09/29 0115 AC PO Heparin Sodium 5,000 UNIT Q8 09/29 0600 AC 10/03 (Porcine) SC 0658 Melatonin 3 MG AT BEDTIME 09/29 2200 AC 10/02 PO 2329 Oxycodone HCl 10 MG TID PRN 09/28 2330 AC 10/03 PO 0658 Polyethylene Glycol 17 GM DAILY 10/02 1226 AC 10/03 PO 0925 Prednisone 60 MG DAILY 10/02 1000 AC 10/03 PO 0925 Senna/Docusate Sodium 1 TAB BID PRN 10/02 1230 AC 10/03 PO 0926 Sotalol HCl 40 MG BID 09/29 1000 AC 10/03 PO 0925 Tiotropium [place] 1 PUF DAILY 09/29 1000 AC 10/03 INH 0926 Tizanidine HCl 4 MG QPM 09/29 2200 AC 10/02 PO 2211 Wool Wax Alcohol 1 PAM BID 09/30 0045 AC 10/03 TOP 0926 Results Last 48 Hrs of Labs/Mics: Laboratory Tests 10/03/16 0630: Anion Gap 7, Estimated GFR 49 L, BUN/Creatinine Ratio 35.5 H 10/02/16 0955: Anion Gap 10, Estimated GFR 41 L, BUN/Creatinine Ratio 32.3 H, CBC w Diff NO MAN DIFF REQ, RBC 3.58 L, MCV 98.7, MCH 32.9 H, RDW 14.2, MPV 8.2, Gran % 69.1 , Lymphocytes % 25.6, Monocytes % 5.1, Eosinophils % 0, Basophils % 0.2, Absolute Granulocytes 4.8, Absolute Lymphocytes 1.8, Absolute Monocytes 0.4, Absolute Eosinophils 0, Absolute Basophils 0, PUBS MCHC 33.4 Assessment/Plan Assessment/Plan Ms. 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, obstructive sleep apnea, hypertension, dyslipidemia, diabetes mellitus, dilatation of the ascending aorta, chest pain syndrome (normal cardiac catheterization January 2007; negative stress test February 2009 and December 2011), paroxysmal atrial fibrillation on anti-arrhythmic therapy with sotalol without anticoagulation (vide infra), left ventricular hypertrophy and previous diastolic heart failure, as well as, chronic bilateral lower extremity edema (right greater than left) with recurrent cellulitis who presented with the sudden onset of severe shortness of breath and who was found to have evidence of heart failure on her CXR. Her heart failure was likely secondary to her left ventricular hypertrophy and diastolic dysfunction and was also likely, in part, precipitated by an exacerbation of her COPD. She is feeling improved and her BUN/creatinine have slightly improved today. We will continue to diurese on an outpatient basis. The issue of anticoagulation for her paroxysmal atrial fibrillation was discussed with her head of design during her last hospitalization and he felt that she was not a good candidate for anticoagulation given her GI issues. Would continue with sotalol 40 mg twice daily with close attention to her heart rate. She is aware of the fact that she may require a permanent pacemaker if we document symptomatic bradycardia. She wore a 24-hour Holter monitor at the time of discharge from the last hospitalization which revealed acceptable heart rates in no symptoms. We will also plan for a dobutamine stress test to exclude significant ischemia as a contributing factor to her presentation with diastolic heart failure, as well as, her NSVT, etc. on an outpatient basis. Agree with pulmonary recommendation for follow-up chest CT scan when present situation has improved. Continue DVT prophylaxis. Continue telemetry? No (being discharged.)
== END 2016-10-03 14:35 | DRG 190 ==
LOC: ENRESERVDT → ENRESERVTM → ERH 19:10 → ERHI 22:01 → 1NO 22:01 → ENPENDDIS 22:01 → 1NO 23:50
PROVIDERS: Emergency Medicine; Physician Assistant; Student in an Organized Health Care Education/Training Program; ADMIT Internal Medicine
DX: J44.1 Chronic obstructive pulmonary disease with (acute) exacerbation (principal); I50.33 Acute on chronic diastolic (congestive) heart failure; E66.01 Morbid (severe) obesity due to excess calories; I48.0 Paroxysmal atrial fibrillation; I11.0 Hypertensive heart disease with heart failure; F17.210 Nicotine dependence, cigarettes, uncomplicated; Z68.37 Body mass index [BMI] 37.0-37.9, adult; Z91.19 Patient's noncompliance with other medical treatment and regimen; G47.33 Obstructive sleep apnea (adult) (pediatric); E78.5 Hyperlipidemia, unspecified; I71.9 Aortic aneurysm of unspecified site, without rupture; D53.9 Nutritional anemia, unspecified
CPT/HCPCS: 1NP; 36415; 82436; 87040; 87070; 87804; 87804-59; 93005; 93010; 93970; 96374; 97110-GO; 97116-GO; 97162-GP; 97530-GO; J0456; J1644; J1940; J2920; J2930; J3490

== ENCOUNTER 2017-01-14 14:34 | Inpatient (IN) | payer OTHER, MEDICARE ==
[~2017-01-14] VITALS: Ht 170.2 cm; Wt 106.8 kg
[~2017-01-14 14:34] MED LIST changes: +HYDROXYZINE HCL50 M1 PO; +VITAMIN B-12500 MC2 PO; +VITAMIN D250000 UNIT PO
--- NOTE | 2017-01-14 14:45 | NUR ---
71 YEAR OLD FEMALE HISTORY OF CHF/COPD STATES THAT SHE TAKES LASIX 20 MG PO DAILY AT HOME AND GOES TO CHF CLINIC 1X WEEK FOR IV LASIX, LAST DOSE IV WAS 2 WEEKS AGO, STATES THAT SHE WAS DOING WELL. COMPLAINS THAT OVER THE PAST 3-4 DAYS SHE HAS HAD LOOSE COUGH PRODUCTIVE OF CLEAR SPUTUM AND SOB, HAS BEEN USING HER NEBULIZER AT HOME WITH NO RELIEF. O2 SAT AFTER AMBULATION 88 % AND INCREASED TO 91 % AT REST. PT NOTED TO BE SOB WHILE SPEAKING. ALSO COMPLAINS OF HEADACHE FOR THE PAST 3 DAYS. HAS APPOINTMENT TO HAVE A LESION THAT IS CANCEROUS REMOVED ON SATURDAY.
--- NOTE | 2017-01-14 14:49 | ED DYSPNEA/ASTHMA COMPLAINT ---
History of Present Illness General Chief Complaint: Dyspnea (COPD, CHF, Other) Stated Complaint: DIFF BREATHING O2 93% Source: patient Exam Limitations: no limitations Vital Signs & Intake/Output Vital Signs & Intake/Output Vital Signs Date Time Temp Pulse Resp B/P B/P Pulse O2 O2 Flow FiO2 Mean Ox Delivery Rate 01/14 2009 58 20 138/66 95 Nasal 3.0L Cannula 01/14 1813 98 Nasal 2.0L Cannula 01/14 1735 60 20 150/68 98 Nasal 3.0L Cannula 01/14 1604 98 Nasal 2.0L Cannula 01/14 1441 97.2 66 22 168/89 91 Room Air Allergies Coded Allergies: azithromycin (Mild, RASH, ITCHY 09/28/16) Penicillins (ITCHY RASH 09/28/16) Sulfa (Sulfonamide Antibiotics) (ITCHY RASH 09/28/16) adhesive tape (ITCHY RASH 09/28/16) amantadine (ITCHY RASH 09/28/16) cefadroxil (ITCHY RASH 09/28/16) codeine (ITCHY RASH 09/28/16) erythromycin base (ITCHY RASH 09/28/16) sulfadiazine (ITCHY RASH 09/28/16) latex (Intermediate, CONTACT DERMATITIS 04/15/16) Triage Note: 71 YEAR OLD FEMALE HISTORY OF CHF/COPD STATES THAT SHE TAKES LASIX 20 MG PO DAILY AT HOME AND GOES TO CHF CLINIC 1X WEEK FOR IV LASIX, LAST DOSE IV WAS 2 WEEKS AGO, STATES THAT SHE WAS DOING WELL. COMPLAINS THAT OVER THE PAST 3-4 DAYS SHE HAS HAD LOOSE COUGH PRODUCTIVE OF CLEAR SPUTUM AND SOB, HAS BEEN USING HER NEBULIZER AT HOME WITH NO RELIEF. O2 SAT AFTER AMBULATION 88 % AND INCREASED TO 91 % AT REST. PT NOTED TO BE SOB WHILE SPEAKING. ALSO COMPLAINS OF HEADACHE FOR THE PAST 3 DAYS. HAS APPOINTMENT TO HAVE A LESION THAT IS CANCEROUS REMOVED ON SATURDAY. Triage Nurses Notes Reviewed? yes Onset: Gradual Duration: getting worse Timing: recent history Severity: severe Activities at Onset: activity Prior Episodes/Possible Cause: frequent episodes, chronic episodes Modifying Factors: Improves With: rest. Worsens With: movement. HPI: Patient is a 71-year-old female with past medical history of COPD NOT ON HOME O2 , diastolic CHF and atrial fibrillation not on anticoagulation, SQUAMOUS CELL CARCINOMNA OF SCALP, HTN WHO IS AN EVERYDAY SMOKER who had recently been admitted to [facility] SEP 2016 for concerns of COPD and CHF exacerbation who presents emergency room seen at the past months she's been complaining of worsening dyspnea and dyspnea on exertion and the last 3 days symptoms of shortness of breath cough shaky RIGOR chills and worsening wheezing Patient denies any chest pain or arm pain jaw pain nausea vomiting hemoptysis (SHANKAR JAVED) Reconcile Medications Albuterol Sulfate (Proventil Hfa) 6.7 GM HFA.AER.AD 2 PUF INH Q6 PRN wheezinG (Reported) Clotrimazole/Betamethasone Dip (Clotrimazole-Betamethasone Crm) 1 %-0.05 % CREAM..G. 1 PAM TOP PRN SKIN (Reported) apply to affected area(s) Cyanocobalamin (Vitamin B-12) (Vitamin B-12) 500 MCG TABLET 2 TAB PO DAILY SUPPLEMENT (Reported) Docusate Sodium (Colace) 100 MG CAPSULE 1 CAP PO DAILY STOOL SOFTENER ( Reported) Ergocalciferol (Vitamin D2) (Vitamin D2) 50,000 UNIT CAPSULE 1 CAP PO Q30D SUPPLEMENT (Reported) Estrogens, Conjugated (Premarin) 30 GM CREAM.APPL 1 PAM TOP TID women health (Reported) Fentanyl 1 EACH PATCH.TD72 25 MCG TOP Q72H Pain Apply to right hip, follow up with your pain doctor Ferrous Sulfate 325 MG TABLET 1 TAB PO BID iron (Reported) Fluticasone/Salmeterol (Advair 250-50 Diskus) 1 EACH BLST.W.DEV 1 PUF INH BID lung (Reported) Furosemide 40 MG TABLET 0.5 TAB PO DAILY DIURETIC (Reported) Gabapentin (Neurontin) 100 MG CAPSULE 2 CAP PO TID pain (Reported) Hydroxyzine HCl 50 MG TABLET 0.5 TAB PO PRN ITCHING (Reported) Ipratropium/Albuterol Sulfate (Iprat-Albut 0.5-3(2.5) MG/3 Ml) 3 ML AMPUL.NEB 3 ML INH/MAGO Q6 PRN shortness of breath (Reported) Mineral Oil/Petrolatum,White (Eucerin Creme) 120 GM CREAM..G. 1 PAM TOP DAILY dry skin (Reported) Oxycodone HCl 10 MG TABLET 1 TAB PO TID PAIN (Reported) Pantoprazole Sodium (Protonix) 40 MG TABLET.DR 1 TAB PO DAILY stomach ( Reported) Petrolatum,White (Aquaphor) 396 GM OINT...G. 1 PAM TOP DAILY skin lesion apply on left leg Ramelteon (Rozerem) 8 MG TABLET 1 TAB PO QPM PRN SLEEP Take 30 minutes before bedtime for sleep. Rifaximin (Xifaxan) 550 MG TABLET 1 TAB PO BID diarrhea (Reported) Saccharomyces Boulardii (Florastor) (Unknown Strength) CAPSULE (Unknown Dose) PO DAILY PROBIOTIC (Reported) Sennosides (Senna) 8.6 MG TABLET 1 TAB PO AT BEDTIME constipation (Reported) Sotalol HCl (Sotalol) 80 MG TABLET 0.5 TAB PO BID heart (Reported) Tiotropium Jasper (Spiriva) 18 MCG CAP.W.DEV 1 CAP INH DAILY lung (Reported) Tizanidine HCl 4 MG TABLET 1 TAB PO QPM sleep (Reported) (GEO HOLLAND,OTONIEL) Past History Travel History Traveled to [place] past 21 day No Medical History Any Pertinent Medical History? see below for history Neurological: migraine EENT: NONE Cardiovascular: AFIB, CAD, chronic venous insuff, diastolic CHF, hypertension, hyperlipidemia, PVD, descending aortic artery aneurysm Respiratory: COPD, JOSSUE Gastrointestinal: GERD, hiatal hernia, HX OF GI BLEED HX OF SBO Hepatic: cirrhosis, SBP Renal: NONE Musculoskeletal: chronic back pain, disk herniation, fibromyalgia, osteoarthritis Psychiatric: insomnia Endocrine: diabetes, osteoporosis Blood Disorders: anemia Cancer(s): HX OF ORAL CANCER [employer]/Reproductive: HYSTERECTOMY History of MRSA: No History of VRE: No History of CDIFF: No Influenza Vaccine: 06/18/16 Surgical History Surgical History: cholecystectomy, hysterectomy, knee replacement, cervical disc surgery ulnar surgery resection of GI carcinoma left heel spur surgery Psychosocial History Who do you live with Patient/Self Services at Home Nursing What is your primary language Ukrainian Tobacco Use: Current Daily Use Daily Tobacco Use Amount/Type: => 5 Cigarettes daily ETOH Use: denies use Illicit Drug Use: denies illicit drug use Family History Family History, If Any: FATHER (Throat cancer and smoker). Hx Contributory? No (RAFAELA LANG,SHANKAR) Review of Systems Review of Systems Constitutional: Reports: no symptoms. EENTM: Reports: no symptoms. Respiratory: Reports: see HPI, cough, wheezing. Cardiovascular: Reports: no symptoms. GI: Reports: no symptoms. Genitourinary: Reports: no symptoms. Musculoskeletal: Reports: no symptoms. Skin: Reports: no symptoms. Neurological/Psychological: Reports: no symptoms. Hematologic/Endocrine: Reports: no symptoms. Immunologic/Allergic: Reports: no symptoms. All Other Systems: Reviewed and Negative (SHANKAR JAVED) Physical Exam Physical Exam General Appearance: no apparent distress, obese Respiratory: chest non-tender, no respiratory distress, SIGNIFICANT EXPIRATORY/ INSPIRATORY WHEEZING Comments: HEENT: Normal EENT exam, extraocular motion intact, no nystagmus. Pupils equally round and reactive to light and accommodation. Nose is atraumatic. External auditory canal and Tympanic membranes clear. Pharynx normal. No swelling or edema. Neck: Supple, no lymphadenopathy, normal range of motion without pain or tenderness Back: Nontender, no CVA tenderness Cardiovascular: Regular rate and rhythms no murmurs rubs or gallops, normal JVP Abdomen: Soft, nontender nondistended, no appreciable organomegaly. Normal bowel sounds. No ascites Extremity: NOTED +2 lower extremity pitting edema no calf tenderness to palpation, normal and equal pulses. Neuro: Alert oriented x3, motor sensory normal, Skin: No appreciable rash on exposed skin, skin is warm and dry. Psych: Mood and affect is normal, memory and judgment is normal. Core Measures ACS in differential dx? Yes Severe Sepsis Present: No Septic Shock Present: No (SHANKAR JAVED) Progress Differential Diagnosis: asthma, AMI, bronchitis, costochondritis, CHF, COPD, musculoskeletal pain, pericarditis, pulmonary embolism, pneumonia, pneumothorax, rib fracture, unstable angina Plan of Care: Orders Procedure Date/time Status Heart Healthy Diet 01/15 B Active CBC WITHOUT DIFFERENTIAL 01/15 600 Active BASIC ELECTROLYTES PLUS BUN&CR 01/15 600 Active Pathway - chart 01/15 2104 Active TRC EVALUATION (GEN) 01/14 2035 Active OXYGEN SETUP (GEN) 01/14 2035 Active Saline Lock 01/14 2035 Active Pathway - chart 01/14 2035 Active House Staff 01/14 2035 Active Code Status 01/14 1914 Active Patient Data 01/14 1843 Active Admit to inpatient 01/14 1836 Active Intake & Output 01/14 1627 Active LOWER RESPIRATORY CULTURE 01/14 1530 Active LACTIC ACID 01/14 1530 Complete EKG 01/14 1530 Active Telemetry/Bag Filler 01/14 151 Active BLOOD CULTURE 01/14 151 Active TROPONIN LEVEL 01/14 151 Complete D-DIMER 01/14 151 Complete COMPREHENSIVE METABOLIC PANEL 01/14 151 Complete CBC WITHOUT DIFFERENTIAL 01/14 1517 Complete B-TYPE NATRIURETIC PEP (BNP) 01/14 151 Complete VTE Mechanical Prophylaxis 01/14 UNK Active Current Medications Sig/Barbara Start time Last Medication Dose Stop Time Status Admin Azithromycin 500 MG DAILY 01/15 1000 AC (Zithromax) Sodium Chloride 250 ML (Normal Saline 0.9%) Enoxaparin Sodium 40 MG DAILY 01/15 1000 AC (Lovenox) Furosemide 20 MG 7:30 AM, & 4:30 PM 01/15 730 AC (Lasix) Fentanyl Citrate 25 MCG Q72H 01/14 2045 AC 01/14 (Duragesic) 2126 Oxycodone HCl 10 MG .[CONE] 01/14 1915 AC 01/14 (Roxicodone) 2008 Laboratory Tests 01/14/17 1830: Lactic Acid Cancelled 01/14/17 1541: Lactic Acid 0.7 01/14/17 1541: Anion Gap 11, Estimated GFR 49 L, BUN/Creatinine Ratio 16.4, Glucose 86, Calcium 8.5, Total Bilirubin 0.6, AST 35, ALT 34, Alkaline Phosphatase 111, Troponin I < 0.01, Ebw-O-Wpmqpavullg Pept 1780 H, Total Protein 7.1, Albumin 3.6, Globulin 3.5, Albumin/Globulin Ratio 1.0 L, D-Dimer 510 H, CBC w Diff NO MAN DIFF REQ, RBC 3.52 L, MCV 96.2, MCH 33.0 H, RDW 12.7, MPV 8.2, Gran % 61.9 , Lymphocytes % 20.6, Monocytes % 6.7, Eosinophils % 10.0 H, Basophils % 0.8, Absolute Granulocytes 3.1, Absolute Lymphocytes 1.0 L, Absolute Monocytes 0.3, Absolute Eosinophils 0.5, Absolute Basophils 0, PUBS MCHC 34.3 Microbiology 01/14 1604 BLOOD: Blood Culture - RECD 01/14 1541 BLOOD: Blood Culture - RECD 01/14 1530 LOWER RESP: Respiratory Culture - ORD 01/14 153 LOWER RESP: Gram Stain - ORD Patient on initial examination was 91% with 4 L of oxygen patient does have concerns of significant wheezing and COPD. Nebulizer was administered with no improvement of symptoms. CONTINUOUS nebulizer would be ordered Due to history of present illness and exam findings patient has concerns of COPD exacerbation however patient does have significant leg edema cardiomegaly and suspicion of CT scan of fluid in lungs the patient will be admitted to telemetry FOR CHF Patient had negative studies for pulmonary embolism (RAFAELA LANG,SHANKAR) Diagnostic Imaging: Viewed by Me: Radiology Read, CT Scan. Radiology Impression: SEE COMMENTS Initial ED EK BPM, NSR Prior EKG: unchanged Comments: PATIENT: MAGDIEL SAMAYOA PRESENT AGE: 71 PATIENT ACCOUNT NO: [id number] : 47 LOCATION: [facility] ORDERING PHYSICIAN: SHANKAR LANG SERVICE DATE: 01/14/17 EXAM TYPE: CAT - CTA CHEST-PULMONARY EMBOLISM EXAMINATION: CT ANGIOGRAM CHEST WITH AND WITHOUT CONTRAST (CT PULMONARY ANGIOGRAM FOR PE) CLINICAL INFORMATION: Shortness of breath, elevated D-dimer. COMPARISON: Multiple priors, most recent CT chest dated 04/30/2013 and chest radiograph dated 01/14/2017. TECHNIQUE: Prior to contrast administration, noncontrast localization images were obtained. Subsequently, multidetector volumetric imaging was performed from the thoracic inlet to below the diaphragms following the administration of 125 mL Optiray 350 intravenous contrast. No contrast reaction reported. Sagittal, coronal, and MIP oblique sagittal reformatted images were obtained on the CT workstation, uploaded to PACS, and reviewed. Total exam dose-length product 556.26 mGy-cm. FINDINGS: QUALITY OF STUDY/CONTRAST BOLUS: Satisfactory. PULMONARY ARTERIES: No central or segmental pulmonary emboli. THORACIC AORTA: No aneurysm or dissection. LUNG: There are bilateral scattered groundglass opacities, right greater than left. These findings could represent early infiltrates, prominent interstitial fluid indicating fluid overload, or patchy atelectasis. Clinical correlation is recommended to evaluate for infection or fluid overload. PLEURA: No pleural effusion or pneumothorax. MEDIASTINUM: The heart is enlarged. There is no pericardial effusion. There are scattered small mediastinal lymph nodes, not significantly changed since the prior examination dated 04/30/2013. The largest is precarinal measuring 1.3 cm in greatest diameter. No evidence of septal bowing or right heart strain. CHEST WALL/AXILLA: No axillary or internal mammary lymphadenopathy. OSSEOUS STRUCTURES: No acute or suspicious osseous abnormality. Mild degenerative changes within the thoracic spine. UPPER ABDOMEN: There are surgical clips related to prior cholecystectomy within the right upper quadrant. The upper abdomen is otherwise unremarkable. No reflux of contrast into the hepatic veins to suggest elevated right heart pressures. IMPRESSION: 1. No central or segmental pulmonary emboli. 2. Scattered bilateral groundglass opacities, right greater than left. This could represent early infiltrates, prominent interstitial fluid indicating fluid overload, or patchy atelectasis. Correlation for infection or fluid overload is recommended. 3. Cardiomegaly. 4. Scattered, nonspecific mediastinal lymph nodes, not significantly changed since the chest CT dated 04/30/2017. VTE: Negative. PATIENT: MAGDIEL SAMAYOA PRESENT AGE: 71 PATIENT ACCOUNT NO: [id number] : 47 LOCATION: [facility] ORDERING PHYSICIAN: RETA DASILVA DO SERVICE DATE: 01/14/17 EXAM TYPE: RAD - XRY-CHEST XRAY, PA AND LATERAL EXAMINATION: XR CHEST CLINICAL INFORMATION: Cough. Shortness of breath. COMPARISON: Chest x-ray of 09/28/16 and multiple previous chest x-rays dated back to 11/01/12. TECHNIQUE: 2 views of the chest were obtained. FINDINGS: The cardiomediastinal silhouette is stable with mild cardiomegaly. There is mild diffuse interstitial and vascular prominence which may suggest pulmonary venous congestion/mild interstitial edema. No focal consolidation, pleural effusions or pneumothorax. The visualized osseous structures are unremarkable. Surgical clips are noted in the upper abdomen. IMPRESSION: Stable mild cardiomegaly. Mild pulmonary venous congestion/interstitial edema. No overt pulmonary edema. No focal pulmonary consolidation. (SHANKAR JAVED) Departure Departure Disposition: STILL A PATIENT Condition: Stable Clinical Impression Primary Impression: COPD (chronic obstructive pulmonary disease) Secondary Impressions: CHF (congestive heart failure) Referrals: JOHANNA CHRISTIANSON MD (PCP/Family) Departure Forms: Customer Survey General Discharge Information Admission Note Spoke With: ASTON MUÑOZ MD Documentation of Exam: Documentation of any treatments & extenuating circumstances including Concerns Regarding Discharge (functional status, medication knowledge or non-compliance, living conditions, etc.) that warrant an admission rather than observation: [ Discussed patient with Dr. MUÑOZ who agrees with telemetry admission for concerns of CHF, COPD. Patient requires pulmonary consultation, nebulizer treatments, IV antibiotics, IV Lasix, repeat labs, cardiology consultation. Outpatient treatment due comorbidities clinical presentation of significant wheezing and shortness of breath with be medically harmful] (SHANKAR JAVED) PA/MACHINE CLOTHING MAN Co-Sign Statement Statement: ED Attending supervision documentation- [X] I saw and evaluated the patient. I have also reviewed all the pertinent lab results and diagnostic results. I agree with the findings and the plan of care as documented in the PA's/MACHINE CLOTHING MAN's documentation. [X] I have reviewed the ED Record and agree with the PA's/MACHINE CLOTHING MAN's documentation. [] Additions or exceptions (if any) to the PAs/MACHINE CLOTHING MAN's note and plan are summarized below: [] (GEO HOLLAND,OTONIEL) Critical Care Note Critical Care Note Critical Care Time: 30-74 min (SHANKAR JAVED)
--- NOTE | 2017-01-14 15:22 | NUR ---
PT TO AND FROM XRAY. DR GUARDADO AT BEDSIDE.
--- NOTE | 2017-01-14 15:26 | NUR ---
RICKEY RUSSO AT BEDSIDE FOR EVAL.
[2017-01-14] MEDS ORDERED: COLACE100 M1 PO (15:37)
[2017-01-14] MEDS ORDERED: CLOTRIMAZOLE-BE15 GM TOP (15:38)
[2017-01-14] MEDS ORDERED: FUROSEMIDE40 M1 PO (15:38)
[2017-01-14] MEDS ORDERED: HYDROXYZINE HCL50 M1 PO (15:39)
--- NOTE | 2017-01-14 15:51 | NUR ---
SST X2, LAV, BLUE AND JOSE TOP TUBES SENT TO LAB. FIRST SET OF BLOOD CULTURES ALSO SENT TO LAB.
--- NOTE | 2017-01-14 15:53 | NUR ---
RESP CALLED FOR TREATMENT.
[2017-01-14 15:58] LABS: ABSOLUTE BASOPHIL COUNT 0 /CUMM (0.0-0.2); ABSOLUTE EOSINOPHIL COUNT 0.5 /CUMM (0.0-0.7); ABSOLUTE GRANULOCYTE CT 3.1 /CUMM (1.4-6.5); ABSOLUTE MONOCYTE COUNT 0.3 /CUMM (0.10-0.60); BASOPHIL % 0.8 % (0.0-2.0); GRANULOCYTE % 61.9 % (42.2-75.2); HEMATOCRIT 33.9 % (37-47); MEAN CORPUSCULAR HGB CONC 34.3 G/DL (33.0-37.0); MEAN CORPUSCULAR VOLUME 96.2 FL (81.0-99.0); MEAN PLATELET VOLUME 8.2 FL (7.4-10.4); PLATELET COUNT 242 /CUMM (130-400); RBC DISTRIBUTION WIDTH 12.7 % (11.5-14.5); RED BLOOD CELL CT 3.52 /CUMM (4.20-5.40)
--- NOTE | 2017-01-14 16:00 | RADIOLOGY REPORT ---
EXAMINATION: XR CHEST CLINICAL INFORMATION: Cough. Shortness of breath. COMPARISON: Chest x-ray of 09/28/16 and multiple previous chest x-rays dated back to 11/01/12. TECHNIQUE: 2 views of the chest were obtained. FINDINGS: The cardiomediastinal silhouette is stable with mild cardiomegaly. There is mild diffuse interstitial and vascular prominence which may suggest pulmonary venous congestion/mild interstitial edema. No focal consolidation, pleural effusions or pneumothorax. The visualized osseous structures are unremarkable. Surgical clips are noted in the upper abdomen. IMPRESSION: Stable mild cardiomegaly. Mild pulmonary venous congestion/interstitial edema. No overt pulmonary edema. No focal pulmonary consolidation.
--- NOTE | 2017-01-14 16:06 | NUR ---
PT MEDICATED PER EMAR.
--- NOTE | 2017-01-14 16:36 | NUR ---
PT UP TO COMMODE WITH MINIMAL ASSISTANCE.
--- NOTE | 2017-01-14 16:47 | NUR ---
PHARMACY CALLED FOR VIBRAMYCIN.
--- NOTE | 2017-01-14 17:10 | NUR ---
PT TO CAT SCAN AT THIS TIME VIA STRETCHER.
--- NOTE | 2017-01-14 17:49 | NUR ---
RESP AT BEDSIDE.
--- NOTE | 2017-01-14 17:56 | CT SCAN REPORT ---
EXAMINATION: CT ANGIOGRAM CHEST WITH AND WITHOUT CONTRAST (CT PULMONARY ANGIOGRAM FOR PE) CLINICAL INFORMATION: Shortness of breath, elevated D-dimer. COMPARISON: Multiple priors, most recent CT chest dated 04/30/2013 and chest radiograph dated 01/14/2017. TECHNIQUE: Prior to contrast administration, noncontrast localization images were obtained. Subsequently, multidetector volumetric imaging was performed from the thoracic inlet to below the diaphragms following the administration of 125 mL Optiray 350 intravenous contrast. No contrast reaction reported. Sagittal, coronal, and MIP oblique sagittal reformatted images were obtained on the CT workstation, uploaded to PACS, and reviewed. Total exam dose-length product 556.26 mGy-cm. FINDINGS: QUALITY OF STUDY/CONTRAST BOLUS: Satisfactory. PULMONARY ARTERIES: No central or segmental pulmonary emboli. THORACIC AORTA: No aneurysm or dissection. LUNG: There are bilateral scattered groundglass opacities, right greater than left. These findings could represent early infiltrates, prominent interstitial fluid indicating fluid overload, or patchy atelectasis. Clinical correlation is recommended to evaluate for infection or fluid overload. PLEURA: No pleural effusion or pneumothorax. MEDIASTINUM: The heart is enlarged. There is no pericardial effusion. There are scattered small mediastinal lymph nodes, not significantly changed since the prior examination dated 04/30/2013. The largest is precarinal measuring 1.3 cm in greatest diameter. No evidence of septal bowing or right heart strain. CHEST WALL/AXILLA: No axillary or internal mammary lymphadenopathy. OSSEOUS STRUCTURES: No acute or suspicious osseous abnormality. Mild degenerative changes within the thoracic spine. UPPER ABDOMEN: There are surgical clips related to prior cholecystectomy within the right upper quadrant. The upper abdomen is otherwise unremarkable. No reflux of contrast into the hepatic veins to suggest elevated right heart pressures. IMPRESSION: 1. No central or segmental pulmonary emboli. 2. Scattered bilateral groundglass opacities, right greater than left. This could represent early infiltrates, prominent interstitial fluid indicating fluid overload, or patchy atelectasis. Correlation for infection or fluid overload is recommended. 3. Cardiomegaly. 4. Scattered, nonspecific mediastinal lymph nodes, not significantly changed since the chest CT dated 04/30/2017. VTE: Negative.
--- NOTE | 2017-01-14 18:36 | NUR ---
PT RESTING ON STRETCHER. PT OFFERS NO COMPLAINTS AT THIS TIME. WILL CONTINUE TO MONITOR.
--- NOTE | 2017-01-14 18:57 | NUR ---
RESP AT BEDSIDE FOR TREATMENT.
--- NOTE | 2017-01-14 20:12 | NUR ---
PT MEDICATED PER EMAR VIA [facility]OS MESSINA.
--- NOTE | 2017-01-14 20:46 | NUR ---
HOUSESTAFF AT BEDSIDE.
--- NOTE | 2017-01-14 21:05 | Admission Certification ---
Admission Certification Certification Statement - As attending physician, I certify that at the time of - admission, based on clinical presentation, severity of - symptoms, need for further diagnostic testing and - therapeutic interventions, and risk of adverse outcomes - without in-hospital treatment, in my clinical assessment, - this patient requires an acute hospital stay for a minimum - of two nights or longer. I have also considered psychsocial - factors such as support system, advanced age, financial - issues, cognitive issues, and failed out-patient treatments, - past re-admission history, safety of patient, and lack of - compliance as applicable. Specific rationale supporting this admission is: Acute hypoxic respiratory failure, COPD exacerbation, acute on chronic diastolic heart failure.
--- NOTE | 2017-01-14 21:06 | NUR ---
PHARMACY CALLED FOR FENTANYL PATCH.
--- NOTE | 2017-01-14 21:27 | NUR ---
FENTANYL PATCH APPLIED TO LEFT SIDE OF UPPER BACK.
--- NOTE | 2017-01-14 21:59 | History & Physical ---
JOSÉ HOLLAND,[facility] 01/14/17 2147: General Information and HPI MD Statement: I have seen and personally examined MAGDIEL AVILA and documented this H&P. The patient is a 71 year old F who presented with a patient stated chief complaint of shortness of breath[shortness of breath]. Source of Information: patient, old records Exam Limitations: no limitations History of Present Illness: Ms. Avila is a 71 year old female with past medical history significant for COPD not on home oxygen, HFPEF (stage 3 diastolic dysfunction, EF>65%), A.fib not on anticoagulation because of Hx GI bleeding, squamous cell carcinoma of scalp scheduled for excision Saturday01/18/17, hypertension, chronic venous insufficiency, fibromyalgia, arthritis who presented to ED with chief complaint of shortness of breath. Patient was recently discharged 10/03/16 from [facility] after she was treated for COPD and CHF exacerbation. Patient reported doing fine after discharge and she was following with CHF clinic every week, last visit was 3 weeks ago as her status was stable and was informed to come in one month. One week ago patient started to have flu symptoms of arthralgia, myalgia, chills, productive cough of clear sputum denied any blood, denied fever, sore throat, nasal congestion or ear pain. Patient noticed worsening of shortness of breath along with the onset of these symptoms and today she decided to come to ED for evaluation. She denied any recent changes of her medication including Lasix 20 mg PO daily. She is a current smoker, smokes 5 cigarettes per day, no history of alcohol or ilict drugs. She also reported paroxysmal nocturnal dyspnea over the last 2 days despite stable lower extremity swelling, patient used to sleep on at least 3 pillows or a recliner because of fibromyalgia and arthralgia and used to wake up multiple times because of shoulder pain. Patient received flu vaccine and pneumonia vaccine this year. Allergies/Medications Allergies: Coded Allergies: azithromycin (Mild, RASH, ITCHY 09/28/16) Penicillins (ITCHY RASH 09/28/16) Sulfa (Sulfonamide Antibiotics) (ITCHY RASH 09/28/16) adhesive tape (ITCHY RASH 09/28/16) amantadine (ITCHY RASH 09/28/16) cefadroxil (ITCHY RASH 09/28/16) codeine (ITCHY RASH 09/28/16) erythromycin base (ITCHY RASH 09/28/16) sulfadiazine (ITCHY RASH 09/28/16) latex (Intermediate, CONTACT DERMATITIS 04/15/16) Home Med list Albuterol Sulfate (Proventil Hfa) 6.7 GM HFA.AER.AD 2 PUF INH Q6 PRN wheezinG (Reported) Clotrimazole/Betamethasone Dip (Clotrimazole-Betamethasone Crm) 1 %-0.05 % CREAM..G. 1 PAM TOP PRN SKIN (Reported) apply to affected area(s) Cyanocobalamin (Vitamin B-12) (Vitamin B-12) 500 MCG TABLET 2 TAB PO DAILY SUPPLEMENT (Reported) Docusate Sodium (Colace) 100 MG CAPSULE 1 CAP PO DAILY STOOL SOFTENER ( Reported) Ergocalciferol (Vitamin D2) (Vitamin D2) 50,000 UNIT CAPSULE 1 CAP PO Q30D SUPPLEMENT (Reported) Estrogens, Conjugated (Premarin) 30 GM CREAM.APPL 1 PAM TOP TID women health (Reported) Fentanyl 1 EACH PATCH.TD72 25 MCG TOP Q72H Pain Apply to right hip, follow up with your pain doctor Ferrous Sulfate 325 MG TABLET 1 TAB PO BID iron (Reported) Fluticasone/Salmeterol (Advair 250-50 Diskus) 1 EACH BLST.W.DEV 1 PUF INH BID lung (Reported) Furosemide 40 MG TABLET 0.5 TAB PO DAILY DIURETIC (Reported) Gabapentin (Neurontin) 100 MG CAPSULE 2 CAP PO TID pain (Reported) Hydroxyzine HCl 50 MG TABLET 0.5 TAB PO PRN ITCHING (Reported) Ipratropium/Albuterol Sulfate (Iprat-Albut 0.5-3(2.5) MG/3 Ml) 3 ML AMPUL.NEB 3 ML INH/MAGO Q6 PRN shortness of breath (Reported) Mineral Oil/Petrolatum,White (Eucerin Creme) 120 GM CREAM..G. 1 PAM TOP DAILY dry skin (Reported) Oxycodone HCl 10 MG TABLET 1 TAB PO TID PAIN (Reported) Pantoprazole Sodium (Protonix) 40 MG TABLET.DR 1 TAB PO DAILY stomach ( Reported) Petrolatum,White (Aquaphor) 396 GM OINT...G. 1 PAM TOP DAILY skin lesion apply on left leg Ramelteon (Rozerem) 8 MG TABLET 1 TAB PO QPM PRN SLEEP Take 30 minutes before bedtime for sleep. Rifaximin (Xifaxan) 550 MG TABLET 1 TAB PO BID diarrhea (Reported) Saccharomyces Boulardii (Florastor) (Unknown Strength) CAPSULE (Unknown Dose) PO DAILY PROBIOTIC (Reported) Sennosides (Senna) 8.6 MG TABLET 1 TAB PO AT BEDTIME constipation (Reported) Sotalol HCl (Sotalol) 80 MG TABLET 0.5 TAB PO BID heart (Reported) Tiotropium [place] (Spiriva) 18 MCG CAP.W.DEV 1 CAP INH DAILY lung (Reported) Tizanidine HCl 4 MG TABLET 1 TAB PO QPM sleep (Reported) Past History Travel History Traveled to [place] past 21 day No Medical History Neurological: migraine EENT: NONE Cardiovascular: AFIB, CAD, chronic venous insuff, diastolic CHF, hypertension, hyperlipidemia, PVD, descending aortic artery aneurysm Respiratory: COPD, JOSSUE Gastrointestinal: GERD, hiatal hernia, HX OF GI BLEED HX OF SBO Hepatic: cirrhosis, SBP Renal: NONE Musculoskeletal: chronic back pain, disk herniation, fibromyalgia, osteoarthritis Psychiatric: insomnia Endocrine: diabetes, osteoporosis Blood Disorders: anemia Cancer(s): HX OF ORAL CANCER 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 Psychosocial History Who Do You Live With? Brother Lives Below her Services at Home: Nursing Primary Language: Wolof ETOH Use: denies use Illicit Drug Use: denies illicit drug use Functional Ability ADLs Independent: dressing, eating, toileting, bathing. Ambulation: cane Review of Systems Review of Systems Constitutional: Reports: see HPI. Exam & Diagnostic Data Last 24 Hrs of Vital Signs/I&O Vital Signs Date Time Temp Pulse Resp B/P B/P Pulse O2 O2 Flow FiO2 Mean Ox Delivery Rate 01/14 2009 58 20 138/66 95 Nasal 3.0L Cannula 01/14 1813 98 Nasal 2.0L Cannula 01/14 1735 60 20 150/68 98 Nasal 3.0L Cannula 01/14 1604 98 Nasal 2.0L Cannula 01/14 1441 97.2 66 22 168/89 91 Room Air Intake & Output 01/14 1600 01/14 0800 01/14 0000 Intake Total Output Total Balance Patient 112.491 kg Weight Physical Exam General Appearance Alert, Oriented X3, Cooperative, No Acute Distress Skin No Rashes, Skin laceration om lateral serface of left knee with erythema, no discharge or tenderness Skin Temp/Moisture Exam: Warm/Dry HEENT Atraumatic, PERRLA, EOMI, Mucous Membr. moist/pink, skin lesion over left side of frontal bone of cranial vault Neck Supple, JVP elevated Lymphatic mo cervical lymphadenopathy Cardiovascular Regular Rate, Normal S1, Normal S2, No Murmurs Lungs bilateral decrease air entery and basal course crackles. fine inspiratory wheeze Abdomen Normal Bowel Sounds, Soft, No Tenderness, No Hepatospenomegaly Neurological Normal Gait, Normal Speech, Strength at 5/5 X4 Ext, Normal Tone, Sensation Intact, Cranial Nerves 3-12 NL, Reflexes 2+ Extremities No Clubbing, No Cyanosis, Normal Pulses, BL LE pedal edema +1, erythema chronic, no weepimg or tenderness Assessment/Plan Assessment: Ms. Avila is a 71 year old female with past medical history significant for COPD not on home oxygen, HFPEF (stage 3 diastolic dysfunction, EF>65%), A.fib not on anticoagulation because of Hx GI bleeding, squamous cell carcinoma of scalp scheduled for excision Saturday01/18/17, hypertension, chronic venous insufficiency, irritable bowel syndrome, fibromyalgia, arthritis who presented to ED with chief complaint of shortness of breath. On admission Vital signs temperature 97.2, pulse 66, blood pressure 168/89, respiratory 22 with saturation 91% with room air, 98% on 2 L oxygen Labs H&H 11.6/33.8, WBC 5, sodium 138, potassium 4, BUN/creatinine 18/1.1, glucose 86, lactic acid 0.7, troponin 0.01, proBNP 1780, LFT WNL, d-dimer 510 Imaging Chest x-ray IMPRESSION: Stable mild cardiomegaly. Mild pulmonary venous congestion/interstitial edema. No overt pulmonary edema. No focal pulmonary consolidation. CTA chest IMPRESSION: 1. No central or segmental pulmonary emboli. 2. Scattered bilateral groundglass opacities, right greater than left. This could represent early infiltrates, prominent interstitial fluid indicating fluid overload, or patchy atelectasis. Correlation for infection or fluid overload is recommended. 3. Cardiomegaly. 4. Scattered, nonspecific mediastinal lymph nodes, not significantly changed since the chest CT dated 04/30/2017. VTE: Negative. Problem list #Acute exacerbation congestive heart failure #Acute exacerbation COPD #Atrial fibrillation not on anticoagulant #Hypertension #Chronic pain syndrome because of fibromyalgia and arthritis #Chronic venous insufficiency Plan Admit to telemetry floor for clinical management of following problems: #Acute exacerbation congestive heart failure -Patient used to follow up with CHF clinic, due to her stable CHF condition was informed to follow up in one month -Exacerbation of shortness of breath with reports of paroxysmal nocturnal dyspnea, elevated JVP. Patient denied any worsening of lower extremity swelling. -Patient received 40 mg IV Lasix in ED -Continue Lasix 20 mg by IV twice a day -Monitor weight and daily ins and outs -Cardiac consultation in a.m. -Monitor kidney function while on Lasix -Monitor electrolytes and replete as needed #Acute exacerbation COPD -History of COPD not on home oxygen, current smoker -Shortness of breath could be related to COPD exacerbation as a result of viral infection -Patient is afebrile, no leukocytosis and has productive cough of clear sputum mostly viral infection -Patient received Solu-Medrol 125 mg in ED -Start Solu-Medrol 40 mg daily -Azithromycin 500 mg IV daily to finish course of 5 days -jose LEZAMA -Obtain sputum culture -Pulmonary consultation in a.m. -Smoking cessation counseling -Nicotine patch #Atrial fibrillation not on anticoagulant -Patient was on warfarin in the past that discontinued because of GI bleeding -Currently sinus rhythm, rate controlled -Continue home medication sotalol 40 mg twice a day, monitor QTC while patient on azithromycin #Hypertension -Continue monitor blood pressure #Chronic pain syndrome because of fibromyalgia and arthritis -Continue fentanyl patch -Gabapentin 200 mg 3 times a day -Optimal pain control -Patient is following with pain management clinic at [facility] #Chronic venous insufficiency -Patient has bilateral lower extremity edema with skin changes redness, warmness , no tenderness -Patient has a superficial ulcer at the lateral surface of left knee, mostly granulation tissue as it's none tender with no discharge -Patient was following with wound care center at [facility], according to the patient, her lower extremities condition improved significantly and she stopped following with them -Was following with vascular surgery, had imaging studies but no stents or any vascular procedures -Obtain wound care consultation -Monitor for any signs of infection -Keep leg elevation -DVT prophylaxis Lovenox -Code full -Diet heart healthy As Ranked By This Provider Problem List: 1. COPD exacerbation 2. CHF exacerbation Core Measures/Miscellaneous Acute Coronary Syndrome ACS Diagnosis: No Cerebrovascular Accident CVA/TIA Diagnosis: No Congestive Heart Failure CHF Diagnosis: No Venous Thromboembolism VTE Risk Factors: Age > 40 No Mech VTE prophylaxis d/t: LE Edema No VTE Pharm Prophylaxis d/t: No contraindications VTE Diagnosis: No VTE Type: Pulmonary Embolism VTE Confirmed by (Test): CT CHEST ANGIOGRAM Severe Sepsis Severe Sepsis Present: No Septic Shock Septic Shock Present: No Miscellaneous Documentation Attending Case Discussed With: ASTON MUÑOZ MD Primary Care Physician: JOHANNA CHRISTIANSON MD Patient sees these Specialists Cardiology, dermatology, GI, wound care, pain management Level of Patient Care: Telemetry DANICA JIMENEZ 01/14/17 2230: Resident Review Statement Resident Statement: examined this patient, discussed with pharmacy grad intern, agreed with pharmacy grad intern, reviewed EMR data (avail) Other Findings: is a 71 yo women current every day smoker with PMHx. significant for diastolic CHF, CAD, PAF not on anti-coagulation, COPD not on home oxygen, chronic venous insufficiency c/b leg ulcers, HTN, fibromyalgia, depression/ anxiety, osteoarthritis, cirrhosis c/b esophageal varices and upper GI bleed and JOSSUE who presented with SOB, cough for 3 days Patient was recently discharged from @ september, after being treated for COPD exacerbation and CHF, she was doing OK after her discharge, she was following with CHF clinic weekly to adjust her Lasix dose, she feeling better last time she went to CHF clinic was month ago, she was seen by her stencil typist about 3 weeks ago, no changes was made on her medications. She report worsening of SOB started about one and a half week ago getting progressively worse, more pronounced over the last 2 days, associated with productive cough of clear phlegm, no fever, she usually feels cold. She denies cp, n/v, no changes in urinary or bowel habits. More details please see pharmacy grad intern note. she is following with pain management clinic, GI, motion designer (For scalp cancer) at [facility] Her director pharmacy services is , development specialist , Senior Network Architect ( Last Echo at August,, EF>65%) Vitals, examination, labs and imaging as above Assessment and plan: Will admitt the patient for telemetry floor -Acute Respiratory distress due to COPD exacerbation Patient did receive one-time dose of IV Solu-Medrol 125 mg in the ED will continue with IV Solu-Medrol 40 mg every 12 hours. pt received doxycycline at ED , will start azithromycin at am for antiinflammatory properties Continue home medications including Advair and Spiriva Continue TRC nebs Sputum and blood cultures Oxygen as needed to keep saturations above 92% -Acute on chronic diastolic heart failure Patient RECEIVED IV Lasix 40 mg in the ED will continue with IV Lasix 20 mg BID starting from am Call cardiology in the morning Monitor strict ins and outs with daily weight checks. -History of paroxysmal atrial fibrillation not on anticoagulation due to cirrhosis and variceal bleed Will continue rate control with sotalol. -History of chronic normocytic anemia: Will continue home dose of ferrous sulfate. -History of chronic back pain Continue fentanyl patch and oxycodone -History of anxiety and depression: Continue home medications. -History of chronic venous insufficiency: She had big skin ulceration on the lateral aspect of left thigh about 5x7 in diameter, with dry edge, no exudation, will place wound consult for that DVT ppx SC HEPARIN full code WANDA HOLLAND, [facility] 01/15/17 0350: Attending MD Review Statement Attending Statement Attending MD Statement: examined this patient, discuss w/resident/PA/NIGHT COURT MAGISTRATE, agreed w/resident/PA/NIGHT COURT MAGISTRATE Attending Assessment/Plan: 71 yo morbidly obese F, with h/o chronic diastolic CHF, CAD, PAF not on AC 2/2 GI bleed, COPD, chronic venous insufficiency c/b ulcers, CKD stage 3A, HTN, cirrhosis c/b varices and GI bleed, chronic pain on opiates, recently admitted to [facility] (Sep 2016) for respiratory failure 2/2 COPD and CHF, is here with dyspnea ('I could not breathe'), cough productive of clear phlegm and chills for past 1 week. She used her nebulizers multiple times without relief. She denies sick contacts or recent travel. She does continue to smoke 5 cigs a day. She reports compliance with lasix and visits the CHF clinic weekly, although her last visit for 3 weeks ago and she denies any recent worsening of LE edema. Of note, recently diagnosed with scalp SCC awaiting excision. Vitals: afebrile, HR 50-60's, BP 138/6, sats 88% RA on ambulation --> 91% RA at rest --> 95% on 3L. JVD+, Chest: reduced air entry with scattered wheezes, bibasilar crackles; anteriorly rhonchi++. LE edema+, chronic stasis. Labs: no leukocytosis, H/H 11.6/33.9, D-dimer 510, BUN 18, creat 1.1 (baseline), troponin <0.01, proBNP 1780. CXR: stable cardiomegaly, mild pulmonary venous congestion/ interstitial edema, no focal consolidation. CTA: no PE, scattered b/l groundglass opacities early infiltrates, interstitial fluid or atelectasis. EKG: SR, nonspecific T wave changes. Echo (2016): EF > 65%, stage 3 diastolic dysfunction, RVSP elevated 37 mmHg. 1. Acute hypoxic respiratory failure 2/2 COPD exacerbation and a component of acute on chronic diastolic heart failure. Tele admit, daily weights, strict I/O' s, IV lasix 20 BID. Patient received lasix 40 mg in ER and diuresed about 1800 mls. Serial EKG and troponin, obtain Echo and Cardio consult (Dr. Ayala). TRC nebs, IV steroids and azithromycin. Sputum cultures. No clear evidence of consolidation, no leukocytosis or fever hence little concern for CAP. Pulm consult (Dr. Sharpe). Smoking cessation counseling, nicotine patch. 2. PAF. Ct. Sotalol. 3. Chronic pain. Ct. Fentanyl patch, oxycodone and gabapentin. 4. Wound consult for left thigh nonhealing ulcer. DVT ppx Hep SC. Full code.
--- NOTE | 2017-01-14 22:06 | NUR ---
PT RESTING COMFORTABLY ON STRETCHER. WILL CONTINUE TO MONITOR.
--- NOTE | 2017-01-14 23:50 | NUR ---
RESP AT BEDSIDE.
--- NOTE | 2017-01-14 23:55 | NUR ---
PER MD MISHRA, HOLD PROVENTIL ORDER IN EMAR. EILEEN HESTER RESP MADE AWARE.
--- NOTE | 2017-01-15 04:06 | NUR ---
PT MEDICATED PER EMAR FOR PAIN.
--- NOTE | 2017-01-15 05:05 | NUR ---
PT UP TO COMMODE.
--- NOTE | 2017-01-15 05:43 | NUR ---
AWOKE PATIENT FROM SOUND SLEEP TO OBTAIN VS AND LABS. PATIENT VSS. REPORTING 5/10 BACK PAIN, POSITIONAL, "FROM SLEEPING IN THIS BED." PATIENT OFFERED ADDITIONAL PILLOWS/ ASSIST TO REPOSITION. PATIENT DECLINES. BLODWORK OBTAINED AND SENT TO LAB (LAV, SST X2, BLUE).
[2017-01-15 05:54] LABS: ABSOLUTE BASOPHIL COUNT 0 /CUMM (0.0-0.2); ABSOLUTE EOSINOPHIL COUNT 0 /CUMM (0.0-0.7); ABSOLUTE GRANULOCYTE CT 2.5 /CUMM (1.4-6.5); ABSOLUTE LYMPH COUNT 0.5 /CUMM (1.2-3.4); ABSOLUTE MONOCYTE COUNT 0 /CUMM (0.10-0.60); BASOPHIL % 0.1 % (0.0-2.0); EOSINOPHIL % 0.1 % (0-5); GRANULOCYTE % 82.4 % (42.2-75.2); HEMATOCRIT 33.4 % (37-47); MEAN CORPUSCULAR HGB 32.5 PG (27.0-31.0); MEAN CORPUSCULAR HGB CONC 33.7 G/DL (33.0-37.0); MEAN CORPUSCULAR VOLUME 96.6 FL (81.0-99.0); MEAN PLATELET VOLUME 7.3 FL (7.4-10.4); PLATELET COUNT 219 /CUMM (130-400); RBC DISTRIBUTION WIDTH 12.4 % (11.5-14.5); RED BLOOD CELL CT 3.46 /CUMM (4.20-5.40); WHITE BLOOD CELL COUNT 3.1 /CUMM (4.8-10.8)
--- NOTE | 2017-01-15 06:22 | NUR ---
0600 EKG DONE AT 0600
[2017-01-15 06:39] VITALS: BP 118/53
--- NOTE | 2017-01-15 07:00 | NUR ---
ASSUMED CARE OF PT, PT RESTING COMFORTABLY AT THIS TIME. BREAKFAST TRAY GIVEN.
--- NOTE | 2017-01-15 07:28 | NUR ---
REPORT GIVEN TO AMOS DUMONT AND AMOS BANEGAS.
--- NOTE | 2017-01-15 08:15 | PN- Housestaff ---
SARA BENTLEY 01/15/17 0814: Subjective Follow-up For: Acute hypoxic respiratory failure secondary to COPD exacerbation CHF exacerbation Chronic pain Left leg chronic nonhealing ulcer Complaints: no complaints Subjective: Patient was seen and examined this morning. She was lying comfortably on bed and admits that she is doing better than yesterday but still feels mildly short of breath along with back pain. Her vital signs were temperature 90.8, pulse 59, respiratory rate 20, blood pressure 113/58 and she is saturating 98% 2 L of nasal cannula Review of Systems Constitutional: Reports: weakness. Denies: chills, diaphoresis. Cardiovascular: Reports: edema. Denies: chest pain. Respiratory: Reports: short of breath, wheezing. Denies: hemoptysis. Gastrointestinal: Denies: abdominal pain, constipation. Genitourinary: Denies: dysuria, frequency. Musculoskeletal: Reports: back pain, muscle pain. Skin: Reports: see HPI, lesions. Objective Last 24 Hrs of Vital Signs/I&O Vital Signs Date Time Temp Pulse Resp B/P B/P Pulse O2 O2 Flow FiO2 Mean Ox Delivery Rate 01/15 1021 98.0 59 20 113/58 98 Nasal 2.0L Cannula 01/15 0639 97.3 54 18 118/53 97 Nasal 2.5L Cannula 01/15 0544 97.3 52 18 113/53 98 Nasal 2.5L Cannula 01/15 0000 97.8 62 20 146/67 96 Nasal 3.0L Cannula 01/14 2009 58 20 138/66 95 Nasal 3.0L Cannula 01/14 1813 98 Nasal 2.0L Cannula 01/14 1735 60 20 150/68 98 Nasal 3.0L Cannula 01/14 1604 98 Nasal 2.0L Cannula 01/14 1441 97.2 66 22 168/89 91 Room Air Intake & Output 01/15 1600 01/15 0800 05/ 0000 Intake Total 240 240 Output Total 1800 Balance 240 -1560 Intake, Oral 240 240 Output, Urine 1800 Physical Exam General Appearance: Alert, Oriented X3, Cooperative Skin: left leg chronic non healing ulcer Cardiovascular: Regular Rate, Normal S1, Normal S2 Lungs: bilateral mild crackles Abdomen: Soft, No Tenderness Extremities: bilateral lower extremity edema and left lower extremity non healing ulcer Current Medications: Current Medications Sig/Barbara Start time Last Medication Dose Route Stop Time Status Admin Acetaminophen 1,000 MG TID 01/15 1000 AC 01/15 PO 1018 Albuterol Sulfate 2 PUF Q6P PRN 01/14 2215 AC INH Albuterol Sulfate 18 ML ONCE ONE 01/14 1815 DC 01/14 INH 01/14 1816 1813 Albuterol Sulfate 3 ML ONCE ONE 01/14 1545 DC 01/14 INH 01/14 1546 1558 Azithromycin 500 MG DAILY 01/15 1000 AC 01/15 Sodium Chloride 250 ML IV 0920 Budesonide/ 2 PUF BID 01/15 1000 AC 01/15 Formoterol Fumarate INH 0920 Clotrimazole 1 PAM BID 01/15 1000 AC 01/15 TOP 0920 Cyanocobalamin 500 MCG DAILY 01/15 1000 AC 01/15 PO 0920 Docusate Sodium 100 MG DAILY 01/15 1000 AC 01/15 PO 0920 Doxycycline Hyclate 100 MG ONCE ONE 01/14 1645 DC 01/14 Sodium Chloride 100 ML IV 01/14 1750 1734 Enoxaparin Sodium 40 MG DAILY 01/15 1000 CAN SC Fentanyl Citrate 25 MCG Q72H 01/14 2200 DC TOP Fentanyl Citrate 25 MCG Q72H 01/14 2045 AC 01/14 TOP 2127 Ferrous Sulfate 325 MG BID 01/15 1000 AC 01/15 PO 0920 Fludrocortisone 100 MCG DAILY 01/15 1000 CAN Acetate PO Furosemide 0 .STK-MED ONE 01/15 0748 DC IV Furosemide 20 MG 7:30 AM, & 4:30 PM 01/15 0730 AC 01/15 IV 0750 Furosemide 0 .STK-MED ONE 01/14 1600 DC IV Furosemide 40 MG ONCE ONE 01/14 1545 DC 01/14 IV 01/14 1546 1606 Gabapentin 200 MG TID 01/15 1000 AC 01/15 PO 0920 Gabapentin 200 MG TID 01/14 2200 DC PO Gabapentin 100 MG ONCE ONE 01/14 1915 DC / PO 01/14 191 2009 Heparin Sodium 5,000 UNIT Q8 01/15 0600 AC (Porcine) SC Hydroxyzine HCl 25 MG DAILY NEEDED PRN 01/14 2215 AC PO Ipratropium [place] 2.5 ML ONCE ONE 01/14 2215 DC INH 01/14 2216 Ipratropium [place] 2.5 ML ONCE ONE 01/14 1545 DC 01/14 INH 05/08 1546 1558 Methylprednisolone 40 MG Q12 01/15 1000 AC 01/15 IV 0920 Methylprednisolone 0 .STK-MED ONE 01/14 1600 DC .ROUTE Methylprednisolone 125 MG ONCE ONE 01/14 1545 DC 01/14 IV 01/14 1546 1601 Omeprazole 0 .STK-MED ONE 01/15 0748 DC PO Omeprazole 40 MG DAILY AC 01/15 0700 AC 01/15 PO 0652 Omeprazole 0 .STK-MED ONE 01/15 0654 DC PO Oxycodone HCl 10 MG TID 01/15 1000 AC 01/15 PO 0940 Oxycodone HCl 0 .STK-MED ONE 01/15 0927 DC PO Oxycodone HCl 0 .STK-MED ONE 01/15 0407 DC PO Oxycodone HCl 5 MG ONCE ONE 01/15 0400 DC 01/15 PO 01/15 0401 0406 Oxycodone HCl 10 MG TID 01/14 220 DC PO Oxycodone HCl 0 .STK-MED ONE 01/14 2010 DC PO Oxycodone HCl 10 MG .[CONE] 01/14 1915 DC 01/14 PO 01/14 2335 2009 Ramelteon 8 MG QPM PRN 01/14 2215 AC PO Rifaximin 550 MG BID 01/15 1000 AC 01/15 PO 0920 Senna 187 MG AT BEDTIME 01/15 2200 AC PO Sotalol HCl 40 MG BID 01/14 220 AC 01/15 PO 0920 Tiotropium [place] 1 PUF DAILY 01/15 1000 AC 01/15 INH 0920 Tizanidine HCl 4 MG QPM 01/15 2200 AC PO Wool Wax Alcohol 1 PAM DAILY 01/15 1000 AC 01/15 TOP 0920 Last 24 Hrs of Lab/Jewel Results Last 24 Hrs of Labs/Mics: Laboratory Tests 01/15/17 0600: Troponin I Cancelled, CBC w Diff NO MAN DIFF REQ, RBC 3.46 L, MCV 96.6, MCH 32.5 H, RDW 12.4, MPV 7.3 L, Gran % 82.4 H, Lymphocytes % 16.0 L, Monocytes % 1.4 L, Eosinophils % 0.1, Basophils % 0.1, Absolute Granulocytes 2.5, Absolute Lymphocytes 0.5 L, Absolute Monocytes 0 L, Absolute Eosinophils 0, Absolute Basophils 0, PUBS MCHC 33.7 05/09/17 0540: Anion Gap 12, Estimated GFR 45 L, BUN/Creatinine Ratio 18.3, Troponin I < 0.01 01/14/17 1830: Lactic Acid Cancelled 01/14/17 1541: Lactic Acid 0.7 01/14/17 1541: Anion Gap 11, Estimated GFR 49 L, BUN/Creatinine Ratio 16.4, Glucose 86, Calcium 8.5, Total Bilirubin 0.6, AST 35, ALT 34, Alkaline Phosphatase 111, Troponin I < 0.01, [id number]-[id number]-Ocskjncgxnq Pept 1780 H, Total Protein 7.1, Albumin 3.6, Globulin 3.5, Albumin/Globulin Ratio 1.0 L, D-Dimer 510 H, CBC w Diff NO MAN DIFF REQ, RBC 3.52 L, MCV 96.2, MCH 33.0 H, RDW 12.7, MPV 8.2, Gran % 61.9 , Lymphocytes % 20.6, Monocytes % 6.7, Eosinophils % 10.0 H, Basophils % 0.8, Absolute Granulocytes 3.1, Absolute Lymphocytes 1.0 L, Absolute Monocytes 0.3, Absolute Eosinophils 0.5, Absolute Basophils 0, PUBS MCHC 34.3 Microbiology 01/14 1604 BLOOD: Blood Culture - RECD 01/14 1541 BLOOD: Blood Culture - RECD 01/14 1530 LOWER RESP: Respiratory Culture - COLB 01/14 153 LOWER RESP: Gram Stain - COLB Assessment/Plan Assessment: Patient is a 71-year-old morbidly obese female with past medical history significant for coronary artery disease, history of chronic diastolic congestive heart failure, paroxysmal atrial fibrillation not on any anticoagulation due to GI bleed in the past, COPD, chronic venous insufficiency with left lower extremity non-healing wound ulcer following up with wound management, CK D stage IIIa, hypertension, history of cirrhosis complicated with devices, chronic back pain on opiates came with chief complaint of shortness of breath and found to be hypoxic as well as pulmonary edema was noticed on CTA. Patient was admitted on telemetry floor and will take care for the following problems Problem #1 acute hypoxic respiratory failure most likely secondary to COPD exacerbation and acute CHF is also contributing. Patient was started on IV Lasix 20 mg twice a day and we will continue IV Lasix for today We will monitor strict ins and outs with daily weights Dr. Ayala is a model builder and is informed Echocardiogram will be ordered after asking cardiology as patient had recent echo in August 2016 We will continue supplemental oxygen to keep her oxygen saturation more than 90% Patient was started on azithromycin on admission but we will discontinue her antibiotics because of very low suspicion of any pneumonia. And we will watch patient off of antibiotics Patient was started on IV steroids we will continue IV steroids for today and will change to by mouth tomorrow Sputum cultures being sent Dr. Sharpe has been informed and we will follow his recommendations Problem #2 history of paroxysmal atrial fibrillation not on any anticoagulation but we will continue sotalol Problem #3 History of chronic back pain. Partially maintaining bearable hot mandible resident tumor but he notes very minute sided patient Belén Nixon couple rehabilitation jargons Marlin routine images of gait, coronary arch We will continue her home medications and we will add [id number] Tylenol Problem #4 chronic left leg nonhealing ulcer Bone consultation been placed and patient will be seen by [facility] wound nurse Pharmacological DVT prophylaxis Patient is full code Heart healthy diet Problem List: 1. COPD exacerbation 2. CHF exacerbation Pain Ratin Pain Location: back pain Pain Goal: Remain pain free Pain Plan: tylenol oxycodon Tomorrow's Labs & Rationales: cbc bep CANDICE HOLLAND,JONO 01/15/17 1615: Attending MD Review Statement Attending Statement Attending MD Statement: examined this patient, discuss w/resident/PA/EDGER TECHNICIAN, agreed w/resident/PA/EDGER TECHNICIAN, reviewed EMR data (avail), discussed with nursing, reviewed images, amended to note Attending Assessment/Plan: Patient seen and examined, she was coughing pretty bad when I saw her. Later on she was feeling slightly better. Patient is admitted with acute hypoxic rest today failure likely secondary to a combination off mild acute on chronic diastolic heart failure as well as acute COPD exacerbation and acute bronchitis. Continue steroids, Lasix as well as antibiotics. Follow-up on sputum culture. Continue to monitor daily intake and output as well as daily weights. Please follow for the cardiology and pulmonology recommendations. Continue to [facility] [place]. DVT prophylaxis: Heparin subcutaneous.
--- NOTE | 2017-01-15 10:20 | NUR ---
PT ON MONITOR, NO COMPLAINTS AT THIS TIME, TOOK AM MEDS AND CREAMS APPLIED ORDERED.
--- NOTE | 2017-01-15 12:15 | Cons- Pulmonary ---
General Information and HPI Consulting Request Date of Consult: 01/15/17 Requested By: MED TEAM History of Present Illness: Ms. Avial is a 71 year old female with past medical history significant for COPD not on home oxygen, HFPEF (stage 3 diastolic dysfunction, EF>65%), A.fib not on anticoagulation because of Hx GI bleeding, squamous cell carcinoma of scalp scheduled for excision Saturday01/18/17, hypertension, chronic venous insufficiency, fibromyalgia, arthritis who presented to ED with chief complaint of shortness of breath. Patient was recently discharged 10/03/16 from [facility] after she was treated for COPD and CHF exacerbation. Patient reported doing fine after discharge and she was following with CHF clinic every week, last visit was 3 weeks ago as her status was stable and was informed to come in one month. One week ago patient started to have flu symptoms of arthralgia, myalgia, chills, productive cough of clear sputum denied any blood, denied fever, sore throat, nasal congestion or ear pain. Patient noticed worsening of shortness of breath along with the onset of these symptoms and today she decided to come to ED for evaluation. She denied any recent changes of her medication including Lasix 20 mg PO daily. She is a current smoker, smokes 5 cigarettes per day, no history of alcohol or ilict drugs. She also reported paroxysmal nocturnal dyspnea over the last 2 days despite stable lower extremity swelling, patient used to sleep on at least 3 pillows or a recliner because of fibromyalgia and arthralgia and used to wake up multiple times because of shoulder pain. Patient received flu vaccine and pneumonia vaccine this year. Allergies/Medications Allergies: Coded Allergies: azithromycin (Mild, RASH, ITCHY 09/28/16) Penicillins (ITCHY RASH 09/28/16) Sulfa (Sulfonamide Antibiotics) (ITCHY RASH 09/28/16) adhesive tape (ITCHY RASH 09/28/16) amantadine (ITCHY RASH 09/28/16) cefadroxil (ITCHY RASH 09/28/16) codeine (ITCHY RASH 09/28/16) erythromycin base (ITCHY RASH 09/28/16) sulfadiazine (ITCHY RASH 09/28/16) latex (Intermediate, CONTACT DERMATITIS 04/15/16) Home Med List: Albuterol Sulfate (Proventil Hfa) 6.7 GM HFA.AER.AD 2 PUF INH Q6 PRN wheezinG (Reported) Clotrimazole/Betamethasone Dip (Clotrimazole-Betamethasone Crm) 1 %-0.05 % CREAM..G. 1 PAM TOP PRN SKIN (Reported) apply to affected area(s) Cyanocobalamin (Vitamin B-12) (Vitamin B-12) 500 MCG TABLET 2 TAB PO DAILY SUPPLEMENT (Reported) Docusate Sodium (Colace) 100 MG CAPSULE 1 CAP PO DAILY STOOL SOFTENER ( Reported) Ergocalciferol (Vitamin D2) (Vitamin D2) 50,000 UNIT CAPSULE 1 CAP PO Q30D SUPPLEMENT (Reported) Estrogens, Conjugated (Premarin) 30 GM CREAM.APPL 1 PAM TOP TID women health (Reported) Fentanyl 1 EACH PATCH.TD72 25 MCG TOP Q72H Pain Apply to right hip, follow up with your pain doctor Ferrous Sulfate 325 MG TABLET 1 TAB PO BID iron (Reported) Fluticasone/Salmeterol (Advair 250-50 Diskus) 1 EACH BLST.W.DEV 1 PUF INH BID lung (Reported) Furosemide 40 MG TABLET 0.5 TAB PO DAILY DIURETIC (Reported) Gabapentin (Neurontin) 100 MG CAPSULE 2 CAP PO TID pain (Reported) Hydroxyzine HCl 50 MG TABLET 0.5 TAB PO PRN ITCHING (Reported) Ipratropium/Albuterol Sulfate (Iprat-Albut 0.5-3(2.5) MG/3 Ml) 3 ML AMPUL.NEB 3 ML INH/MAGO Q6 PRN shortness of breath (Reported) Mineral Oil/Petrolatum,White (Eucerin Creme) 120 GM CREAM..G. 1 PAM TOP DAILY dry skin (Reported) Oxycodone HCl 10 MG TABLET 1 TAB PO TID PAIN (Reported) Pantoprazole Sodium (Protonix) 40 MG TABLET.DR 1 TAB PO DAILY stomach ( Reported) Petrolatum,White (Aquaphor) 396 GM OINT...G. 1 PAM TOP DAILY skin lesion apply on left leg Ramelteon (Rozerem) 8 MG TABLET 1 TAB PO QPM PRN SLEEP Take 30 minutes before bedtime for sleep. Rifaximin (Xifaxan) 550 MG TABLET 1 TAB PO BID diarrhea (Reported) Saccharomyces Boulardii (Florastor) (Unknown Strength) CAPSULE (Unknown Dose) PO DAILY PROBIOTIC (Reported) Sennosides (Senna) 8.6 MG TABLET 1 TAB PO AT BEDTIME constipation (Reported) Sotalol HCl (Sotalol) 80 MG TABLET 0.5 TAB PO BID heart (Reported) Tiotropium [place] (Spiriva) 18 MCG CAP.W.DEV 1 CAP INH DAILY lung (Reported) Tizanidine HCl 4 MG TABLET 1 TAB PO QPM sleep (Reported) Review of Systems Review of Systems Constitutional: Reports: see HPI. Past History Travel History Traveled to [place] past 21 day No Medical History Neurological: migraine EENT: NONE Cardiovascular: AFIB, CAD, chronic venous insuff, diastolic CHF, hypertension, hyperlipidemia, PVD, descending aortic artery aneurysm Respiratory: COPD, JOSSUE Gastrointestinal: GERD, hiatal hernia, HX OF GI BLEED HX OF SBO Hepatic: cirrhosis, SBP Renal: NONE Musculoskeletal: chronic back pain, disk herniation, fibromyalgia, osteoarthritis Psychiatric: insomnia Endocrine: diabetes, osteoporosis Blood Disorders: anemia Cancer(s): HX OF ORAL CANCER INFERTILITY NURSE/Reproductive: HYSTERECTOMY Surgical History Surgical History: cholecystectomy, hysterectomy, knee replacement, cervical disc surgery ulnar surgery resection of GI carcinoma left heel spur surgery Family History Relations & Conditions If Any: FATHER (Throat cancer and smoker). Psychosocial History Where Do You Live? Home Who Do You Live With? Brother Lives Below her Services at Home: Nursing Primary Language: Swedish Smoking Status: Current Everyday Smoker ETOH Use: denies use Illicit Drug Use: denies illicit drug use Functional Ability ADLs Independent: dressing, eating, toileting, bathing. Ambulation: cane Exam & Diagnostic Data Last 24 Hrs of Vital Signs/I&O Vital Signs Date Time Temp Pulse Resp B/P B/P Pulse O2 O2 Flow FiO2 Mean Ox Delivery Rate 01/15 1021 98.0 59 20 113/58 98 Nasal 2.0L Cannula 01/15 0639 97.3 54 18 118/53 97 Nasal 2.5L Cannula 01/15 0544 97.3 52 18 113/53 98 Nasal 2.5L Cannula 01/15 0000 97.8 62 20 146/67 96 Nasal 3.0L Cannula 01/14 2009 58 20 138/66 95 Nasal 3.0L Cannula 01/14 1813 98 Nasal 2.0L Cannula 01/14 1735 60 20 150/68 98 Nasal 3.0L Cannula 05/08 1604 98 Nasal 2.0L Cannula 01/14 1441 97.2 66 22 168/89 91 Room Air Intake & Output 01/15 1600 01/15 0800 01/15 0000 Intake Total 240 240 Output Total 1800 Balance 240 -1560 Intake, Oral 240 240 Output, Urine 1800 Last 48 Hrs of Labs/Jewel: Laboratory Tests 01/15/17 0600: Troponin I Cancelled, CBC w Diff NO MAN DIFF REQ, RBC 3.46 L, MCV 96.6, MCH 32.5 H, RDW 12.4, MPV 7.3 L, Gran % 82.4 H, Lymphocytes % 16.0 L, Monocytes % 1.4 L, Eosinophils % 0.1, Basophils % 0.1, Absolute Granulocytes 2.5, Absolute Lymphocytes 0.5 L, Absolute Monocytes 0 L, Absolute Eosinophils 0, Absolute Basophils 0, PUBS MCHC 33.7 01/15/17 0540: Anion Gap 12, Estimated GFR 45 L, BUN/Creatinine Ratio 18.3, Troponin I < 0.01 01/14/17 1830: Lactic Acid Cancelled 01/14/17 1541: Lactic Acid 0.7 01/14/17 1541: Anion Gap 11, Estimated GFR 49 L, BUN/Creatinine Ratio 16.4, Glucose 86, Calcium 8.5, Total Bilirubin 0.6, AST 35, ALT 34, Alkaline Phosphatase 111, Troponin I < 0.01, [id number]-K-Zpkzjjsqxco Pept 1780 H, Total Protein 7.1, Albumin 3.6, Globulin 3.5, Albumin/Globulin Ratio 1.0 L, D-Dimer 510 H, CBC w Diff NO MAN DIFF REQ, RBC 3.52 L, MCV 96.2, MCH 33.0 H, RDW 12.7, MPV 8.2, Gran % 61.9 , Lymphocytes % 20.6, Monocytes % 6.7, Eosinophils % 10.0 H, Basophils % 0.8, Absolute Granulocytes 3.1, Absolute Lymphocytes 1.0 L, Absolute Monocytes 0.3, Absolute Eosinophils 0.5, Absolute Basophils 0, PUBS MCHC 34.3 Assessment/Plan Impression/Plan: Physical Exam General Appearance Alert, Oriented X3, Cooperative, No Acute Distress Skin No Rashes, Skin laceration om lateral serface of left knee with erythema, no discharge or tenderness Skin Temp/Moisture Exam: Warm/Dry HEENT Atraumatic, PERRLA, EOMI, Mucous Membr. moist/pink, skin lesion over left side of frontal bone of cranial vault Neck Supple, JVP elevated Lymphatic mo cervical lymphadenopathy Cardiovascular Regular Rate, Normal S1, Normal S2, No Murmurs Lungs bilateral decrease air entery and basal course crackles. fine inspiratory wheeze Abdomen Normal Bowel Sounds, Soft, No Tenderness, No Hepatospenomegaly Neurological Normal Gait, Normal Speech, Strength at 5/5 X4 Ext, Normal Tone, Sensation Intact, Cranial Nerves 3-12 NL, Reflexes 2+ Extremities No Clubbing, No Cyanosis, Normal Pulses, BL LE pedal edema +1, erythema chronic, no weepimg or tenderness CHEST CT IMPRESSION: 1. No central or segmental pulmonary emboli. 2. Scattered bilateral groundglass opacities, right greater than left. This could represent early infiltrates, prominent interstitial fluid indicating fluid overload, or patchy atelectasis. Correlation for infection or fluid overload is recommended. 3. Cardiomegaly. 4. Scattered, nonspecific mediastinal lymph nodes, not significantly changed since the chest CT dated 04/30/2017. VTE: Negative. This is a morbidly obese lady with JOSSUE non compliant (with recent wt loss) with significant ongoing smoking history, mild obstructive lung disease by pfts in 2011, previous history of mediastinal lymphadenopathy with biopsy suggestive of silica exposure may have mild silicosis, chronic lung disease, severe diastolic dysfunction with pulmonary hypertension secondary to diastolic dysfunction, chronic lower extremity edema with vascular insufficiency with recurrent cellulitis, dilated aorta, now comes here with Cough wheezing shortness of breath in a lady with obstructive lung disease with wheezing consistent with * Patient has mild obstructive lung disease from previous PFTs but she continues to smoke and she has not had any PFTs in the recent past. Has probably a viral illness with mild wheezing * SIg diastolic chf as noted in the ct * Previous history of silica exposure with stable mediastinal lymphadenopathy with previous biopsy suggestive of silica exposure with lymphadenopathy. No clinical evidence suggestive of significant worsening of silicosis. * Severe restrictive heart disease with normal ejection fraction with acute congestive diastolic heart failure * Paroxysmal atrial fibrillation not on anticoagulation therapy. * Chronic anemia with chronic kidney disease. * Chronic lower extremity venous insufficiency with recurrent cellulitis. * Anxiety and depression. * Significant obstructive sleep apnea in the past, noncompliant with her CPAP. ( However patient has weight loss in the recent past.) * Significant tracheobronchomalacia due to recurrent bronchitis * Chronic pain syndrome with probable fibromyalgia with previous vasculitis workup negative. Pt does have jossue and high risk for hypercarbia * Insomnia, IBS, depression and anxiety relatively stable. Pt on Rifaxamin * Mild to moderate pulmonary hypertension related to obstructive sleep apnea and severe diastolic dysfunction. Patient does have stage III diastolic dysfunction with restrictive filling pattern in the recent echocardiogram. * Ongoing cigarette smoking with chronic lung disease. Patient is high risk for malignancy. * Aortic dilatation. RECOMMENDATION * Wean steroids CHange to 40 qd and wean in 8 days * Continue diuresis * Smoking cessation counseling was done. * DC abx * Sputum culture * Watch her renal function. * Continue her nebulizer therapy, albuterol as needed. * Continue Spiriva. * Continue her Symbicort for now. Will follow Consult Acknowledgment - Thank you for your consult request.
--- NOTE | 2017-01-15 13:30 | Cons- Cardiology ---
General Information and HPI Consulting Request Date of Consult: 01/15/17 Requested By: WANDA HOLLAND,ASTON Reason for Consult: Shortness of breath. Source of Information: patient, old records Exam Limitations: no limitations History of Present Illness: Ms. 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, obstructive sleep apnea, hypertension, dyslipidemia, diabetes mellitus, dilatation of the ascending aorta, chest pain syndrome (normal cardiac catheterization January 2007; negative stress test February 2009 and December 2011), paroxysmal atrial fibrillation on anti-arrhythmic therapy with sotalol without anticoagulation (vide infra), left ventricular hypertrophy and previous diastolic heart failure, as well as, chronic bilateral lower extremity edema (right greater than left) with recurrent cellulitis who presented with a 3-4 day history of increasing shortness of breath, orthopnea, paroxysmal nocturnal dyspnea, and cough with associated clear sputum and who was found to have evidence of heart failure on her CXR. Her last echocardiogram was performed on 08/20/2016 and revealed; mild left ventricular dilatation, mild concentric left ventricular hypertrophy, normal left ventricular ejection fraction visually estimated at greater than 65%, mildly increased resting left ventricular outflow tract velocity (1.4 m/s), a restrictive left ventricular inflow pattern for age consistent with stage 3 diastolic dysfunction, mild right ventricular dilatation, mild atrial dilatation , trace to mild mitral regurgitation, no hemodynamically significant aortic stenosis, trace aortic regurgitation, trace tricuspid regurgitation, mild pulmonary hypertension, trace pulmonic regurgitation, mildly dilated proximal ascending aorta (tube), and a dilated inferior vena cava. After her last hospitalization we had planned to perform an outpatient Dobutamine stress test to exclude significant ischemia as a contributing factor to her last episode of diastolic dysfunction, but the patient had not felt well enough to have this performed. The issue of anticoagulation was discussed with her supervisor coin machine during a previous hospitalization and he felt that she was not a good candidate for anticoagulation given her GI issues. Allergies/Medications Allergies: Coded Allergies: azithromycin (Mild, RASH, ITCHY 09/28/16) Penicillins (ITCHY RASH 09/28/16) Sulfa (Sulfonamide Antibiotics) (ITCHY RASH 09/28/16) adhesive tape (ITCHY RASH 09/28/16) amantadine (ITCHY RASH 09/28/16) cefadroxil (ITCHY RASH 09/28/16) codeine (ITCHY RASH 09/28/16) erythromycin base (ITCHY RASH 09/28/16) sulfadiazine (ITCHY RASH 09/28/16) latex (Intermediate, CONTACT DERMATITIS 04/15/16) Home Med List: Albuterol Sulfate (Proventil Hfa) 6.7 GM HFA.AER.AD 2 PUF INH Q6 PRN wheezinG (Reported) Clotrimazole/Betamethasone Dip (Clotrimazole-Betamethasone Crm) 1 %-0.05 % CREAM..G. 1 PAM TOP PRN SKIN (Reported) apply to affected area(s) Cyanocobalamin (Vitamin B-12) (Vitamin B-12) 500 MCG TABLET 2 TAB PO DAILY SUPPLEMENT (Reported) Docusate Sodium (Colace) 100 MG CAPSULE 1 CAP PO DAILY STOOL SOFTENER ( Reported) Ergocalciferol (Vitamin D2) (Vitamin D2) 50,000 UNIT CAPSULE 1 CAP PO Q30D SUPPLEMENT (Reported) Estrogens, Conjugated (Premarin) 30 GM CREAM.APPL 1 PAM TOP TID women health (Reported) Fentanyl 1 EACH PATCH.TD72 25 MCG TOP Q72H Pain Apply to right hip, follow up with your pain doctor Ferrous Sulfate 325 MG TABLET 1 TAB PO BID iron (Reported) Fluticasone/Salmeterol (Advair 250-50 Diskus) 1 EACH BLST.W.DEV 1 PUF INH BID lung (Reported) Furosemide 40 MG TABLET 0.5 TAB PO DAILY DIURETIC (Reported) Gabapentin (Neurontin) 100 MG CAPSULE 2 CAP PO TID pain (Reported) Hydroxyzine HCl 50 MG TABLET 0.5 TAB PO PRN ITCHING (Reported) Ipratropium/Albuterol Sulfate (Iprat-Albut 0.5-3(2.5) MG/3 Ml) 3 ML AMPUL.NEB 3 ML INH/MAGO Q6 PRN shortness of breath (Reported) Mineral Oil/Petrolatum,White (Eucerin Creme) 120 GM CREAM..G. 1 PAM TOP DAILY dry skin (Reported) Oxycodone HCl 10 MG TABLET 1 TAB PO TID PAIN (Reported) Pantoprazole Sodium (Protonix) 40 MG TABLET.DR 1 TAB PO DAILY stomach ( Reported) Petrolatum,White (Aquaphor) 396 GM OINT...G. 1 PAM TOP DAILY skin lesion apply on left leg Ramelteon (Rozerem) 8 MG TABLET 1 TAB PO QPM PRN SLEEP Take 30 minutes before bedtime for sleep. Rifaximin (Xifaxan) 550 MG TABLET 1 TAB PO BID diarrhea (Reported) Saccharomyces Boulardii (Florastor) (Unknown Strength) CAPSULE (Unknown Dose) PO DAILY PROBIOTIC (Reported) Sennosides (Senna) 8.6 MG TABLET 1 TAB PO AT BEDTIME constipation (Reported) Sotalol HCl (Sotalol) 80 MG TABLET 0.5 TAB PO BID heart (Reported) Tiotropium [place] (Spiriva) 18 MCG CAP.W.DEV 1 CAP INH DAILY lung (Reported) Tizanidine HCl 4 MG TABLET 1 TAB PO QPM sleep (Reported) Review of Systems Review of Systems: A 14 point system review was obtained and was noncontributory, other than as above. 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 Psychosocial History Where Do You Live? Home Who Do You Live With? Brother Lives Below her Services at Home: Nursing Primary Language: Djib[place]ian Smoking Status: Current Everyday Smoker ETOH Use: denies use Illicit Drug Use: denies illicit drug use Functional Ability ADLs Independent: dressing, eating, toileting, bathing. Ambulation: cane ECHO Results (as available) Report: CONCLUSIONS Mild left ventricular dilatation. Mild concentric left ventricular hypertrophy. Normal left ventricular ejection fraction visually estimated at greater than 65%. Restrictive filling pattern of the left ventricle for age (stage 3 diastolic dysfunction). Mildly increased resting left ventricular outflow tract velocity (1.4 m/s). Mild right ventricular dilatation. Mild atrial dilatation. Trace to mild mitral regurgitation. No hemodynamically significant aortic stenosis. Trace aortic regurgitation. Trace tricuspid regurgitation. Mild pulmonary hypertension. Trace pulmonic regurgitation. Mildly dilated proximal ascending aorta (tube). Dilated inferior vena cava. Exam & Diagnostic Data Vital Signs and I&O Vital Signs Date Time Temp Pulse Resp B/P B/P Pulse O2 O2 Flow FiO2 Mean Ox Delivery Rate 01/15 1021 98.0 59 20 113/58 98 Nasal 2.0L Cannula 01/15 0639 97.3 54 18 118/53 97 Nasal 2.5L Cannula 01/15 0544 97.3 52 18 113/53 98 Nasal 2.5L Cannula 01/15 0000 97.8 62 20 146/67 96 Nasal 3.0L Cannula 01/14 2009 58 20 138/66 95 Nasal 3.0L Cannula 01/14 1813 98 Nasal 2.0L Cannula 01/14 1735 60 20 150/68 98 Nasal 3.0L Cannula 01/14 1604 98 Nasal 2.0L Cannula 01/14 1441 97.2 66 22 168/89 91 Room Air Intake & Output 01/15 1600 01/15 0800 01/15 0000 01/14 1600 01/14 0801/14 0000 Intake Total 240 240 Output Total 1800 Balance 240 -1560 Intake, Oral 240 240 Output, Urine 1800 Patient 248 lb Weight Physical Exam: well-developed, obese elderly female in no acute distress with nasal oxygen in place. Vital signs: See above. HEENT: Normocephalic, atraumatic, EOMI, mucous membranes. Neck: No JVD, no bruits. Lungs: Decreased breath sounds bilaterally, occasional rhonchi, bibasilar crackles. Heart: S1, S2 (regular) with grade 1-2/6 systolic ejection type murmur best heard in the bases. No gallop or rub appreciated. PMI not well felt. abdomen: Soft, nontender, positive bowel sounds. Extremities: 1+ right and trace left lower graham edema. Labs/Jewel Results: Laboratory Tests 01/15 01/15 01/14 0600 0540 1830 Chemistry Sodium (137 - 145 mmol/L) 140 Potassium (3.5 - 5.1 mmol/L) 4.1 Chloride (98 - 107 mmol/L) 100 Carbon Dioxide (22 - 30 mmol/L) 28 Anion Gap (5 - 16) 12 BUN (7 - 17 mg/dL) 22 H Creatinine (0.5 - 1.0 mg/dL) 1.2 H Estimated GFR (>60 ml/min) 45 L BUN/Creatinine Ratio (7 - 25 %) 18.3 Lactic Acid Cancelled Troponin I (< 0.11 ng/ml) Cancelled < 0.01 Hematology CBC w Diff NO MAN DIFF REQ WBC (4.8 - 10.8 /CUMM) 3.1 L RBC (4.20 - 5.40 /CUMM) 3.46 L Hgb (12.0 - 16.0 G/DL) 11.3 L Hct (37 - 47 %) 33.4 L MCV (81.0 - 99.0 FL) 96.6 MCH (27.0 - 31.0 PG) 32.5 H RDW (11.5 - 14.5 %) 12.4 Plt Count (130 - 400 /CUMM) 219 MPV (7.4 - 10.4 FL) 7.3 L Gran % (42.2 - 75.2 %) 82.4 H Lymphocytes % (20.5 - 51.1 %) 16.0 L Monocytes % (1.7 - 9.3 %) 1.4 L Eosinophils % (0 - 5 %) 0.1 Basophils % (0.0 - 2.0 %) 0.1 Absolute Granulocytes (1.4 - 6.5 /CUMM) 2.5 Absolute Lymphocytes (1.2 - 3.4 /CUMM) 0.5 L Absolute Monocytes (0.10 - 0.60 /CUMM) 0 L Absolute Eosinophils (0.0 - 0.7 /CUMM) 0 Absolute Basophils (0.0 - 0.2 /CUMM) 0 PUBS MCHC (33.0 - 37.0 G/DL) 33.7 05/08 05/08 1541 1541 Chemistry Sodium (137 - 145 mmol/L) 138 Potassium (3.5 - 5.1 mmol/L) 4.0 Chloride (98 - 107 mmol/L) 100 Carbon Dioxide (22 - 30 mmol/L) 27 Anion Gap (5 - 16) 11 BUN (7 - 17 mg/dL) 18 H Creatinine (0.5 - 1.0 mg/dL) 1.1 H Estimated GFR (>60 ml/min) 49 L BUN/Creatinine Ratio (7 - 25 %) 16.4 Glucose (65 - 99 mg/dL) 86 Lactic Acid (0.7 - 2.1 mmol/L) 0.7 Calcium (8.4 - 10.2 mg/dL) 8.5 Total Bilirubin (0.2 - 1.3 mg/dL) 0.6 AST (14 - 36 U/L) 35 ALT (9 - 52 U/L) 34 Alkaline Phosphatase (<127 U/L) 111 Troponin I (< 0.11 ng/ml) < 0.01 Dby-R-Acopdtaledz Pept (<125 pg/mL) 1780 H Total Protein (6.3 - 8.2 g/dL) 7.1 Albumin (3.5 - 5.0 g/dL) 3.6 Globulin (1.9 - 4.2 gm/dL) 3.5 Albumin/Globulin Ratio (1.1 - 2.2 %) 1.0 L Coagulation D-Dimer (70 - 232 ng/ml) 510 H Hematology CBC w Diff NO MAN DIFF REQ WBC (4.8 - 10.8 /CUMM) 5.0 RBC (4.20 - 5.40 /CUMM) 3.52 L Hgb (12.0 - 16.0 G/DL) 11.6 L Hct (37 - 47 %) 33.9 L MCV (81.0 - 99.0 FL) 96.2 MCH (27.0 - 31.0 PG) 33.0 H RDW (11.5 - 14.5 %) 12.7 Plt Count (130 - 400 /CUMM) 242 MPV (7.4 - 10.4 FL) 8.2 Gran % (42.2 - 75.2 %) 61.9 Lymphocytes % (20.5 - 51.1 %) 20.6 Monocytes % (1.7 - 9.3 %) 6.7 Eosinophils % (0 - 5 %) 10.0 H Basophils % (0.0 - 2.0 %) 0.8 Absolute Granulocytes (1.4 - 6.5 /CUMM) 3.1 Absolute Lymphocytes (1.2 - 3.4 /CUMM) 1.0 L Absolute Monocytes (0.10 - 0.60 /CUMM) 0.3 Absolute Eosinophils (0.0 - 0.7 /CUMM) 0.5 Absolute Basophils (0.0 - 0.2 /CUMM) 0 PUBS MCHC (33.0 - 37.0 G/DL) 34.3 Diagnostic Data EKG Results (01/15/2017) sinus rhythm, left atrial abnormality and mild IVCD, nondiagnostic anterior T-wave abnormalities. No significant change from previous tracing (04/2017). CXR Results CXR (01/14/20170: Stable mild cardiomegaly. Mild pulmonary venous congestion/interstitial edema. No overt pulmonary edema. No focal pulmonary consolidation. Other Results Chest CTA (01/14/2017): 1. No central or segmental pulmonary emboli. 2. Scattered bilateral groundglass opacities, right greater than left. This could represent early infiltrates, prominent interstitial fluid indicating fluid overload, or patchy atelectasis. Correlation for infection or fluid overload is recommended. 3. Cardiomegaly. 4. Scattered, nonspecific mediastinal lymph nodes, not significantly changed since the chest CT dated 04/30/2017. VTE: Negative. Assessment/Plan Assessment/Plan 71 y o f w/ a hx of obesity, longstanding tob use, COPD, suspected pul silicosis , JOSSUE, HTN, HLD, DM, dilatation of the asc aorta, CP syndrome (normal cardiac cath 01/2007; neg stress test 02/2009 and 12/2011), PAF on sotalol w/o anticoagulation secondary to GI bleeding, LVH with stage 3 diastolic dysfunction , and HFpEF, as well as, chronic bilateral LE edema (R>L) with recurrent cellulitis who presented with shortness of breath and who was found to have evidence of HF on her CXR. Recommendations: * Telemetry admission, follow-up electrocardiograms, follow up troponins. * Strict inputs and outputs, daily weights, etc. * Continue IV Furosemide 20 mg twice daily and reassess the need for further IV diuresis in the morning. * Repeat CXR in a.m. * Once she is out of heart failure, would recommend a Dobutamine stress test to exclude significant ischemia as a major contributing factor to her presentation. * Continue Sotalol 40 mg twice daily with close attention to heart rate, which is presently acceptable. * The role of anticoagulation has been addressed on a previous hospitalization with her supervisor coin machine and the consensus has been that anticoagulation should not be restarted. * Check magnesium, free T4, TSH, and glycosylated hemoglobin A1c. * Continue oxygen, TRC, steroids, antimicrobial therapy, etc. as per pulmonary medicine. * DVT prophylaxis. Further recommendations will follow, Thank you. Consult Acknowledgment - Thank you for your consult request.
--- NOTE | 2017-01-15 15:50 | NUR ---
PT REQUESTING A DIFFERENT MEAL TRAY BECAUSE IT WAS THE SAME MEAL SHE HAS ALREADY BEEN SERVED. NEW ORDER PLACED WITH DINING SERVICES.
--- NOTE | 2017-01-15 16:16 | NUR ---
pt admitted to room 176-1
--- NOTE | 2017-01-15 16:19 | NUR ---
MEAL TRAY GIVEN PT SITTING ON SIDE OF BED, O2 TAKEN OFF TO EAT
--- NOTE | 2017-01-15 16:59 | NUR ---
PT TO BEDSIDE COMMODE
--- NOTE | 2017-01-15 17:08 | NUR ---
REPORT TO SHEILA. DISTRIBUTION CALLED,.
--- NOTE | 2017-01-15 17:09 | NUR ---
[facility] AT [facility].
--- NOTE | 2017-01-15 17:55 | NUR ---
WOUND CARE: REQUESTED BY ER STAFF TO EVALUATE PT FOR SKIN ALTERATION PRESENT ON ADMISSION - PT KNOWN TO THIS MD SENIOR RESEARCH SCIENTIST [facility] IN PAST - HX OBTAINED FROM PT - LEFT LATERAL LEG PRESENTS WITH A FULL THICKNESS WOUND ANTERIORLY TO POPLITEAL - 10X4 CM FULL THICKNESS WOUND WITH DRY DEEP DERMAL LAYER EXPOSED - MINIMAL DNRG - ANTERIOR KNEE MULTIPLE OPEN LESIONS NOTED - PT REPORTS ALL OF THESE WOUNDS ARE SELF INFLICTED - PT STATED THAT 'WOUND BEGINS TO HEAL, IT SCABS, AND THEN IT BOTHERS ME SO I PICK THE SCABS AGAIN AND MAKE IT BIGGER' - PT DENIES PAIN OR PRURITIS - SLIGHTLY ERYTHEMATOUS SURROUNDING, ALTHOUGH MAYBE SECONDARY TO CHRONIC INFLAMMATORY STATE - NICOLE LEGS EDEMATOUS WELL PT EDUCATED RE: INFECTION, DM, CIRCULATION, AND SEVERITY OF ACTIONS AND STATED AN UNDERSTANDING IMPRESSION: SELF INFLICTED WOUNDS RECOMMEDNATION: CLEANSE ALL WOUNDS WITH NS FB BACITRACIN, XEROFORM, WEBRIL, AND KERLIX DAILY - PT MAY BENEFIT FROM PSYCH EVAL WOUNDS ARE SELF INFLICTED, ALTHOUGH PT KNOWN TO THIS MD SENIOR RESEARCH SCIENTIST DOES NOT APPEAR TO BE INTENTIONALLY CAUSING SELF HARM - WOUND CONSULT WITH DR COOK PLEASE - STRICT LEG ELEVATION
[2017-01-15 18:28] VITALS: BP 108/50
[2017-01-15 23:00] VITALS: BP 118/62
--- NOTE | 2017-01-16 06:47 | PN- Housestaff ---
See Addendum Subjective Follow-up For: CHF exacerbation COPD exacerbation Hypoxic respiratory failure Iron deficiency anemia Complaints: Mild shortness of breath with exertion Tele-Events Since Last Visit: Normal sinus bradycardia. Heart rate in the 40s Subjective: Interval history: This morning Mrs. Avila reports noticeable improvement in her breathing mostly with less exertional shortness of breath. Blood pressure late yesterday evening was 108/54 which sotalol was held. She denies any headaches, dizziness, chest pain, palpitations, worsening shortness of breath, sore throat, fevers, chills, abdominal pain or worsening swelling in her lower extremities. Review of Systems Constitutional: Reports: see HPI. EENTM: Reports: no symptoms. Cardiovascular: Reports: no symptoms. Respiratory: Reports: see HPI. Gastrointestinal: Reports: no symptoms. Musculoskeletal: Reports: no symptoms. Objective Last 24 Hrs of Vital Signs/I&O Vital Signs Date Time Temp Pulse Resp B/P B/P Pulse O2 O2 Flow FiO2 Mean Ox Delivery Rate 01/16 0000 Nasal 2.5L Cannula 01/15 2300 97.9 50 22 118/62 96 Nasal 2.5L Cannula 01/15 1828 98.5 56 18 108/50 97 Nasal 2.5L Cannula 01/15 1800 Nasal 2.5L Cannula 01/15 1518 98.4 53 20 113/54 100 Nasal 2.5L Cannula 01/15 1021 98.0 59 20 113/58 98 Nasal 2.0L Cannula Intake & Output 01/16 0800 01/16 0000 01/15 1600 Intake Total 400 1250 Output Total 550 1000 Balance -150 250 Intake, IV 0 250 Intake, Oral 400 1000 Number 0 1 Bowel Movements Output, Urine 550 1000 Patient 239 lb Weight Weight Chair scale Measurement Method Physical Exam General Appearance: Alert, Cooperative, No Acute Distress Skin: CHronic venous stasis changes on BL LE distal aspects. Left knee cover in a clean BLADIMIR wrap at this time Skin Temp/Moisture Exam: Warm/Dry HEENT: EOMI, Mucous Membr. moist/pink Cardiovascular: Regular Rate, Normal S1, Normal S2, Distant heart sounds. Bradycardic Lungs: Normal Air Movement, Expiratory wheezes present BL. Mild inspiratory and expiratory stridor present in lower lung magallon Abdomen: Normal Bowel Sounds, Soft, No Tenderness Extremities: Normal Pulses, 2+ pitting edema BL LE Vascular: Pulses Symmetrical Current Medications: Current Medications Sig/Barbara Start time Last Medication Dose Route Stop Time Status Admin Acetaminophen 0 .STK-MED ONE 01/15 1657 DC PO Acetaminophen 1,000 MG TID 01/15 1000 AC 01/15 PO 2123 Albuterol Sulfate 2 PUF Q6P PRN 01/14 2215 AC INH Azithromycin 500 MG DAILY 01/15 1000 DC 01/15 Sodium Chloride 250 ML IV 0920 Budesonide/ 2 PUF BID 01/15 1000 AC 01/15 Formoterol Fumarate INH 2122 Clotrimazole 1 PAM BID 01/15 1000 AC 01/15 TOP 212 Cyanocobalamin 500 MCG DAILY 01/15 1000 AC 01/15 PO 0920 Docusate Sodium 100 MG DAILY 01/15 1000 AC 01/15 PO 0920 Fentanyl Citrate 25 MCG Q72H 01/14 2045 AC 01/14 TOP 2126 Ferrous Sulfate 325 MG BID 01/15 1000 AC 01/15 PO 2123 Furosemide 0 .STK-MED ONE 01/15 0748 DC IV Furosemide 20 MG 7:30 AM, & 4:30 PM 01/15 0730 AC 01/15 IV 1705 Gabapentin 200 MG TID 01/15 1000 AC 01/15 PO 2123 Heparin Sodium 5,000 UNIT Q8 01/15 06 AC 01/16 (Porcine) SC 0626 Hydroxyzine HCl 25 MG DAILY NEEDED PRN 01/14 2215 AC PO Methylprednisolone 40 MG Q12 01/15 1000 DC 01/15 IV 0920 Omeprazole 0 .STK-MED ONE 01/15 0748 DC PO Omeprazole 40 MG DAILY AC 01/15 07 AC 01/16 PO 0627 Oxycodone HCl 0 .STK-MED ONE 01/15 1659 DC PO Oxycodone HCl 10 MG TID 01/15 1000 AC 01/15 PO 2148 Oxycodone HCl 0 .STK-MED ONE 01/15 927 DC PO Prednisone 40 MG DAILY 01/16 1000 AC PO Ramelteon 8 MG QPM PRN 01/14 221 AC 01/15 PO 2143 Rifaximin 550 MG BID 01/15 1000 AC 01/15 PO 2122 Senna 187 MG AT BEDTIME 01/150 AC 01/15 PO 2135 Sotalol HCl 40 MG BID 01/14 2200 AC 01/15 PO 0920 Tiotropium [place] 1 PUF DAILY 01/15 1000 AC 01/15 INH 0920 Tizanidine HCl 4 MG QPM 01/15 2200 AC 01/15 PO 2142 Wool Wax Alcohol 1 PAM DAILY 01/15 1000 AC 01/15 TOP 0920 Assessment/Plan Assessment: Patient is a 71-year-old morbidly obese female with past medical history significant for coronary artery disease, history of chronic diastolic congestive heart failure, paroxysmal atrial fibrillation not on any anticoagulation due to GI bleed in the past, COPD, chronic venous insufficiency with left lower extremity non-healing wound ulcer following up with wound management, CK D stage IIIa, hypertension, history of cirrhosis complicated with devices, chronic back pain on opiates came with chief complaint of shortness of breath and found to be hypoxic as well as pulmonary edema was noticed on CTA. Patient was admitted on telemetry floor and will take care for the following problems Problem #1 acute hypoxic respiratory failure * Multifactorial: CHF versus COPD exacerbation * Negative neck fluid balance thus far * 239 pounds down from 248 on admission * The setting of history of stage III diastolic dysfunction, hypertension, borderline worsening renal function, will discontinue IV Lasix and start her on 40 mg PO * Incentive spirometry, titrate off supplemental O2 as tolerated * If persistent hypoxia will attempt nocturnal CPAP for respiratory support tonight * Patient received 1 dose of azithromycin which is since been discontinued * Sputum Culture pending * Prednisone taper over 8 days per recommendation of Dr. Sharpe Problem #2 history of paroxysmal atrial fibrillation not on any anticoagulation * Persistent symptomatic bradycardia * Restart sotalol morning after discussion with cardiology, close monitor pressure Problem #3 History of chronic back pain. Partially maintaining bearable hot mandible resident tumor but he notes very minute sided patient Belén Tiffani couple rehabilitation jargojose juan Isaac routine images of gait, coronary arch We will continue her home medications and we will add [id number] Tylenol Problem #4 chronic left leg nonhealing ulcer * Wound dressing changes currently on board to left leg Problem #5: Iron deficiency anemia * Repeat iron studies this morning Pharmacological DVT prophylaxis Patient is full code Heart healthy diet Problem List: 1. CHF EXACERBATION 2. COPD (chronic obstructive pulmonary disease) 3. Bradycardia 4. Anemia Pain Ratin Pain Location: NA Pain Goal: Pain 4 or less Pain Plan: Pain pathway Tomorrow's Labs & Rationales: None required DVT/Prophylaxis: pharmacological
[2017-01-16 07:52] LABS: ABSOLUTE BASOPHIL COUNT 0 /CUMM (0.0-0.2); ABSOLUTE EOSINOPHIL COUNT 0 /CUMM (0.0-0.7); ABSOLUTE MONOCYTE COUNT 0.4 /CUMM (0.10-0.60); BASOPHIL % 0.5 % (0.0-2.0); MEAN PLATELET VOLUME 7.8 FL (7.4-10.4); RBC DISTRIBUTION WIDTH 12.7 % (11.5-14.5)
[2017-01-16 08:25] LABS: ABSOLUTE GRANULOCYTE CT 4.2 /CUMM (1.4-6.5); EOSINOPHIL % 0.1 % (0-5); GRANULOCYTE % 74.2 % (42.2-75.2); HEMATOCRIT 31.6 % (37-47); MEAN CORPUSCULAR HGB 32.1 PG (27.0-31.0); MEAN CORPUSCULAR VOLUME 97.3 FL (81.0-99.0); PLATELET COUNT 227 /CUMM (130-400); RED BLOOD CELL CT 3.25 /CUMM (4.20-5.40)
[2017-01-16 08:28] VITALS: BP 108/60
[2017-01-16 08:36] LABS: WHITE BLOOD CELL COUNT 5.7 /CUMM (4.8-10.8)
--- NOTE | 2017-01-16 10:51 | RADIOLOGY REPORT ---
EXAMINATION: XR PORTABLE CHEST CLINICAL INFORMATION: Shortness of breath. CHF. COMPARISON: Several prior chest x-rays, most recent of which is dated 01/14/2017. CTA of the chest dated 01/14/2017. TECHNIQUE: Portable AP semierect view of the chest was obtained. FINDINGS: Multiple EKG leads overlie the chest. The cardiomediastinal silhouette is enlarged, unchanged. Central vascular congestion is noted without overt pulmonary edema. No focal consolidation, effusion or pneumothorax is seen. IMPRESSION: Cardiomegaly and central vascular congestion. No overt pulmonary edema.
--- NOTE | 2017-01-16 13:33 | PN- Pulmonary ---
Subjective HPI/Critical Care Issues: his morning Mrs. Avila reports noticeable improvement in her breathing mostly with less exertional shortness of breath. Blood pressure late yesterday evening was 108/54 which sotalol was held. She denies any headaches, dizziness, chest pain, palpitations, worsening shortness of breath, sore throat, fevers, chills, abdominal pain or worsening swelling in her lower extremities. Review of Systems Constitutional: Reports: see HPI. EENTM: Reports: no symptoms. Cardiovascular: Reports: no symptoms. Respiratory: Reports: see HPI. Gastrointestinal: Reports: no symptoms. Musculoskeletal: Reports: no symptoms. Objective Current Medications: Current Medications Sig/Brabara Start time Last Medication Dose Route Stop Time Status Admin Acetaminophen 0 .STK-MED ONE 01/15 1657 DC PO Acetaminophen 1,000 MG TID 01/15 1000 AC 01/16 PO 0952 Albuterol Sulfate 2 PUF Q6P PRN 01/14 2215 AC INH Azithromycin 500 MG DAILY 01/15 1000 DC 01/15 Sodium Chloride 250 ML IV 0920 Budesonide/ 2 PUF BID 01/15 1000 AC 01/16 Formoterol Fumarate INH 0953 Clotrimazole 1 PAM BID 01/15 1000 AC 01/16 TOP 0954 Cyanocobalamin 500 MCG DAILY 01/15 1000 AC 01/16 PO 0953 Docusate Sodium 100 MG DAILY 01/15 1000 AC 01/16 PO 0952 Fentanyl Citrate 25 MCG Q72H 01/14 2045 AC 01/14 TOP 2127 Ferrous Sulfate 325 MG BID 01/15 1000 AC 01/16 PO 0953 Furosemide 40 MG DAILY 01/16 1000 AC 01/16 PO 0952 Furosemide 20 MG 7:30 AM, & 4:30 PM 01/15 0730 DC 01/15 IV 1705 Gabapentin 200 MG TID 01/15 1000 AC 01/16 PO 0953 Heparin Sodium 5,000 UNIT Q8 01/15 06 AC 01/16 (Porcine) SC 0626 Hydroxyzine HCl 25 MG DAILY NEEDED PRN 01/14 2215 AC PO Methylprednisolone 40 MG Q12 01/15 1000 DC 01/15 IV 0920 Omeprazole 40 MG DAILY AC 01/15 0700 AC 01/16 PO 0627 Oxycodone HCl 0 .STK-MED ONE 01/15 1659 DC PO Oxycodone HCl 10 MG TID 01/15 1000 AC 01/16 PO 0952 Prednisone 40 MG DAILY 01/16 1000 AC 01/16 PO 0953 Ramelteon 8 MG .STK-MED ONE 01/16 0110 DC PO 01/16 011 Ramelteon 8 MG QPM PRN 01/14 2215 AC 01/15 PO 2143 Rifaximin 550 MG BID 01/15 1000 AC 01/16 PO 0953 Senna 187 MG AT BEDTIME 01/150 AC 01/15 PO 2135 Sotalol HCl 40 MG BID 01/14 2200 AC 01/15 PO 0920 Tiotropium [place] 1 PUF DAILY 01/15 1000 AC 01/16 INH 0953 Tizanidine HCl 4 MG QPM 01/15 2200 AC 01/15 PO 2142 Wool Wax Alcohol 1 PAM DAILY 01/15 1000 AC 01/16 TOP 0954 Vital Signs & I&O Last 24 Hrs of Vitals and I&O: Vital Signs Date Time Temp Pulse Resp B/P B/P Pulse O2 O2 Flow FiO2 Mean Ox Delivery Rate 01/16 1224 92 Nasal 1.0L Cannula 01/16 1200 89 Room Air 01/16 0828 98.1 49 20 108/60 99 Nasal 3.5L Cannula 01/16 0800 Nasal 2.5L Cannula 01/16 0000 Nasal 2.5L Cannula 01/15 2300 97.9 50 22 118/62 96 Nasal 2.5L Cannula 01/15 1828 98.5 56 18 108/50 97 Nasal 2.5L Cannula 01/15 1800 Nasal 2.5L Cannula 01/15 1518 98.4 53 20 113/54 100 Nasal 2.5L Cannula Intake & Output 01/16 1600 01/16 0800 05 0000 Intake Total 400 400 Output Total 600 550 Balance -200 -150 Intake, IV 0 0 Intake, Oral 400 400 Number 0 Bowel Movements Output, Urine 600 550 Patient 239 lb Weight Weight Chair scale Measurement Method Impression/Plan Impression/Plan Impression/Plan: Physical Exam General Appearance Alert, Oriented X3, Cooperative, No Acute Distress Skin No Rashes, Skin laceration om lateral serface of left knee with erythema, no discharge or tenderness Skin Temp/Moisture Exam: Warm/Dry HEENT Atraumatic, PERRLA, EOMI, Mucous Membr. moist/pink, skin lesion over left side of frontal bone of cranial vault Neck Supple, JVP elevated Lymphatic mo cervical lymphadenopathy Cardiovascular Regular Rate, Normal S1, Normal S2, No Murmurs Lungs bilateral decrease air entery and basal course crackles. fine inspiratory wheeze Abdomen Normal Bowel Sounds, Soft, No Tenderness, No Hepatospenomegaly Neurological Normal Gait, Normal Speech, Strength at 5/5 X4 Ext, Normal Tone, Sensation Intact, Cranial Nerves 3-12 NL, Reflexes 2+ Extremities No Clubbing, No Cyanosis, Normal Pulses, BL LE pedal edema +1, erythema chronic, no weepimg or tenderness CHEST CT IMPRESSION: 1. No central or segmental pulmonary emboli. 2. Scattered bilateral groundglass opacities, right greater than left. This could represent early infiltrates, prominent interstitial fluid indicating fluid overload, or patchy atelectasis. Correlation for infection or fluid overload is recommended. 3. Cardiomegaly. 4. Scattered, nonspecific mediastinal lymph nodes, not significantly changed since the chest CT dated 04/30/2017. VTE: Negative. This is a morbidly obese lady with ELISE non compliant (with recent wt loss) with significant ongoing smoking history, mild obstructive lung disease by pfts in 2011, previous history of mediastinal lymphadenopathy with biopsy suggestive of silica exposure may have mild silicosis, chronic lung disease, severe diastolic dysfunction with pulmonary hypertension secondary to diastolic dysfunction, chronic lower extremity edema with vascular insufficiency with recurrent cellulitis, dilated aorta, now comes here with Cough wheezing shortness of breath in a lady with obstructive lung disease with wheezing consistent with * Patient has mild obstructive lung disease from previous PFTs but she continues to smoke and she has not had any PFTs in the recent past. Has probably a viral illness with mild wheezing * SIg diastolic chf as noted in the ct * Previous history of silica exposure with stable mediastinal lymphadenopathy with previous biopsy suggestive of silica exposure with lymphadenopathy. No clinical evidence suggestive of significant worsening of silicosis. * Severe restrictive heart disease with normal ejection fraction with acute congestive diastolic heart failure * Paroxysmal atrial fibrillation not on anticoagulation therapy. * Chronic anemia with chronic kidney disease. * Chronic lower extremity venous insufficiency with recurrent cellulitis. * Anxiety and depression. * Significant obstructive sleep apnea in the past, noncompliant with her CPAP. ( However patient has weight loss in the recent past.) * Significant tracheobronchomalacia due to recurrent bronchitis * Chronic pain syndrome with probable fibromyalgia with previous vasculitis workup negative. Pt does have elise and high risk for hypercarbia * Insomnia, IBS, depression and anxiety relatively stable. Pt on Rifaxamin * Mild to moderate pulmonary hypertension related to obstructive sleep apnea and severe diastolic dysfunction. Patient does have stage III diastolic dysfunction with restrictive filling pattern in the recent echocardiogram. * Ongoing cigarette smoking with chronic lung disease. Patient is high risk for malignancy. * Aortic dilatation. RECOMMENDATION * Wean steroids in 6 days, reduce to 20 mg in am * Continue diuresis * Smoking cessation counseling was done. * DC abx * Sputum culture * Watch her renal function. * Continue her nebulizer therapy, albuterol as needed. * Continue Spiriva. * Continue her Symbicort for now. Cardio to see Will follow
--- NOTE | 2017-01-16 15:17 | Discharge Summary ---
Visit Information Visit Dates Admission Date: 01/14/17 Discharge Date: 01/19/17 Hospital Course Course Attending Physician: ASTON MUÑOZ MD Primary Care Physician: JOHANNA CHRISTIANSON MD Other Care Providers: Dr. Ayala (cardiology) Michelle Sharpe MD (pulmonology) Consulting Request: Consulting Specialty: Cardiology Hospital Course: Mrs. Avila is a 71-year-old lady with a PMH of CAD, stage III diastolic CHF, paroxysmal A. fib not on anticoagulation in the setting of GI bleed, COPD, chronic tobacco use at 5 seconds per day, morbid obesity, chronic venous insufficiency and left lower extremity with a chronic nonhealing ulcer, stage III CKD, HTN, cirrhosis, squamous cell carcinoma of scalp with scheduled excision on 01/18/2017, chronic back pain who was admitted with complaints of shortness of breath and found to be hypoxic. Physical exam findings on admission positive for lower extremity edema. The patient was last seen in September 2016 for COPD/CHF exacerbation and has been following up at the CHF clinic once weekly with her last visit 3 weeks prior to admission. She endorsed a 1 week duration of flulike symptoms prior to presenting complaints of arthralgia, myalgia and chills, productive cough. This was followed by progressive shortness of breath prompting her to come to the ER. NB: Patient does have a history of silica exposure with previous biopsy suggestive of this. VS on admission: BP 168/ 89, RR 22, HR 66, SPO2 91% on 2 LNC, T 97.2 Pertinent physical exam findings on admission: No acute distress, laceration to the lateral aspect of the left knee with erythema. Mucous membranes pink and moist. Elevated JVP. RRR, normal S1/S2. Lungs had decreased air entry and basal crackles, fine inspiratory wheezing. Pertinent labs on admission: WBC 5.0 with 10% eosinophils, H&H 11.6/33.9, sodium 138, potassium 4.0, bicarbonate 27, BUN/CR 18/1.1 CXR: Stable mild cardiomegaly. Mild pulmonary venous congestion/interstitial edema. No overt pulmonary edema. No focal pulmonary consolidation. D-dimer: 510 Chest CTA: No central or segmental pulmonary emboli. Scattered bilateral groundglass opacities, right greater than left. This could represent early infiltrates, prominent interstitial fluid indicating fluid overload, or patchy atelectasis. Correlation for infection or fluid overload is recommended. Cardiomegaly. Scattered, nonspecific mediastinal lymph nodes, not significantly changed since the chest CT dated 04/30/2017. The patient was admitted to telemetry for management of the following problems: 1. Hypoxic respiratory failure: COPD versus CHF exacerbation 2. Diastolic heart failure 3. Asymptomatic bradycardia with history of paroxysmal A. fib NOAC 4. Iron deficiency anemia 5. Acute on CKD 6. Chronic venous insufficiency 7. Obstructive sleep apnea noncompliant with CPAP 8. Fibromyalgia indicated with chronic pain syndrome 9. IBS 10. Tobacco dependence Hospital course: 1. Hypoxic respiratory failure: COPD versus CHF exacerbation * She received 1 dose of azithromycin which was discontinued in the setting of noticeable minimal wheezing. She was maintained on nebulizer therapy, when necessary albuterol, Spiriva, Symbicort, incentive spirometry and a quick prednisone taper which she will be discharged on * ProBNP 178. Serial troponins remained negative with no EKG changes noted on telemetry * The patient will be discharged on previous dose of Lasix with recommendations for outpatient follow-up at CHF clinic, salt restriction in diet, leg elevation 2. Diastolic heart failure * Echo on 08/24/16: LVEF 65% restrictive filling pattern, stage III diastolic dysfunction. Mildly increased resting LV outflow tract velocity 1.4m/s * She will likely benefit from an outpatient dobutamine stress test to assess for underlying ischemia 3. Asymptomatic bradycardia with history of paroxysmal A. fib NOAC * Throughout the hospital course the patient was noted to be persistently bradycardic in the 40s to 50s while awake and 30s while asleep. There were no reports of dizziness, chest pain, exertional dyspnea during the hospital course * She has a history of Afib with noticeble dyspnea and hypoxia while in Afib. With her history of GI bleed the decision was made previously not to restart her on AC based on risk/benefit assessment. Since initiation of sotalol she has remaind in sinus rhythm * Throughout the hospital course she was bradycardic 38-50's bpm but asymptomatic. Per cardiology, if she were to become symptomatic that would warrant a pacemaker implantation based on the rhythm benefits while on sotalol 4. Iron deficiency anemia * History of iron deficiency for which she has been on ferrous sulfate supplementation * Repeat iron studies: Iron 65, TIBC 295, percent saturation 22, ferritin 45 * To current regimen and follow-up outpatient once 5. Acute on CKD * Slight bump in creatinine in the setting of increased diuresis * Renal function remained stable * Discharge BUN/cr 38/1.3 6. Chronic venous insufficiency * Stable throughout the hospital course 7. Obstructive sleep apnea noncompliant with CPAP * Patient declined to have CPAP nocturnally. Noticeable improvement in restaurants status over the short hospital course. Advised patient to follow-up with PCP and access developer after discharge 8. Fibromyalgia indicated with chronic pain syndrome * Stable throughout the hospital course on her current analgesics 9. IBS * Continue home dose regimen 10. Tobacco dependence * Nicotine patch throughout hospital course. Smoking cessation importance addressed with the patient. Follow-up outpatient once patient is amenable to quitting Allergies: Coded Allergies: azithromycin (Mild, RASH, ITCHY 09/28/16) Penicillins (ITCHY RASH 09/28/16) Sulfa (Sulfonamide Antibiotics) (ITCHY RASH 09/28/16) adhesive tape (ITCHY RASH 09/28/16) amantadine (ITCHY RASH 09/28/16) cefadroxil (ITCHY RASH 09/28/16) codeine (ITCHY RASH 09/28/16) erythromycin base (ITCHY RASH 09/28/16) sulfadiazine (ITCHY RASH 09/28/16) latex (Intermediate, CONTACT DERMATITIS 04/15/16) Disposition Summary Disposition Principal Diagnosis: Hypoxic respiratory failure: COPD versus CHF exacerbation Additional Diagnosis: Diastolic heart failure Asymptomatic bradycardia with history of paroxysmal A. fib NOAC Iron deficiency anemia Acute on CKD Chronic venous insufficiency Obstructive sleep apnea noncompliant with CPAP Fibromyalgia indicated with chronic pain syndrome IBS Tobacco dependence Discharge Disposition: home or self care Discharge Instructions General Discharge Information Code Status: Full Code Patient's Diet: Heart healthy Patient's Activity: As tolerated Follow-Up Instructions/Appts: These follow-up with PCP within 1-2 weeks after discharge. Please follow-up with access developer within 2 weeks after discharge. 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 Please take all medications as directed. Medications at Discharge Discharge Medications: Stop taking the following medications: Gabapentin (Neurontin) 100 MG CAPSULE ORAL THREE TIMES DAILY Furosemide (Furosemide) 40 MG TABLET ORAL DAILY Qty = 30 Continue taking these medications: Albuterol Sulfate (Proventil Hfa) 6.7 GM HFA.AER.AD 2 Puff Inhale through mouth EVERY SIX HOURS as needed for wheezinG Comments: NOT GIVEN Ferrous Sulfate (Ferrous Sulfate) 325 MG TABLET 1 Tablet ORAL TWICE DAILY Comments: GIVEN 01/19/17 @ 10 AM Fluticasone/Salmeterol (Advair 250-50 Diskus) 1 EACH BLST.W.DEV 1 Puff Inhale through mouth TWICE DAILY Comments: NOT TAKEN IN HOSPITAL Ipratropium/Albuterol Sulfate (Iprat-Albut 0.5-3(2.5) MG/3 Ml) 3 ML AMPUL.NEB 3 Milliliters Inhale Solution EVERY SIX HOURS as needed for shortness of breath Comments: GIVEN 01/18/17 Pantoprazole Sodium (Protonix) 40 MG TABLET.DR 1 Tablet ORAL DAILY Comments: GIVEN 01/19/17 @ 0600 PRILOSEC Rifaximin (Xifaxan) 550 MG TABLET 1 Tablet ORAL TWICE DAILY Comments: GIVEN 01/19/17 @ 10AM Saccharomyces Boulardii (Florastor) (Unknown Strength) CAPSULE Unknown Dose ORAL DAILY Comments: NOT GIVEN Sennosides (Senna) 8.6 MG TABLET 1 Tablet ORAL AT BEDTIME Comments: GIVEN 01/18/17 @ 10PM Sotalol HCl (Sotalol) 80 MG TABLET 0.5 Tablet ORAL TWICE DAILY Comments: GIVEN 01/19/17 @ 10AM Tiotropium [place] (Spiriva) 18 MCG CAP.W.DEV 1 Capsule Inhale through mouth DAILY Comments: GIVEN 01/19/17 @ 10AM Tizanidine HCl (Tizanidine HCl) 4 MG TABLET 1 Tablet ORAL Every night Comments: GIVEN 01/18/17 @ 10PM Mineral Oil/Petrolatum,White (Eucerin Creme) 120 GM CREAM..G. 1 Application On the skin DAILY Estrogens, Conjugated (Premarin) 30 GM CREAM.APPL 1 Application On the skin THREE TIMES DAILY Comments: NOT GIVEN IN THE HOSPITAL Petrolatum,White (Aquaphor) 396 GM OINT...G. 1 Application On the skin DAILY Days = 30 Instructions: apply on left leg Fentanyl (Fentanyl) 1 EACH PATCH.TD72 25 Microgram On the skin Q72H Days = 30 Instructions: Apply to right hip, follow up with your pain doctor Comments: GIVEN 01/17/17 @ 9 PM Ramelteon (Rozerem) 8 MG TABLET 1 Tablet ORAL Every night as needed for SLEEP Days = 30 Instructions: Take 30 minutes before bedtime for sleep. Comments: GIVEN 01/18/17 @ 11PM Oxycodone HCl (Oxycodone HCl) 10 MG TABLET 1 Tablet ORAL THREE TIMES DAILY Qty = 110 Comments: GIVEN 01/19/17 @ 10AM Cyanocobalamin (Vitamin B-12) (Vitamin B-12) 500 MCG TABLET 2 Tablet ORAL DAILY Qty = 30 Comments: GIVEN 01/19/17 @ 10 AM Ergocalciferol (Vitamin D2) (Vitamin D2) 50,000 UNIT CAPSULE 1 Capsule ORAL ONCE A MONTH Qty = 3 Comments: NOT GIVEN IN THE HOSPITAL Docusate Sodium (Colace) 100 MG CAPSULE 1 Capsule ORAL DAILY Comments: GIVEN 01/19/17 @ 10AM Clotrimazole/Betamethasone Dip (Clotrimazole-Betamethasone Crm) 1 %-0.05 % CREAM..G. 1 Application On the skin as needed for SKIN Qty = 45 Instructions: apply to affected area(s) Comments: GIVEN 01/18/17 @ 10PM Hydroxyzine HCl (Hydroxyzine HCl) 50 MG TABLET 0.5 Tablet ORAL as needed for ITCHING Qty = 135 Comments: NOT GIVEN Start taking the following new medications: Prednisone (Prednisone) 10 MG TABLET 1 Tablet ORAL As Directed Qty = 4 No Refills Instructions: Take 2 tablets on 01/20/17 Take 1 tablet on 01/21 and 01/22. This will complete the esteroid taper Comments: GIVEN 01/19/17 @ 10AM Furosemide (Lasix) 40 MG TABLET 1 Tablet ORAL DAILY Qty = 30 No Refills Comments: GIVEN 01/19/17 @ 10AM Gabapentin (Gabapentin) 100 MG CAPSULE 1 Capsule ORAL THREE TIMES DAILY Qty = 90 No Refills Comments: GIVEN 01/19/17 @ 10AM Acetaminophen (Tylenol Extra Strength) 500 MG TABLET 1 Tablet ORAL AT BEDTIME as needed for Arthritis pain Qty = 30 No Refills Comments: GIVEN 01/19/17 @ 10AM Copies To: MEGHAN HOLLAND,JOHANNA; ZANA HOLLAND,MICHELLE Solis; SARITA HOLLAND,ESTELLA Solis
[2017-01-16 15:48] VITALS: BP 130/80
--- NOTE | 2017-01-16 18:15 | PN- Cardiology ---
Subjective Subjective: Breathing improved. No chest discomfort, palpitations, etc. Has remained in sinus rhythm with slow his heart rate overnight to 43 bpm. Objective Vital Signs and I&Os Vital Signs Date Time Temp Pulse Resp B/P B/P Pulse O2 O2 Flow FiO2 Mean Ox Delivery Rate 01/16 1548 97.8 48 20 130/80 96 01/16 1401 96 Nasal 1.0L Cannula 01/16 1400 Nasal 1.0L Cannula 01/16 1224 92 Nasal 1.0L Cannula 01/16 1200 89 Room Air 01/16 0828 98.1 49 20 108/60 99 Nasal 3.5L Cannula 01/16 0800 Nasal 2.5L Cannula 01/16 0000 Nasal 2.5L Cannula 01/15 2300 97.9 50 22 118/62 96 Nasal 2.5L Cannula 01/15 1828 98.5 56 18 108/50 97 Nasal 2.5L Cannula Intake & Output 01/16 1600 01/16 0800 01/16 0000 / 1600 01/15 0800 01/15 0000 Intake Total 480 667 457 1469 240 240 Output Total 600 274 386 9581 1800 Balance -120 -200 -150 250 240 -1560 Intake, IV 0 0 250 Intake, Oral 480 813 144 0641 240 240 Number 0 1 Bowel Movements Output, Urine 600 251 093 2330 1800 Patient 239 lb Weight Weight Chair scale Measurement Method Physical Exam: Wd/obese, elderly w f in NAD. Neck: No JVD, no bruits. Lungs: Decreased breath sounds bilaterally, occasional rhonchi, bibasilar crackles. Heart: S1, S2 (regular) with grade 1-2/6 systolic ejection type murmur best heard in the bases. No gallop or rub appreciated. PMI not well felt. abdomen: Soft, nontender, positive bowel sounds. Extremities: 1+ right and trace left lower graham edema. Results Last 48 Hrs of Labs/Mics: Laboratory Tests 01/16/17 0635: Anion Gap 9, Estimated GFR 37 L, BUN/Creatinine Ratio 25.7 H, Phosphorus 4.3, Magnesium 2.2, Iron 65, TIBC 295, % Saturation 22, Ferritin 47.0, CBC w Diff NO MAN DIFF REQ, RBC 3.25 L, MCV 97.3, MCH 32.1 H, RDW 12.7, MPV 7.8, Gran % 74.2 , Lymphocytes % 18.0 L, Monocytes % 7.2, Eosinophils % 0.1, Basophils % 0.5, Absolute Granulocytes 4.2, Absolute Lymphocytes 1.0 L, Absolute Monocytes 0.4, Absolute Eosinophils 0, Absolute Basophils 0, PUBS MCHC 33.0 01/15/17 0713: Troponin I Cancelled 01/15/17 0600: Troponin I Cancelled, CBC w Diff NO MAN DIFF REQ, RBC 3.46 L, MCV 96.6, MCH 32.5 H, RDW 12.4, MPV 7.3 L, Gran % 82.4 H, Lymphocytes % 16.0 L, Monocytes % 1.4 L, Eosinophils % 0.1, Basophils % 0.1, Absolute Granulocytes 2.5, Absolute Lymphocytes 0.5 L, Absolute Monocytes 0 L, Absolute Eosinophils 0, Absolute Basophils 0, PUBS MCHC 33.7 01/15/17 0540: Anion Gap 12, Estimated GFR 45 L, BUN/Creatinine Ratio 18.3, Hemoglobin A1c 5.3 , Magnesium 2.0, Troponin I < 0.01, TSH 0.987, Free T4 1.54 01/14/17 1830: Lactic Acid Cancelled Recent Imaging Studies: CXR (01/16/2017): Cardiomegaly and central vascular congestion. No overt pulmonary edema. Assessment/Plan Assessment/Plan 71 y o f w/ a hx of obesity, longstanding tob use, COPD, 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 Switched from IV furosemide 20 mg twice daily this morning to by mouth furosemide 40 mg daily. Had been on by mouth furosemide 20 mg daily as an outpatient. CXR still reveals vascular congestion, but BUN/creatinine both up this a.m. despite "positive" fluid balance yesterday and weight loss of 9 pounds compared to admission on this a.m.'s weight. Recommendations: * Continue on telemetry, continue strict inputs and outputs, continue daily weights. * Continue close follow-up of BUN/creatinine, potassium, magnesium, etc. with continued diuresis. * Consider repeat CXR prior to discharge. * Once out of heart failure, would recommend a Dobutamine stress test to exclude significant ischemia as a major contributing factor to her presentation. * Continue Sotalol 40 mg twice daily with close attention to heart rate, which is presently acceptable. * The role of anticoagulation has been addressed on a previous hospitalization with her lumber grader and the consensus has been that anticoagulation should not be restarted. * Continue oxygen, TRC, steroids, antimicrobial therapy, etc. as per pulmonary medicine. * Continue DVT prophylaxis. Continue telemetry? Yes
[2017-01-16 23:00] VITALS: BP 122/64
--- NOTE | 2017-01-17 07:26 | PN- Housestaff ---
See Addendum Subjective Follow-up For: CHF exacerbation COPD exacerbation Hypoxic respiratory failure Iron deficiency anemia Complaints: Mild abdominal discomfort and low back ache Tele-Events Since Last Visit: Normal sinus rhythm/bradycardia 41 through 49 BPM. 38 bpm at midnight Subjective: Interval history: Late yesterday evening the patient reported feeling slightly lethargic and weak. She denied any fevers or chills associated with this. Overnight there were no acute events. This morning she does report persistent cough but denies any chest pain, worsening shortness of breath, dizziness, headache, blurred vision, nausea, abdominal pain, symptoms in line with orthopnea/PND or lower extremity swelling. Review of Systems Constitutional: Reports: see HPI. EENTM: Reports: no symptoms. Cardiovascular: Reports: no symptoms. Respiratory: Reports: see HPI. Gastrointestinal: Reports: see HPI. Musculoskeletal: Reports: see HPI. Objective Last 24 Hrs of Vital Signs/I&O Vital Signs Date Time Temp Pulse Resp B/P B/P Pulse O2 O2 Flow FiO2 Mean Ox Delivery Rate 01/17 0000 Nasal 1.0L Cannula 01/16 2300 98.1 52 20 122/64 94 Nasal 1.0L Cannula 01/16 1900 98 Nasal 1.0L Cannula 01/16 1548 97.8 48 20 130/80 96 01/16 1401 96 Nasal 1.0L Cannula 01/16 1400 Nasal 1.0L Cannula 01/16 1224 92 Nasal 1.0L Cannula 01/16 1200 89 Room Air 01/16 0828 98.1 49 20 108/60 99 Nasal 3.5L Cannula 01/16 0800 Nasal 2.5L Cannula Intake & Output 01/17 0800 01/17 0000 01/16 1600 Intake Total 100 500 480 Output Total 450 650 600 Balance -350 -150 -120 Intake, IV 0 0 Intake, Oral 100 500 480 Number 0 0 Bowel Movements Output, Urine 450 650 600 Patient 238 lb Weight Weight Standing Scale Measurement Method Physical Exam General Appearance: Cooperative, No Acute Distress Skin: Mils erythema on anterior aspects of both LE. Stable over the past 24hrs Skin Temp/Moisture Exam: Warm/Dry HEENT: EOMI, Mucous Membr. moist/pink Cardiovascular: Regular Rate, Normal S1, Normal S2, Bradycardic Lungs: Normal Air Movement, Expiratory rhonchi present bilaterally. Wheezing resolved Abdomen: Normal Bowel Sounds, Soft, No Tenderness Extremities: Normal Pulses, 1+ pitting edema BL LE. StAble over the past 24 hrs Vascular: Pulses Symmetrical Current Medications: Current Medications Sig/Barbara Start time Last Medication Dose Route Stop Time Status Admin Acetaminophen 1,000 MG TID 01/15 1000 AC 01/16 PO 2108 Albuterol Sulfate 3 ML Q4P PRN 01/16 1400 AC 01/16 INH 1900 Albuterol Sulfate 2 PUF Q6P PRN 01/14 2215 AC INH Budesonide/ 2 PUF BID 01/15 1000 AC 01/16 Formoterol Fumarate INH 2109 Clotrimazole 1 PAM BID 01/15 1000 AC 01/16 TOP 2107 Cyanocobalamin 500 MCG DAILY 01/15 1000 AC 01/16 PO 952 Docusate Sodium 100 MG DAILY 01/15 1000 AC 01/16 PO 951 Fentanyl Citrate 25 MCG Q72H 01/14 204 AC 01/14 TOP 212 Ferrous Sulfate 325 MG BID 01/15 1000 AC 01/16 PO 2108 Furosemide 40 MG DAILY 01/16 1000 AC 01/16 PO 951 Furosemide 20 MG 7:30 AM, & 4:30 PM 01/15 0730 DC 01/15 IV 1705 Gabapentin 100 MG TID 01/16 1600 AC 01/16 PO 2108 Gabapentin 200 MG TID 01/15 1000 DC 01/16 PO 53 Heparin Sodium 5,000 UNIT Q8 01/15 06 AC 01/17 (Porcine) SC 0611 Hydroxyzine HCl 25 MG DAILY NEEDED PRN 01/14 2215 AC PO Omeprazole 40 MG DAILY AC 01/15 0700 AC 01/17 PO 606 Oxycodone HCl 10 MG TID 01/15 1000 AC 01/17 PO 606 Prednisone 20 MG DAILY 01/17 1000 AC PO Prednisone 40 MG DAILY 01/16 1000 DC 01/16 PO 952 Ramelteon 8 MG .STK-MED ONE 01/16 2109 DC PO 01/16 2110 Ramelteon 8 MG QPM PRN 01/14 2215 AC 01/16 PO 2108 Rifaximin 550 MG BID 01/15 1000 AC 01/16 PO 2108 Senna 187 MG AT BEDTIME 01/150 AC 01/16 PO 2108 Sotalol HCl 40 MG BID 01/14 2200 AC 01/16 PO 2108 Tiotropium [place] 1 PUF DAILY 01/15 1000 AC 01/16 INH 0953 Tizanidine HCl 4 MG QPM 01/15 2200 AC 01/16 PO 2109 Wool Wax Alcohol 1 PAM DAILY 01/15 1000 01/16 TOP 0954 Last 24 Hrs of Lab/Jewel Results Last 24 Hrs of Labs/Mics: Laboratory Tests 01/17/17 0620: Sodium Pending, Potassium Pending, Chloride Pending, Carbon Dioxide Pending, Anion Gap Pending, BUN Pending, Creatinine Pending, BUN/Creatinine Ratio Pending Microbiology 01/17 928 LOWER RESP: Respiratory Culture - COLB 01/17 928 LOWER RESP: Gram Stain - COLB Assessment/Plan Assessment: Patient is a 71-year-old morbidly obese female with past medical history significant for coronary artery disease, history of chronic diastolic congestive heart failure, paroxysmal atrial fibrillation not on any anticoagulation due to GI bleed in the past, COPD, chronic venous insufficiency with left lower extremity non-healing wound ulcer following up with wound management, CK D stage IIIa, hypertension, history of cirrhosis complicated with devices, chronic back pain on opiates came with chief complaint of shortness of breath and found to be hypoxic as well as pulmonary edema was noticed on CTA. Patient was admitted on telemetry floor and will take care for the following problems Problem #1 acute hypoxic respiratory failure * Noticeable improvement over the past 24 hours. Supplemental O2 down to 1 L from 2.5 yesterday. * Negative neck fluid balance thus far. 238 pounds down from 248 on admission * Currently on furosemide 40 mg daily * Incentive spirometry, ambulatory desat study this morning * Follow-up chest x-ray this morning * Mucinex for symptomatic control * Patient has not been able to provide a sputum culture thus far Problem #2 history of paroxysmal atrial fibrillation not on any anticoagulation * Persistent symptomatic bradycardia * Bradycardia has persisted. * The patient has been on sotalol 40 mg BID. Noticeable drop in her GFR. We'll discuss with cardiology option for decreasing the sotalol to 40 mg once daily based on her renal function and persistent bradycardia Problem #3: Lethargy/somnolence * Slight decline in her GFR while on 200ng TID gabapentin * Dose decreased from 200-100 mg TID * Assess for symptomatic improvement and follow-up renal functions morning and adjust dose accordingly Problem #4: Iron deficiency anemia * Iron studies: Iron 65, TIBC 295, ferritin 47. * Continue with current ferrous sulfate supplementation in the setting of resolution of previously present on deficiency Problem #5: History of chronic back pain. Stable at this time Problem #6: chronic left leg nonhealing ulcer * Wound dressing changes currently on board to left leg Pharmacological DVT prophylaxis Patient is full code Heart healthy diet Problem List: 1. COPD exacerbation 2. CHF exacerbation 3. COPD exacerbation 4. Bradycardia 5. Anemia Pain Ratin Pain Location: Lower back Pain Goal: Pain 4 or less Pain Plan: Pain pathway Tomorrow's Labs & Rationales: None required. Stable for discharge DVT/Prophylaxis: pharmacological Consulting Request: Consulting Specialty: Cardiology Discharge Plan Discharge Disposition: home Stable for Discharge? Yes Anticipated Discharge (Day): today If Discharged Today/In 24 Hrs: enter [facility] discharge ord, W-10/discharge paper done, DC summary done, CMR done
--- NOTE | 2017-01-17 08:05 | RADIOLOGY REPORT ---
EXAMINATION: XR PORTABLE CHEST CLINICAL INFORMATION: Persistent hypoxia COMPARISON: 01/16/2017 TECHNIQUE: Portable frontal view of the chest was obtained. FINDINGS: Lung volumes are symmetric. No new consolidation is seen. There remains prominence of the central vasculature, suggesting congestion without overt edema. No pneumothorax or significant pleural effusion. The cardiac silhouette remains prominent. No acute osseous findings are seen. IMPRESSION: No significant change since 01/16/2017. Prominent central vasculature suggesting congestion, without overt edema.
[2017-01-17 08:52] VITALS: BP 124/68
--- NOTE | 2017-01-17 14:09 | PN- Pulmonary ---
Subjective HPI/Critical Care Issues: Overnight there were no acute events. This morning she does report persistent cough but denies any chest pain, worsening shortness of breath, dizziness, headache, blurred vision, nausea, abdominal pain, symptoms in line with orthopnea/PND or lower extremity swelling. Review of Systems Constitutional: Reports: see HPI. EENTM: Reports: no symptoms. Cardiovascular: Reports: no symptoms. Respiratory: Reports: see HPI. Gastrointestinal: Reports: see HPI. Musculoskeletal: Reports: see HPI. Objective Current Medications: Current Medications Sig/Barbara Start time Last Medication Dose Route Stop Time Status Admin Acetaminophen 1,000 MG TID 01/15 1000 AC 01/17 PO 1044 Albuterol Sulfate 3 ML Q4P PRN 01/16 1400 AC 01/16 INH 1900 Albuterol Sulfate 2 PUF Q6P PRN 01/14 2215 AC INH Budesonide/ 2 PUF BID 01/15 1000 AC 01/17 Formoterol Fumarate INH 1044 Clotrimazole 1 PAM BID 01/15 1000 AC 01/16 TOP 2108 Cyanocobalamin 500 MCG DAILY 01/15 1000 AC 01/17 PO 1044 Docusate Sodium 100 MG DAILY 01/15 1000 AC 01/17 PO 1044 Fentanyl Citrate 25 MCG Q72H 01/14 2045 AC 01/14 TOP 2127 Ferrous Sulfate 325 MG BID 01/15 1000 AC 01/17 PO 1044 Furosemide 20 MG ONCE ONE 01/17 1045 DC 05 IV 01/17 1046 1045 Furosemide 40 MG DAILY 01/16 1000 DC 01/16 PO 0952 Gabapentin 100 MG TID 01/16 1600 AC 01/17 PO 1045 Gabapentin 200 MG TID 01/15 1000 DC 01/16 PO 0953 Guaifenesin 600 MG Q12 01/17 1000 AC 01/17 PO 1045 Heparin Sodium 5,000 UNIT Q8 01/15 0600 AC 01/17 (Porcine) SC 0611 Hydroxyzine HCl 25 MG DAILY NEEDED PRN 01/14 2215 AC PO Nystatin 1 PAM TID 01/17 1600 AC TOP Omeprazole 40 MG DAILY AC 01/15 0700 AC 01/17 PO 0607 Oxycodone HCl 10 MG TID 01/15 1000 AC 01/17 PO 0607 Patient Medication 1 ED .STK-MED ONE 01/17 1352 DC Teaching ED 01/17 1353 Prednisone 30 MG DAILY 01/17 1045 AC 01/17 PO 1045 Prednisone 20 MG DAILY 01/17 1000 DC PO Prednisone 40 MG DAILY 01/16 1000 DC 01/16 PO 0953 Ramelteon 8 MG .STK-MED ONE 01/16 2109 DC PO 01/16 2110 Ramelteon 8 MG QPM PRN 01/14 2215 AC 01/16 PO 210 Rifaximin 550 MG BID 01/15 1000 AC 01/17 PO 104 Senna 187 MG AT BEDTIME 01/15 2200 AC 01/16 PO 2108 Sotalol HCl 40 MG BID 01/14 220 AC 01/17 PO 104 Tiotropium [place] 1 PUF DAILY 01/15 1000 AC 01/17 INH 1045 Tizanidine HCl 4 MG QPM 01/15 2200 AC 01/16 PO 2108 Wool Wax Alcohol 1 PAM DAILY 01/15 1000 AC 01/16 TOP 0954 Vital Signs & I&O Last 24 Hrs of Vitals and I&O: Vital Signs Date Time Temp Pulse Resp B/P B/P Pulse O2 O2 Flow FiO2 Mean Ox Delivery Rate 01/17 1108 92 Nasal 1.0L Cannula 01/17 0852 98.2 47 16 124/68 95 Nasal 1.0L Cannula 01/17 0000 Nasal 1.0L Cannula 01/16 2300 98.1 52 20 122/64 94 Nasal 1.0L Cannula 01/16 1900 98 Nasal 1.0L Cannula 01/16 1548 97.8 48 20 130/80 96 Intake & Output 01/17 1600 01/17 0800 01/17 0000 Intake Total 100 500 Output Total 450 650 Balance -350 -150 Intake, IV 0 0 Intake, Oral 100 500 Number 0 0 Bowel Movements Output, Urine 450 650 Patient 238 lb Weight Weight Standing Scale Measurement Method Impression/Plan Impression/Plan Impression/Plan: Physical Exam General Appearance Alert, Oriented X3, Cooperative, No Acute Distress Skin No Rashes, Skin laceration om lateral serface of left knee with erythema, no discharge or tenderness Skin Temp/Moisture Exam: Warm/Dry HEENT Atraumatic, PERRLA, EOMI, Mucous Membr. moist/pink, skin lesion over left side of frontal bone of cranial vault Neck Supple, JVP elevated Lymphatic mo cervical lymphadenopathy Cardiovascular Regular Rate, Normal S1, Normal S2, No Murmurs Lungs bilateral decrease air entery and basal course crackles. fine inspiratory wheeze Abdomen Normal Bowel Sounds, Soft, No Tenderness, No Hepatospenomegaly Neurological Normal Gait, Normal Speech, Strength at 5/5 X4 Ext, Normal Tone, Sensation Intact, Cranial Nerves 3-12 NL, Reflexes 2+ Extremities No Clubbing, No Cyanosis, Normal Pulses, BL LE pedal edema +1, erythema chronic, no weepimg or tenderness CHEST CT IMPRESSION: 1. No central or segmental pulmonary emboli. 2. Scattered bilateral groundglass opacities, right greater than left. This could represent early infiltrates, prominent interstitial fluid indicating fluid overload, or patchy atelectasis. Correlation for infection or fluid overload is recommended. 3. Cardiomegaly. 4. Scattered, nonspecific mediastinal lymph nodes, not significantly changed since the chest CT dated 04/30/2017. VTE: Negative. This is a morbidly obese lady with ELISE non compliant (with recent wt loss) with significant ongoing smoking history, mild obstructive lung disease by pfts in 2011, previous history of mediastinal lymphadenopathy with biopsy suggestive of silica exposure may have mild silicosis, chronic lung disease, severe diastolic dysfunction with pulmonary hypertension secondary to diastolic dysfunction, chronic lower extremity edema with vascular insufficiency with recurrent cellulitis, dilated aorta, now comes here with Cough wheezing shortness of breath in a lady with obstructive lung disease with wheezing consistent with * Patient has mild obstructive lung disease from previous PFTs but she continues to smoke and she has not had any PFTs in the recent past. Has probably a viral illness with mild wheezing * SIg diastolic chf as noted in the ct * Previous history of silica exposure with stable mediastinal lymphadenopathy with previous biopsy suggestive of silica exposure with lymphadenopathy. No clinical evidence suggestive of significant worsening of silicosis. * Severe restrictive heart disease with normal ejection fraction with acute congestive diastolic heart failure * Paroxysmal atrial fibrillation not on anticoagulation therapy. * Chronic anemia with chronic kidney disease. * Chronic lower extremity venous insufficiency with recurrent cellulitis. * Anxiety and depression. * Significant obstructive sleep apnea in the past, noncompliant with her CPAP. ( However patient has weight loss in the recent past.) * Significant tracheobronchomalacia due to recurrent bronchitis * Chronic pain syndrome with probable fibromyalgia with previous vasculitis workup negative. Pt does have elise and high risk for hypercarbia * Insomnia, IBS, depression and anxiety relatively stable. Pt on Rifaxamin * Mild to moderate pulmonary hypertension related to obstructive sleep apnea and severe diastolic dysfunction. Patient does have stage III diastolic dysfunction with restrictive filling pattern in the recent echocardiogram. * Ongoing cigarette smoking with chronic lung disease. Patient is high risk for malignancy. * Aortic dilatation. RECOMMENDATION * Wean steroids in 6 days, reduce to 20 mg in am * Continue diuresis * Smoking cessation counseling was done. * DC abx * Sputum culture * Watch her renal function. * Continue her nebulizer therapy, albuterol as needed. * Continue Spiriva. * Continue her Symbicort for now. Cardio to see ok to follow up with me in the office Will follow
[2017-01-17 16:01] VITALS: BP 128/62
--- NOTE | 2017-01-17 16:20 | PN- Cardiology ---
Subjective Subjective: While improved overall, does not feel as the though she is at her baseline. Denies any chest discomfort or palpitations, but admits to dyspnea on exertion. On monitoring, she remains in atrial fibrillation with a ventricular response rate that at its slowest, around midnight and 3 AM, was approximately 38 bpm, but has otherwise been in the 40 beat per minute range. Objective Vital Signs and I&Os Vital Signs Date Time Temp Pulse Resp B/P B/P Pulse O2 O2 Flow FiO2 Mean Ox Delivery Rate 01/17 1601 98.8 46 18 128/62 94 Room Air 01/17 1108 92 Nasal 1.0L Cannula 01/17 0852 98.2 47 16 124/68 95 Nasal 1.0L Cannula 01/17 0000 Nasal 1.0L Cannula 01/16 2300 98.1 52 20 122/64 94 Nasal 1.0L Cannula 01/16 1900 98 Nasal 1.0L Cannula Intake & Output 01/17 1600 01/17 0800 01/17 0000 01/16 1600 01/16 0800 01/16 0000 Intake Total 400 100 500 480 400 400 Output Total 650 450 650 600 600 550 Balance -250 -350 -150 -120 -200 -150 Intake, IV 0 0 0 0 Intake, Oral 400 100 500 480 400 400 Number 0 0 0 Bowel Movements Output, Urine 650 450 650 600 600 550 Patient 238 lb 239 lb Weight Weight Standing Scale Chair scale Measurement Method Physical Exam: Wd/obese, elderly w f in NAD. Neck: No JVD, no bruits. Lungs: Decreased breath sounds bilaterally, occasional rhonchi, bibasilar crackles. Heart: S1, S2 (regular) with grade 1-2/6 systolic ejection type murmur best heard in the bases. No gallop or rub appreciated. PMI not well felt. abdomen: Soft, nontender, positive bowel sounds. Extremities: 1+ right and trace left lower extremity edema. Current Medications: Current Medications Sig/Barbara Start time Last Medication Dose Route Stop Time Status Admin Acetaminophen 1,000 MG TID 01/15 1000 AC 01/17 PO 1044 Albuterol Sulfate 3 ML Q4P PRN 01/16 1400 AC 01/16 INH 1900 Albuterol Sulfate 2 PUF Q6P PRN 01/14 2215 AC INH Budesonide/ 2 PUF BID 01/15 1000 AC 01/17 Formoterol Fumarate INH 1044 Clotrimazole 1 PAM BID 01/15 1000 AC 01/16 TOP 210 Cyanocobalamin 500 MCG DAILY 01/15 1000 AC 01/17 PO 1044 Docusate Sodium 100 MG DAILY 01/15 1000 AC 01/17 PO 1044 Fentanyl Citrate 25 MCG Q72H 01/14 2045 AC 01/14 TOP 2127 Ferrous Sulfate 325 MG BID 01/15 1000 AC 01/17 PO 1044 Furosemide 20 MG ONCE ONE 01/17 1045 DC 01/17 IV 01/17 1046 1045 Furosemide 40 MG DAILY 01/16 1000 DC 01/16 PO 0952 Gabapentin 100 MG TID 01/16 1600 AC 01/17 PO 1045 Guaifenesin 600 MG Q12 01/17 1000 AC 01/17 PO 1045 Heparin Sodium 5,000 UNIT Q8 01/15 0600 AC 01/17 (Porcine) SC 0611 Hydroxyzine HCl 25 MG DAILY NEEDED PRN 01/14 2215 AC PO Nystatin 1 PAM TID 01/17 1600 AC TOP Omeprazole 40 MG DAILY AC 01/15 0700 AC 01/17 PO 0607 Oxycodone HCl 10 MG TID 01/15 1000 AC 01/17 PO 0607 Patient Medication 1 ED .STK-MED ONE 01/17 1352 DC Teaching ED 01/17 1353 Prednisone 30 MG DAILY 01/17 1045 AC 01/17 PO 1045 Prednisone 20 MG DAILY 01/17 1000 DC PO Ramelteon 8 MG .STK-MED ONE 01/16 2109 DC PO 01/16 2110 Ramelteon 8 MG QPM PRN 01/14 2215 AC 01/16 PO 210 Rifaximin 550 MG BID 01/15 1000 AC 01/17 PO 1044 Senna 187 MG AT BEDTIME 01/15 2200 AC 01/16 PO 210 Sotalol HCl 40 MG BID 01/14 2200 AC 01/17 PO 1044 Tiotropium [place] 1 PUF DAILY 01/15 1000 AC 01/17 INH 1045 Tizanidine HCl 4 MG QPM 01/15 2200 AC 01/16 PO 210 Wool Wax Alcohol 1 PAM DAILY 01/15 1000 AC 01/16 TOP 0954 Results Last 48 Hrs of Labs/Mics: Laboratory Tests 01/17/17 0620: Anion Gap 9, Estimated GFR 41 L, BUN/Creatinine Ratio 29.2 H, Phosphorus 3.8, Magnesium 2.1 01/16/17 0635: Anion Gap 9, Estimated GFR 37 L, BUN/Creatinine Ratio 25.7 H, Phosphorus 4.3, Magnesium 2.2, Iron 65, TIBC 295, % Saturation 22, Ferritin 47.0, CBC w Diff NO MAN DIFF REQ, RBC 3.25 L, MCV 97.3, MCH 32.1 H, RDW 12.7, MPV 7.8, Gran % 74.2 , Lymphocytes % 18.0 L, Monocytes % 7.2, Eosinophils % 0.1, Basophils % 0.5, Absolute Granulocytes 4.2, Absolute Lymphocytes 1.0 L, Absolute Monocytes 0.4, Absolute Eosinophils 0, Absolute Basophils 0, PUBS MCHC 33.0 Recent Imaging Studies: CXR (01/17/2017): No significant change since 01/16/2017. Prominent central vasculature suggesting congestion, without overt edema. Assessment/Plan Assessment/Plan 71 y o f w/ a hx of obesity, longstanding tob use, COPD, 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 Switched from IV furosemide 20 mg twice daily yesterday morning to by mouth furosemide 40 mg daily, but today was given IV furosemide 20 mg 1 and the oral furosemide was held. CXR, from earlier, reveals persistent vascular congestion, with BUN up slightly, but creatinine down slightly with inputs/outputs consistent with a modest diuresis and a further 1 pound weight loss. She has lost 10 pounds since admission. Recommendations: * Continue on telemetry, continue strict inputs and outputs, continue daily weights. * Continue close follow-up of BUN/creatinine, potassium, magnesium, etc. with continued diuresis. Consider giving an additional 20 IV furosemide this evening if remains in clinical heart failure. * Consider repeat CXR prior to discharge. * Once out of heart failure, would recommend a Dobutamine stress test to exclude significant ischemia as a major contributing factor to her presentation. * Continue Sotalol 40 mg twice daily with close attention to heart rate, which is presently acceptable. 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 * Continue oxygen, TRC, steroids, antimicrobial therapy, etc. as per pulmonary medicine. * Continue DVT prophylaxis. Continue telemetry? Yes (PAF with bradycardia.)
[2017-01-17 22:00] VITALS: BP 110/60
--- NOTE | 2017-01-18 07:11 | PN- Housestaff ---
FABIOLA PICHARDO 01/18/17 0711: Subjective Follow-up For: CHF exacerbation COPD exacerbation Hypoxic respiratory failure Iron deficiency anemia Complaints: no complaints Tele-Events Since Last Visit: Bradycardia: HR 42 through 42 BPM. 37 bpm at 0100 hrs. Subjective: Interval history: There were no acute events overnight. This morning Mrs. Avila reports feelingbetter and denies any fevers, chills, worsening shortness breath, chest pain, palpitations, dizziness, nausea, abdominal pain. She denies any worsening exertional shortness of breath while off the oxygen for over 12 hours. Review of Systems Constitutional: Reports: see HPI. EENTM: Reports: no symptoms. Cardiovascular: Reports: no symptoms. Respiratory: Reports: see HPI. Gastrointestinal: Reports: no symptoms. Musculoskeletal: Reports: no symptoms. Objective Last 24 Hrs of Vital Signs/I&O Vital Signs Date Time Temp Pulse Resp B/P B/P Pulse O2 O2 Flow FiO2 Mean Ox Delivery Rate 01/17 2200 98.8 42 20 110/60 93 Room Air 01/17 202 96 Room Air Room Air 01/17 1601 98.8 46 18 128/62 94 Room Air 01/17 1108 92 Nasal 1.0L Cannula 01/17 0852 98.2 47 16 124/68 95 Nasal 1.0L Cannula Intake & Output 01/18 0800 01/18 0000 01/17 1600 Intake Total 200 200 400 Output Total 800 900 650 Balance -600 -700 -250 Intake, Oral 200 200 400 Output, Urine 800 900 650 Physical Exam General Appearance: Alert, Cooperative, No Acute Distress Skin: left knee covered in a clean dressing at this time with no evidence of purulent drainage/discharge HEENT: EOMI, Mucous Membr. moist/pink Cardiovascular: Regular Rate, Normal S1, Normal S2, bradycardia Lungs: Normal Air Movement, very mild wheezing present with expiration. Mild rhonchi with interval improvement over the past 24 hours Abdomen: Normal Bowel Sounds, Soft, No Tenderness Extremities: Normal Pulses, 1+ pitting edema bilateral lower extremity is. Stable Vascular: Pulses Symmetrical Current Medications: Current Medications Sig/Barbara Start time Last Medication Dose Route Stop Time Status Admin Acetaminophen 1,000 MG TID 01/15 1000 AC 01/17 PO 2206 Albuterol Sulfate 3 ML Q4P PRN 01/16 1400 AC 01/16 INH 1900 Albuterol Sulfate 2 PUF Q6P PRN 01/14 2215 AC INH Budesonide/ 2 PUF BID 01/15 1000 AC 01/17 Formoterol Fumarate INH 2208 Clotrimazole 1 PAM BID 01/15 1000 AC 01/17 TOP 2218 Cyanocobalamin 500 MCG DAILY 01/15 1000 AC 01/17 PO 1044 Docusate Sodium 100 MG DAILY 01/15 1000 AC 01/17 PO 1044 Fentanyl Citrate 25 MCG Q72H 01/14 2045 AC 01/17 TOP 2100 Ferrous Sulfate 325 MG BID 01/15 1000 AC 01/17 PO 2208 Furosemide 20 MG ONCE ONE 01/17 2115 DC 01/17 IV 01/18 2116 221 Furosemide 40 MG .STK-MED ONE 01/17 1048 DC IV 01/17 1049 Furosemide 20 MG ONCE ONE 01/17 1045 DC 01/17 IV 01/17 1046 1045 Furosemide 40 MG DAILY 01/16 1000 DC 01/16 PO 0952 Gabapentin 100 MG TID 01/16 1600 AC 01/17 PO 2208 Guaifenesin 600 MG Q12 01/17 1000 AC 01/17 PO 2209 Heparin Sodium 5,000 UNIT Q8 01/15 0600 AC 01/18 (Porcine) SC 0536 Hydroxyzine HCl 25 MG DAILY NEEDED PRN 01/14 2215 AC PO Nystatin 1 PAM TID 01/17 1600 AC 01/17 TOP 2218 Omeprazole 40 MG DAILY AC 01/15 0700 AC 01/18 PO 0536 Oxycodone HCl 10 MG TID 01/15 1000 AC 01/17 PO 2210 Patient Medication 1 ED .STK-MED ONE 01/17 1352 DC Teaching ED 01/17 1353 Prednisone 30 MG DAILY 01/17 1045 AC 01/17 PO 1045 Prednisone 20 MG DAILY 01/17 1000 DC PO Ramelteon 8 MG QPM PRN 01/14 2215 AC 01/16 PO 2109 Rifaximin 550 MG BID 01/15 1000 AC 01/17 PO 2207 Senna 187 MG AT BEDTIME 01/150 AC 01/17 PO 2208 Sotalol HCl 40 MG BID 01/14 2200 AC 01/17 PO 2217 Tiotropium [place] 1 PUF DAILY 01/15 1000 AC 01/17 INH 1045 Tizanidine HCl 4 MG QPM 01/15 2200 AC 01/17 PO 2207 Wool Wax Alcohol 1 PAM DAILY 01/15 1000 AC 01/17 TOP 1641 Last 24 Hrs of Lab/Jewel Results Last 24 Hrs of Labs/Mics: Laboratory Tests 01/18/17 0655: Sodium Pending, Potassium Pending, Chloride Pending, Carbon Dioxide Pending, Anion Gap Pending, BUN Pending, Creatinine Pending, BUN/Creatinine Ratio Pending , Phosphorus Pending, Magnesium Pending Assessment/Plan Assessment: Patient is a 71-year-old morbidly obese female with past medical history significant for coronary artery disease, history of chronic diastolic congestive heart failure, paroxysmal atrial fibrillation not on any anticoagulation due to GI bleed in the past, COPD, chronic venous insufficiency with left lower extremity non-healing wound ulcer following up with wound management, CK D stage IIIa, hypertension, history of cirrhosis complicated with devices, chronic back pain on opiates came with chief complaint of shortness of breath and found to be hypoxic as well as pulmonary edema was noticed on CTA. Patient was admitted on telemetry floor and will take care for the following problems Problem #1 acute hypoxic respiratory failure * From, recent point she has been stable off supplemental oxygen for 12 hours. Additional dose of Lasix 20 mg IV last night. Will defer repeat chest x-ray in the setting of slight clinical improvement * Negative neck fluid balance thus far. 236.2 pounds down from 248 on admission * We'll continue with incentive spirometry, Acapella therapy, encourage ambulation * Patient should be stable for discharge tomorrow Problem #2 history of paroxysmal atrial fibrillation not on any anticoagulation * Persistent asymptomatic bradycardia * The patient has been on sotalol 40 mg BID. Despite the mild drop in her GFR which has remained relatively stable we will continue this current dose of sotalol 40 mg BID per recommendations of Dr. Ayala Problem #3: Lethargy/somnolence * Resolved at this time * Dose of gabapentin was decreased from 200-100 mg TID. No worsening in symptoms. We'll consider discharging her on this dose with adjustment on an outpatient basis based on symptoms Problem #4: Iron deficiency anemia * Stable. Iron studies: Iron 65, TIBC 295, ferritin 47. * Continue with current ferrous sulfate supplementation in the setting of resolution of previously present on deficiency Problem #5: History of chronic back pain. Stable at this time Problem #6: chronic left leg nonhealing ulcer * Wound dressing changes Pharmacological DVT prophylaxis Patient is full code Heart healthy diet Problem List: 1. COPD exacerbation 2. CHF exacerbation 3. Bradycardia 4. Iron deficiency anemia 5. Diastolic HF (heart failure) 6. Edema of lower extremity 7. Ulcer of lower extremity Pain Ratin Pain Location: NA Pain Goal: Pain 4 or less Pain Plan: PAin pathway Tomorrow's Labs & Rationales: None required. Stable for discharge DVT/Prophylaxis: pharmacological Consulting Request: Consulting Specialty: Cardiology Discharge Plan Discharge Disposition: home Stable for Discharge? Yes Anticipated Discharge (Day): today If Discharged Today/In 24 Hrs: enter antc discharge ord, W-10/discharge paper done, DC summary done, CMR done JONO HARVEY MD 01/18/17 1122: Attending MD Review Statement Attending Statement Attending MD Statement: examined this patient, discuss w/resident/PA/BATTING MACHINE OPERATOR INSULATION, agreed w/resident/PA/BATTING MACHINE OPERATOR INSULATION, reviewed EMR data (avail), discussed with nursing, discussed with case mgmt, reviewed images, amended to note Attending Assessment/Plan: Patient seen and examined, overall feeling much better. Not wearing any oxygen currently. Still feels tired and has not been out of bed and walked much yet. Vital Signs Date Time Temp Pulse Resp B/P B/P Pulse O2 O2 Flow FiO2 Mean Ox Delivery Rate 01/18 0826 94 Room Air Room Air 01/18 08 98.7 52 20 130/68 93 Room Air 01/17 2200 98.8 42 20 110/60 93 Room Air 01/17 2027 96 Room Air Room Air 01/17 1601 98.8 46 18 128/62 94 Room Air on exam; aox3, nad. cv; s1,s2, rrr, + systolic murmur. resp; basal crackles have improved, mild scattered rhonchi. abd; soft, nt, bs+ ext; 1+ edema. Laboratory Tests 01/18 0655 Chemistry Sodium (137 - 145 mmol/L) 140 Potassium (3.5 - 5.1 mmol/L) 3.9 Chloride (98 - 107 mmol/L) 98 Carbon Dioxide (22 - 30 mmol/L) 33 H Anion Gap (5 - 16) 9 BUN (7 - 17 mg/dL) 35 H Creatinine (0.5 - 1.0 mg/dL) 1.2 H Estimated GFR (>60 ml/min) 45 L BUN/Creatinine Ratio (7 - 25 %) 29.2 H Phosphorus (2.5 - 4.5 mg/dL) 3.5 Magnesium (1.6 - 2.3 mg/dL) 2.2 A/P: 71 y/o F with pmh sig for COPD not on home oxygen, HFPEF (stage 3 diastolic dysfunction, EF>65%), A.fib not on anticoagulation because of Hx GI bleeding, squamous cell carcinoma of scalp hypertension, chronic venous insufficiency, fibromyalgia, arthritis admitted with acute resp failure, acute on chronic diastolic CHF, acute COPD/ acute bronchitis. Currently improving. We will gradually prednisone taper. Agree with giving a dose of IV Lasix today and then switching to oral tomorrow. Creatinine is stable. Patient overall improving and oxygen requirement has come down to room air. Lower extremity edema has improved. Patient to continue to use Acapella device. We'll get PT evaluation. Continued TRC nebs and other current medications. Patient does become bradycardic on sotalol but we have discussed this extensively with Dr. Ayala and as well as patient is asymptomatic, bradycardia in the 30s overnight is tolerable per cardiology. DVT prophylaxis: Heparin subcutaneous. Likely discharge tomorrow. Would follow-up with PT recommendations.
[2017-01-18 08:12] VITALS: BP 130/68
--- NOTE | 2017-01-18 09:13 | Patient Discharge Instructions ---
Discharge Instructions General Discharge Information You were seen/treated for: Worsening shortness of breath: Likely secondary to COPD and diastolic heart failure Slow heart rates (bradycardia) Watch for these problems: Dizziness, chest pain, worsening shortness of breath, palpitations, worsening weakness, fevers or chills Special Instructions: Please take all medications as directed. Please follow-up with your PCP within 1-2 weeks after discharge. His follow up with your instant printer operator within 1-2 weeks after discharge for outpatient heart work up. Please call your instant printer operator immediately if you experience worsening symptoms, chest pain, shortness of breath or dizziness. Please follow-up with your inspector balance truing within 1-2 weeks after discharge. Diet Recommended Diet: Heart Healthy Activity Activity Self Limited: Yes Acute Coronary Syndrome Inclusion Criteria At DC or during hospital stay patient has or had the following: ACS DIAGNOSIS No Discharge Core Measures Meds if any: Prescribed or Continued at Discharge Meds if any: NOT Prescribed or Continued at Discharge Congestive Heart Failure Inclusion Criteria At DC or during hospital stay patient has or had the following: CHF DIAGNOSIS No Discharge Core Measures Meds if any: Prescribed or Continued at Discharge Meds if any: NOT Prescribed or Continued at Discharge Cerebrovascular accident Inclusion Criteria At DC or during hospital stay patient has or had the following: CVA/TIA Diagnosis No Discharge Core Measures Meds if any: Prescribed or Continued at Discharge Meds if any: NOT Prescribed or Continued at Discharge Venous thromboembolism Inclusion Criteria VTE Diagnosis No VTE Type NONE VTE Confirmed by (Test) NONE Discharge Core Measures - Per Current guidelines, there needs to be overlap - treatment for the first 5 days of Warfarin therapy. - If discharged on Warfarin prior to 5 days of - overlap therapy, the patient will need to be - assessed for post discharge needs including - *Post discharge parental anticoagulation - *Warfarin and/or parental anticoagulation education - *Follow up date to check INR post discharge At least 5 days overlap therapy as Inpatient No Meds if any: Prescribed or Continued at Discharge Note: Overlap Therapy is Warfarin and Anticoagulant Meds if any: NOT Prescribed or Continued at Discharge
--- NOTE | 2017-01-18 09:37 | PN- Cardiology ---
Subjective Subjective: Feels as though her breathing is better this morning. Remains in sinus rhythm with bradycardia and her slowest heart rate was 37 bpm presumably while she slept at approximately 1 AM. Received IV furosemide 20 mg twice daily yesterday and just received IV furosemide 20 mg 1. Had a good diuresis yesterday. Objective Vital Signs and I&Os Vital Signs Date Time Temp Pulse Resp B/P B/P Pulse O2 O2 Flow FiO2 Mean Ox Delivery Rate 01/18 826 94 Room Air Room Air 01/19 812 98.7 52 20 130/68 93 Room Air 01/17 2200 98.8 42 20 110/60 93 Room Air 01/17 2027 96 Room Air Room Air 01/17 1601 98.8 46 18 128/62 94 Room Air 01/18 1108 92 Nasal 1.0L Cannula Intake & Output 01/18 1600 01/18 0800 01/18 0000 01/17 1600 01/17 0801/17 0000 Intake Total 200 200 400 100 500 Output Total 800 900 650 450 650 Balance -600 -700 -250 -350 -150 Intake, IV 0 0 Intake, Oral 200 200 400 100 500 Number 0 0 Bowel Movements Output, Urine 800 900 650 450 650 Patient 238 lb Weight Weight Standing Scale Measurement Method Physical Exam: Wd/obese, elderly w f in NAD. Neck: No JVD, no bruits. Lungs: Decreased breath sounds and occasional bilateral rhonchi. Heart: S1, S2 (regular) with grade 1-2/6 systolic ejection type murmur best heard in the bases. No gallop or rub appreciated. PMI not well felt. abdomen: Soft, nontender, positive bowel sounds. Extremities: Trace bilateral lower extremity edema. Current Medications: Current Medications Sig/Barbara Start time Last Medication Dose Route Stop Time Status Admin Acetaminophen 1,000 MG TID 01/15 1000 AC 01/18 PO 0920 Albuterol Sulfate 3 ML Q4P PRN 01/16 1400 AC 01/18 INH 0824 Albuterol Sulfate 2 PUF Q6P PRN 01/14 2215 AC INH Budesonide/ 2 PUF BID 01/15 1000 AC 01/18 Formoterol Fumarate INH 0919 Clotrimazole 1 PAM BID 01/15 1000 AC 01/18 TOP 0923 Cyanocobalamin 500 MCG DAILY 01/15 1000 AC 01/18 PO 09 Docusate Sodium 100 MG DAILY 01/15 1000 AC 01/18 PO 0921 Fentanyl Citrate 25 MCG Q72H 01/14 2045 AC 01/17 TOP 2100 Ferrous Sulfate 325 MG BID 01/15 1000 AC 01/18 PO 0921 Furosemide 20 MG ONCE ONE 01/18 0900 DC 01/18 IV 01/18 0901 0922 Furosemide 20 MG ONCE ONE 01/17 2115 DC 01/17 IV 01/17 211 221 Furosemide 40 MG .STK-MED ONE 01/17 1048 DC IV 01/17 1049 Furosemide 20 MG ONCE ONE 01/17 1045 DC 01/17 IV 01/17 1046 1045 Furosemide 40 MG DAILY 01/16 1000 DC 01/16 PO 0952 Gabapentin 100 MG TID 01/16 1600 AC 01/18 PO 0921 Guaifenesin 600 MG Q12 01/17 1000 AC 01/18 PO 0921 Heparin Sodium 5,000 UNIT Q8 01/15 0600 AC 01/18 (Porcine) SC 0536 Hydroxyzine HCl 25 MG DAILY NEEDED PRN 01/14 2215 AC PO Nystatin 1 PAM TID 01/17 1600 AC 01/18 TOP 0923 Omeprazole 40 MG DAILY AC 01/15 0700 AC 01/18 PO 0536 Oxycodone HCl 10 MG TID 01/15 1000 AC 01/18 PO 0927 Patient Medication 1 ED .STK-MED ONE 01/17 1352 DC Teaching ED 01/17 1353 Prednisone 30 MG DAILY 01/17 1045 AC 01/18 PO 0921 Prednisone 20 MG DAILY 01/17 1000 DC PO Ramelteon 8 MG .STK-MED ONE 01/17 2329 DC PO 01/17 2330 Ramelteon 8 MG QPM PRN 01/14 2215 AC 01/16 PO 2109 Rifaximin 550 MG BID 01/15 1000 AC 01/18 PO 0923 Senna 187 MG AT BEDTIME 01/15 2200 AC 01/17 PO 2208 Sotalol HCl 40 MG BID 01/140 AC 01/18 PO 0920 Tiotropium [place] 1 PUF DAILY 01/15 1000 AC 01/18 INH 0921 Tizanidine HCl 4 MG QPM 01/15 2200 AC 01/17 PO 2207 Wool Wax Alcohol 1 PAM DAILY 01/15 1000 AC 01/18 TOP 0923 Results Last 48 Hrs of Labs/Mics: Laboratory Tests 01/18/17 0655: Anion Gap 9, Estimated GFR 45 L, BUN/Creatinine Ratio 29.2 H, Phosphorus 3.5, Magnesium 2.2 01/17/17 0620: Anion Gap 9, Estimated GFR 41 L, BUN/Creatinine Ratio 29.2 H, Phosphorus 3.8, Magnesium 2.1 Assessment/Plan Assessment/Plan 71 y o f w/ a hx of obesity, longstanding tob use, COPD, 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 Switched from IV furosemide 20 mg twice daily on 01/16/2017 a.m., to by mouth furosemide 40 mg daily, but instead received IV furosemide 20 mg 2 and the oral furosemide was held. As of 01/17/2017 her CXR revealed persistent vascular congestion, with BUN up slightly, but creatinine down slightly and inputs/outputs consistent with a modest diuresis and further 1 pound weight loss with a total weight loss of 10 pounds since admission. This a.m. this BUN/creatinine are both slightly improved following further diuresis. Recommendations: * Continue on telemetry, continue strict inputs and outputs, continue daily weights. * Continue close follow-up of BUN/creatinine, potassium, magnesium, etc. with continued diuresis of 20 IV furosemide twice daily. * Consider repeat CXR in a.m. * Once out of heart failure, would recommend a Dobutamine stress test to exclude significant ischemia as a major contributing factor to her presentation. * Continue Sotalol 40 mg twice daily with close attention to heart rate, which is presently acceptable. * The role of anticoagulation has been addressed on a previous hospitalization with her analytical research chemist and the consensus has been that anticoagulation should not be restarted. * Continue oxygen, TRC, steroids, antimicrobial therapy, etc. as per pulmonary medicine. * Continue DVT prophylaxis.
[2017-01-18] MEDS ORDERED: PREDNISONE10 M2 PO (10:00)
[2017-01-18] MEDS ORDERED: GABAPENTIN100 M2 PO (10:11)
[2017-01-18] MEDS ORDERED: LASIX40 M1 PO (10:12)
[2017-01-18] MEDS ORDERED: TYLENOL EXTRA500 M2 PO (10:14)
--- NOTE | 2017-01-18 13:45 | PN- Pulmonary ---
Subjective HPI/Critical Care Issues: There were no acute events overnight. This morning Mrs. Avila reports feelingbetter and denies any fevers, chills, worsening shortness breath, chest pain, palpitations, dizziness, nausea, abdominal pain. She denies any worsening exertional shortness of breath while off the oxygen for over 12 hours. Review of Systems Constitutional: Reports: see HPI. EENTM: Reports: no symptoms. Cardiovascular: Reports: no symptoms. Respiratory: Reports: see HPI. Gastrointestinal: Reports: no symptoms. Musculoskeletal: Reports: no symptoms. Objective Current Medications: Current Medications Sig/Barbara Start time Last Medication Dose Route Stop Time Status Admin Acetaminophen 1,000 MG TID 01/15 1000 AC 01/18 PO 0920 Albuterol Sulfate 3 ML Q4P PRN 01/16 1400 AC 01/18 INH 0824 Albuterol Sulfate 2 PUF Q6P PRN 01/14 2215 AC INH Budesonide/ 2 PUF BID 01/15 1000 AC 01/18 Formoterol Fumarate INH 0919 Clotrimazole 1 PAM BID 01/15 1000 AC 01/18 TOP 0923 Cyanocobalamin 500 MCG DAILY 01/15 1000 AC 01/18 PO 0921 Docusate Sodium 100 MG DAILY 01/15 1000 AC 01/18 PO 0921 Fentanyl Citrate 25 MCG Q72H 01/14 2045 AC 01/17 TOP 2100 Ferrous Sulfate 325 MG BID 01/15 1000 AC 01/18 PO 0921 Furosemide 40 MG DAILY 01/19 1000 AC PO Furosemide 20 MG ONCE ONE 01/18 1700 AC IV 01/18 1701 Furosemide 20 MG ONCE ONE 01/18 0900 DC 01/18 IV 01/18 0901 0922 Furosemide 20 MG ONCE ONE 01/17 2115 DC 01/17 IV 01/17 211 2212 Gabapentin 100 MG TID 01/16 1600 AC 01/18 PO 0921 Guaifenesin 600 MG Q12 01/17 1000 AC 01/18 PO 0921 Heparin Sodium 5,000 UNIT Q8 01/15 0600 AC 01/18 (Porcine) SC 1326 Hydroxyzine HCl 25 MG DAILY NEEDED PRN 01/14 2215 AC PO Nystatin 1 PAM TID 01/17 1600 AC 01/18 TOP 0923 Omeprazole 40 MG DAILY AC 01/15 0700 AC 01/18 PO 0536 Oxycodone HCl 10 MG TID 01/15 1000 AC 01/18 PO 0927 Patient Medication 1 ED .STK-MED ONE 01/17 1352 DC Teaching ED 01/17 1353 Prednisone 10 MG DAILY 01/21 1000 AC PO 01/22 1001 Prednisone 20 MG DAILY 01/19 1000 AC PO 01/20 1001 Prednisone 30 MG DAILY 01/17 1045 DC 01/18 PO 0921 Ramelteon 8 MG .STK-MED ONE 01/17 2329 DC PO 01/17 2330 Ramelteon 8 MG QPM PRN 01/14 2215 AC 01/16 PO 2109 Rifaximin 550 MG BID 01/15 1000 AC 01/18 PO 0923 Senna 187 MG AT BEDTIME 01/15 2200 AC 01/17 PO 220 Sotalol HCl 40 MG BID 01/14 220 AC 01/18 PO 0920 Tiotropium [place] 1 PUF DAILY 01/15 1000 AC 01/18 INH 0921 Tizanidine HCl 4 MG QPM 01/15 220 AC 01/17 PO 220 Wool Wax Alcohol 1 PAM DAILY 01/15 1000 AC 01/18 TOP 0923 Vital Signs & I&O Last 24 Hrs of Vitals and I&O: Laboratory Tests 01/18 01/17 0655 0620 Chemistry Sodium (137 - 145 mmol/L) 140 141 Potassium (3.5 - 5.1 mmol/L) 3.9 4.2 Chloride (98 - 107 mmol/L) 98 99 Carbon Dioxide (22 - 30 mmol/L) 33 H 32 H Anion Gap (5 - 16) 9 9 BUN (7 - 17 mg/dL) 35 H 38 H Creatinine (0.5 - 1.0 mg/dL) 1.2 H 1.3 H Estimated GFR (>60 ml/min) 45 L 41 L BUN/Creatinine Ratio (7 - 25 %) 29.2 H 29.2 H Phosphorus (2.5 - 4.5 mg/dL) 3.5 3.8 Magnesium (1.6 - 2.3 mg/dL) 2.2 2.1 Microbiology Date/Time Procedure - Status Source Growth 01/17 928 Respiratory Culture - CAN LOWER RESP Cancelled: SPECIMEN NOT RECEIVED IN LABORATORY 01/17 928 Gram Stain - CAN LOWER RESP Cancelled: SPECIMEN NOT RECEIVED IN LABORATORY 01/15 155 Respiratory Culture - CAN LOWER RESP Cancelled: SPECIMEN NOT RECEIVED IN LABORATORY 01/15 1551 Gram Stain - CAN LOWER RESP Cancelled: SPECIMEN NOT RECEIVED IN LABORATORY Vital Signs Date Time Temp Pulse Resp B/P B/P Pulse O2 O2 Flow FiO2 Mean Ox Delivery Rate 01/18 08 94 Room Air Room Air 01/18 08 98.7 52 20 130/68 93 Room Air 01/17 2200 98.8 42 20 110/60 93 Room Air 01/17 2027 96 Room Air Room Air 01/17 1601 98.8 46 18 128/62 94 Room Air Intake & Output 01/18 1600 01/18 0800 01/18 0000 Intake Total 200 200 Output Total 800 900 Balance -600 -700 Intake, Oral 200 200 Output, Urine 800 900 Patient 239 lb Weight Impression/Plan Impression/Plan Impression/Plan: Physical Exam General Appearance Alert, Oriented X3, Cooperative, No Acute Distress Skin No Rashes, Skin laceration om lateral serface of left knee with erythema, no discharge or tenderness Skin Temp/Moisture Exam: Warm/Dry HEENT Atraumatic, PERRLA, EOMI, Mucous Membr. moist/pink, skin lesion over left side of frontal bone of cranial vault Neck Supple, JVP elevated Lymphatic mo cervical lymphadenopathy Cardiovascular Regular Rate, Normal S1, Normal S2, No Murmurs Lungs bilateral decrease air entery and basal course crackles. fine inspiratory wheeze Abdomen Normal Bowel Sounds, Soft, No Tenderness, No Hepatospenomegaly Neurological Normal Gait, Normal Speech, Strength at 5/5 X4 Ext, Normal Tone, Sensation Intact, Cranial Nerves 3-12 NL, Reflexes 2+ Extremities No Clubbing, No Cyanosis, Normal Pulses, BL LE pedal edema +1, erythema chronic, no weepimg or tenderness CHEST CT IMPRESSION: 1. No central or segmental pulmonary emboli. 2. Scattered bilateral groundglass opacities, right greater than left. This could represent early infiltrates, prominent interstitial fluid indicating fluid overload, or patchy atelectasis. Correlation for infection or fluid overload is recommended. 3. Cardiomegaly. 4. Scattered, nonspecific mediastinal lymph nodes, not significantly changed since the chest CT dated 04/30/2017. VTE: Negative. This is a morbidly obese lady with ELISE non compliant (with recent wt loss) with significant ongoing smoking history, mild obstructive lung disease by pfts in 2011, previous history of mediastinal lymphadenopathy with biopsy suggestive of silica exposure may have mild silicosis, chronic lung disease, severe diastolic dysfunction with pulmonary hypertension secondary to diastolic dysfunction, chronic lower extremity edema with vascular insufficiency with recurrent cellulitis, dilated aorta, now comes here with Cough wheezing shortness of breath in a lady with obstructive lung disease with wheezing consistent with * Patient has mild obstructive lung disease from previous PFTs but she continues to smoke and she has not had any PFTs in the recent past. Has probably a viral illness with mild wheezing * SIg diastolic chf as noted in the ct * Previous history of silica exposure with stable mediastinal lymphadenopathy with previous biopsy suggestive of silica exposure with lymphadenopathy. No clinical evidence suggestive of significant worsening of silicosis. * Severe restrictive heart disease with normal ejection fraction with acute congestive diastolic heart failure * Paroxysmal atrial fibrillation not on anticoagulation therapy. * Chronic anemia with chronic kidney disease. * Chronic lower extremity venous insufficiency with recurrent cellulitis. * Anxiety and depression. * Significant obstructive sleep apnea in the past, noncompliant with her CPAP. ( However patient has weight loss in the recent past.) * Significant tracheobronchomalacia due to recurrent bronchitis * Chronic pain syndrome with probable fibromyalgia with previous vasculitis workup negative. Pt does have elise and high risk for hypercarbia * Insomnia, IBS, depression and anxiety relatively stable. Pt on Rifaxamin * Mild to moderate pulmonary hypertension related to obstructive sleep apnea and severe diastolic dysfunction. Patient does have stage III diastolic dysfunction with restrictive filling pattern in the recent echocardiogram. * Ongoing cigarette smoking with chronic lung disease. Patient is high risk for malignancy. * Aortic dilatation. RECOMMENDATION * Wean steroids in 5 days * Continue diuresis * Smoking cessation counseling was done. * DC abx * Sputum culture * Watch her renal function. * Continue her nebulizer therapy, albuterol as needed. * Continue Spiriva. * Continue her Symbicort for now. ok to follow up with me in the office, would need full pft and sleep study as out pt Will follow
[2017-01-18 16:38] VITALS: BP 108/66
[2017-01-19 01:18] VITALS: BP 110/60
[2017-01-19 08:01] VITALS: BP 122/74
--- NOTE | 2017-01-19 09:16 | PN- Housestaff ---
FABIOLA PICHARDO 01/19/17 0915: Subjective Follow-up For: CHF exacerbation COPD exacerbation Hypoxic respiratory failure Iron deficiency anemia Complaints: morning headache Tele-Events Since Last Visit: Sinus rhythm, sinus bradycardia. HR 42 through 61 BPM. Subjective: Interval history: There were no major events overnight. This morning Ms. Avila mentions slight morning headache. She denies any fevers, chills, chest pain, palpitations, shortness of breath or nausea, abdominal pain. Review of Systems Constitutional: Reports: see HPI. EENTM: Reports: no symptoms. Cardiovascular: Reports: see HPI. Respiratory: Reports: see HPI. Gastrointestinal: Reports: no symptoms. Musculoskeletal: Reports: see HPI. Objective Last 24 Hrs of Vital Signs/I&O Vital Signs Date Time Temp Pulse Resp B/P B/P Pulse O2 O2 Flow FiO2 Mean Ox Delivery Rate 01/19 0851 96 Room Air 01/19 0801 98.2 54 18 122/74 94 Room Air 01/19 0118 98.1 55 18 110/60 93 Room Air 01/18 1915 93 Room Air 01/18 1638 98.3 43 18 108/66 93 Room Air Intake & Output 01/19 1600 01/19 0800 01/19 0000 Intake Total 240 120 Output Total 700 950 Balance -460 -830 Intake, Oral 240 120 Number 1 Bowel Movements Output, Urine 700 950 Patient 235 lb Weight Weight Standing Scale Measurement Method Physical Exam General Appearance: Alert, Cooperative, No Acute Distress Skin: ulcer on left knee stable at this time in a clean dressing. HEENT: EOMI, Mucous Membr. moist/pink Cardiovascular: Regular Rate, Normal S1, Normal S2, bradycardia (cardiac) Lungs: inspiratory stridor/rhonchi bilaterally. Abdomen: Normal Bowel Sounds, Soft, No Tenderness Extremities: Normal Pulses, 2+ pitting edema bilateral lower extremities. Stable Current Medications: Current Medications Sig/Barbara Start time Last Medication Dose Route Stop Time Status Admin Acetaminophen 1,000 MG TID 01/15 1000 AC 01/18 PO 2144 Albuterol Sulfate 3 ML Q4P PRN 01/16 1400 AC 01/18 INH 0824 Albuterol Sulfate 2 PUF Q6P PRN 01/14 2215 AC INH Budesonide/ 2 PUF BID 01/15 1000 AC 01/18 Formoterol Fumarate INH 2142 Clotrimazole 1 PAM BID 01/15 1000 DC 0512 TOP 2154 Cyanocobalamin 500 MCG DAILY 01/15 1000 AC 01/18 PO 0921 Docusate Sodium 100 MG DAILY 01/15 1000 AC 01/18 PO 0921 Fentanyl Citrate 25 MCG Q72H 01/14 2045 AC 01/17 TOP 2100 Ferrous Sulfate 325 MG BID 01/15 1000 AC / PO 2144 Furosemide 40 MG DAILY 01/19 1000 AC PO Furosemide 20 MG ONCE ONE 01/18 1700 DC 05/12 IV 01/18 1701 1600 Gabapentin 100 MG TID 01/16 1600 AC 01/18 PO 2141 Guaifenesin 600 MG Q12 01/17 1000 AC 01/18 PO 2143 Heparin Sodium 5,000 UNIT Q8 01/15 0600 AC 01/19 (Porcine) SC 0613 Hydroxyzine HCl 25 MG DAILY NEEDED PRN 01/14 2215 AC PO Nystatin 1 PAM TID 01/17 1600 AC 01/18 TOP 2151 Omeprazole 40 MG DAILY AC 01/15 0700 AC 01/19 PO 0612 Oxycodone HCl 10 MG ONCE PRN 01/19 0400 AC 01/19 PO 0415 Oxycodone HCl 10 MG TID 01/15 1000 AC 01/18 PO 2141 Prednisone 10 MG DAILY 01/21 1000 AC PO 01/22 1001 Prednisone 20 MG DAILY 01/19 1000 AC PO 01/20 1001 Ramelteon 8 MG .STK-MED ONE 01/18 2201 DC PO 01/18 220 Ramelteon 8 MG QPM PRN 01/14 2215 AC 01/18 PO 2302 Rifaximin 550 MG BID 01/15 1000 AC 01/18 PO 2142 Senna 187 MG AT BEDTIME 01/15 2200 AC 01/18 PO 2143 Sotalol HCl 40 MG BID 01/14 2200 AC 01/18 PO 2145 Tiotropium [place] 1 PUF DAILY 01/15 1000 AC 01/18 INH 0921 Tizanidine HCl 4 MG QPM 01/15 2200 AC 01/18 PO 220 Wool Wax Alcohol 1 PAM DAILY 01/15 1000 AC 01/18 TOP 09 Assessment/Plan Assessment: Patient is a 71-year-old morbidly obese female with past medical history significant for coronary artery disease, history of chronic diastolic congestive heart failure, paroxysmal atrial fibrillation not on any anticoagulation due to GI bleed in the past, COPD, chronic venous insufficiency with left lower extremity non-healing wound ulcer following up with wound management, CK D stage IIIa, hypertension, history of cirrhosis complicated with devices, chronic back pain on opiates came with chief complaint of shortness of breath and found to be hypoxic as well as pulmonary edema was noticed on CTA. Patient was admitted on telemetry floor and will take care for the following problems Problem #1 acute hypoxic respiratory failure * Stable on room air for the past 24 hours * We will discharge the patient on furosemide 40 mg daily as she has remained stable on dose relative to previous 20 mg daily. Negative net fluid balance as far. Renal function has remained stable * Rhonchi at this time likely secondary to chronic tobacco use. Continue with incentive spirometry and Acapella therapy Problem #2 history of paroxysmal atrial fibrillation not on any anticoagulation * Persistent asymptomatic bradycardia * The patient has been on sotalol 40 mg BID. Despite the mild drop in her GFR which has remained relatively stable we will continue this current dose of sotalol 40 mg BID per recommendations of Dr. Ayala Problem #3: Lethargy/somnolence * Resolved at this time * Dose of gabapentin was decreased from 200-100 mg TID. No worsening in symptoms. We'll consider discharging her on this dose with adjustment on an outpatient basis based on symptoms Problem #4: Iron deficiency anemia * Stable. Iron studies: Iron 65, TIBC 295, ferritin 47. * Continue with current ferrous sulfate supplementation in the setting of resolution of previously present on deficiency Problem #5: History of chronic back pain. Stable at this time Problem #6: chronic left leg nonhealing ulcer * Wound dressing changes Pharmacological DVT prophylaxis Patient is full code Heart healthy diet Problem List: 1. COPD exacerbation 2. CHF exacerbation 3. Bradycardia 4. Iron deficiency anemia Pain Ratin Pain Location: Headache and upper back Pain Goal: Pain 4 or less Pain Plan: Pain pathway Tomorrow's Labs & Rationales: None required DVT/Prophylaxis: pharmacological Consulting Request: Consulting Specialty: Cardiology Discharge Plan Discharge Disposition: home Stable for Discharge? Yes Anticipated Discharge (Day): today If Discharged Today/In 24 Hrs: enter antc discharge ord, W-10/discharge paper done, DC summary done, CMR done JONO HARVEY MD 01/19/17 1244: Attending MD Review Statement Attending Statement Attending MD Statement: examined this patient, discuss w/resident/PA/[employer], agreed w/resident/PA/[employer], reviewed EMR data (avail), discussed with nursing, discussed with case mgmt, reviewed images Attending Assessment/Plan: Patient seen and examined, feels overall better. just feels tired as could not get good enough sleep at night. hemodynamically stable and on lung exam, not much wheezing appriciated. Overall improved. Lasix has been switched to oral. Patient has diuresed significant amount. Patient is medically stable for discharge home today.
--- NOTE | 2017-01-19 15:15 | RADIOLOGY REPORT ---
EXAMINATION: XR PORTABLE CHEST CLINICAL INFORMATION: Persistent hypoxia. COMPARISON: Portable chest x-ray 01/17/2017. TECHNIQUE: Portable frontal view of the chest was obtained. FINDINGS: The lungs are hypoinflated, without focal airspace consolidation. No pleural effusions or pneumothoraces are identified. Cardiomediastinal contours are stable and there is stable prominence of the cardiac silhouette. No overt pulmonary edema. Soft tissues are unremarkable. No acute osseous abnormality is identified. IMPRESSION: Stable appearance of the chest. Stable prominence of the cardiac silhouette, without overt pulmonary edema.
== END 2017-01-19 15:06 | DRG 291 ==
LOC: ERH 14:34 → ERHI 18:36 → 1NO 18:36 → ENRESERV 01-15 16:14 → 1NO 01-15 17:37 → ENPENDDIS 01-19 10:37 → 1NO 01-19 15:06
PROVIDERS: Internal Medicine; Physician Assistant; Student in an Organized Health Care Education/Training Program; ADMIT Student in an Organized Health Care Education/Training Program
DX: I13.0 Hypertensive heart and chronic kidney disease with heart failure and stage 1 through stage 4 chronic kidney disease, or unspecified chronic kidney disease (principal); J96.01 Acute respiratory failure with hypoxia; I50.33 Acute on chronic diastolic (congestive) heart failure; I27.2 Other secondary pulmonary hypertension; J44.1 Chronic obstructive pulmonary disease with (acute) exacerbation; L97.829 Non-pressure chronic ulcer of other part of left lower leg with unspecified severity; E66.01 Morbid (severe) obesity due to excess calories; I87.2 Venous insufficiency (chronic) (peripheral); M79.7 Fibromyalgia; E78.5 Hyperlipidemia, unspecified; I73.9 Peripheral vascular disease, unspecified; G47.33 Obstructive sleep apnea (adult) (pediatric); K21.9 Gastro-esophageal reflux disease without esophagitis; K44.9 Diaphragmatic hernia without obstruction or gangrene; I25.10 Atherosclerotic heart disease of native coronary artery without angina pectoris; G89.4 Chronic pain syndrome; I48.0 Paroxysmal atrial fibrillation; F41.9 Anxiety disorder, unspecified; F32.9 Major depressive disorder, single episode, unspecified; F17.210 Nicotine dependence, cigarettes, uncomplicated; N18.3 Chronic kidney disease, stage 3 (moderate); D50.9 Iron deficiency anemia, unspecified; Z86.711 Personal history of pulmonary embolism; Z85.819 Personal history of malignant neoplasm of unspecified site of lip, oral cavity, and pharynx
CPT/HCPCS: 1NP; ERO; 36415; 82436; 87040; 87070; 93005; 93010; 94644; 96374; 96375; 97116-GO; 97161-GP; J0456; J1644; J1650; J1940; J2920; J2930; J3490; J7040; J7512